=== PATIENT | female | born 1935 | race Caucasian/White ===

== ENCOUNTER 2016-05-23 12:44 | Emergency (ER) | payer OTHER ==
[~2016-05-23] VITALS: Ht 147.3 cm; Wt 40.8 kg
[~2016-05-23 12:44] MED LIST: ADALAT PO; AMARYL2 MG PO; ASPI-COR81 M1 PO; BENTYL10 MG PO; CALCIUM CARB500 MG PO; CLARITIN10 M1 PO; CLONIDINE0.1 M1 PO; DIABETA5 M1 PO; FLONASE NASAL50 MCG NS; GLIMEPIRIDE2 MG PO; HCTZ PO; JANUVIA25 MG PO; JANUVIA50 MG PO; LASIX20 MG PO; LASIX40 M1 PO; LOTRIMIN 1%30 GM TP; LYRICA75 MG PO; MECLIZINE HCL12.5 M1 PO; MICRONASE5 MG PO; NORVASC10 MG PO; PHENERGAN/DEXTRO5 ML PO; PROCARDIA XL90 MG PO; RENA-VITE RX1 TAB PO; ROCALTROL0.5 MCG PO; SIMVASTATIN20 M1 PO; TUMS500 M1 PO; ZESTRIL10 M1 PO; ZOCOR20 MG PO
[2016-05-23 13:18] VITALS: BP 124/72
--- NOTE | 2016-05-23 18:14 | NUR ---
PATIENT LEFT WITHOUT BEING SEEN BY DR. LOPEZ. NO FURTHER CARE PROVIDED FOR PATIENT.
[2016-08-01] MEDS ORDERED: LIPITOR20 MG PO (22:54)
[2016-08-01] MEDS ORDERED: CLARITIN10 MG PO (22:54)
[2016-08-06] MEDS ORDERED: AUGMENTIN 500 M1 TAB PO (09:56)
[2016-08-06] MEDS ORDERED: ASPIRIN81 M1 PO (10:20)
== END 2016-05-23 18:14 | disposition left against medical advice (07) ==
LOC: MED 12:44
DX: R52 Pain, unspecified (principal); Z53.21 Procedure and treatment not carried out due to patient leaving prior to being seen by health care provider

== ENCOUNTER 2016-07-12 10:51 | Emergency (ER) | payer OTHER ==
[~2016-07-12] VITALS: Ht 139.7 cm; Wt 45.4 kg
[2016-07-12 10:59] VITALS: BP 130/74
--- NOTE | 2016-07-12 12:03 | NUR ---
Patient ambulated to bed 5. RN evaluating patient at bedside.
--- NOTE | 2016-07-12 12:05 | NUR ---
PT BIB DAUGHTER FOR EVALUATION OF GENERALIZED WEAKNESS SINCE THIS AM. HX DM, ESRD ON DIALYSIS 3X WEEKLY W/LAST SESSION YESTERDAY. DENIES N/V/D; SKIN IS PINK/WARM/DRY; AAOX4 WITH EVEN AND STEADY GAIT; LUNGS CLEAR BL; HR EVEN AND REGULAR; PT DENIES ANY FEVER, CP, SOB, OR COUGH AT THIS TIME; PATIENT STATES PAIN OF 0/10 AT THIS TIME; VSS; PATIENT POSITIONED FOR COMFORT; HOB ELEVATED; BEDRAILS UP X2; BED DOWN. ER MD MADE AWARE OF PT STATUS.
--- NOTE | 2016-07-12 12:14 | NUR ---
Dr. Bunn evaluating patient at bedside.
--- NOTE | 2016-07-12 12:34 | NUR ---
PT TAKEN TO CT VIA GURNEY BY CLARENCE YOUNGER
--- NOTE | 2016-07-12 12:34 | NUR ---
Patient taken to CT scan via gurney by [employer].
--- NOTE | 2016-07-12 12:50 | NUR ---
PT PLACED BACK ON MONITOR, NO ACUTE DISTRESS NOTED, ABLE TO ANSWER QUESTIONS APPROPRIATELY WITH GRAND DAUGHTER INTERPRETATION AT BEDSIDE, WILL CONTINUE TO MONITOR
--- NOTE | 2016-07-12 14:55 | NUR ---
LUNCH PROVIDED TO AAO PT WITH GRAND DAUGHTER AT BEDSIDE, NO DISTRESS NOTED, ABLE TO ANSWER QUESTIONS APPROPRIATELY
--- NOTE | 2016-07-12 15:35 | NUR ---
PT ASSISTED TO THE RESTROOM VIA WHEEL CHAIR BY MICHELLE ESCALONA FOR URINE SPECIMEN, TOLERATED WELL, PLACED BACK ON MONITOR, GRAND DAUGHTER AT BEDSIDE, WILL CONTINUE TO MONITOR
[2016-07-12 17:57] VITALS: BP 134/71
--- NOTE | 2016-07-12 17:57 | NUR ---
Patient discharged with v/s stable. Written and verbal after care instructions given and explained. Patient verbalized understanding. Ambulatory with steady gait. All questions addressed prior to discharge. Advised to follow up with PMD.
[2016-08-01] MEDS ORDERED: CLARITIN10 MG PO (22:54)
[2016-08-01] MEDS ORDERED: LIPITOR20 MG PO (22:54)
[2016-08-06] MEDS ORDERED: AUGMENTIN 500 M1 TAB PO (09:56)
[2016-08-06] MEDS ORDERED: ASPIRIN81 M1 PO (10:20)
== END 2016-07-12 17:57 | disposition home or self-care (01) ==
LOC: MED 10:51
DX: R41.82 Altered mental status, unspecified (principal); I12.9 Hypertensive chronic kidney disease with stage 1 through stage 4 chronic kidney disease, or unspecified chronic kidney disease; E11.22 Type 2 diabetes mellitus with diabetic chronic kidney disease; N18.9 Chronic kidney disease, unspecified; Z99.2 Dependence on renal dialysis; Z79.899 Other long term (current) drug therapy
CPT/HCPCS: 70450; 71010; 80053; 81002; 82550; 82948; 84484; 85025; 93005; 99285; Q0092

== ENCOUNTER 2016-08-01 21:16 | Inpatient (IN) | payer OTHER ==
[~2016-08-01] VITALS: Ht 147.3 cm; Wt 44.5 kg
[~2016-08-01 21:16] MED LIST changes: -ADALAT PO; -AMARYL2 MG PO; +AMLO10TA PO; -ASPI-COR81 M1 PO; -BENTYL10 MG PO; +CALC0.5S6 PO; -CALCIUM CARB500 MG PO; -CLARITIN10 M1 PO; -CLONIDINE0.1 M1 PO; -DIABETA5 M1 PO; -FLONASE NASAL50 MCG NS; -GLIMEPIRIDE2 MG PO; -HCTZ PO; -JANUVIA25 MG PO; -JANUVIA50 MG PO; -LASIX20 MG PO; -LASIX40 M1 PO; +LISI10TA11 PO; -LOTRIMIN 1%30 GM TP; +LYR75 PO; -LYRICA75 MG PO; +MECL-270 PO; -MECLIZINE HCL12.5 M1 PO; -MICRONASE5 MG PO; -NORVASC10 MG PO; -PHENERGAN/DEXTRO5 ML PO; -PROCARDIA XL90 MG PO; -RENA-VITE RX1 TAB PO; -ROCALTROL0.5 MCG PO; +SIMV20TA1 PO; -SIMVASTATIN20 M1 PO; +SITA25TA3 PO; -TUMS500 M1 PO; -ZESTRIL10 M1 PO; -ZOCOR20 MG PO
[2016-08-01 21:29] VITALS: BP 140/74
--- NOTE | 2016-08-01 21:40 | NUR ---
PT TAKEN TO BED 3
--- NOTE | 2016-08-01 21:45 | NUR ---
80 Y/O F BIB FAMILY W/C/O GENERAL WEAKNESS AND DIZZINESS X YESTERDAY. PT ON DIALYSIS, SHUNT TO R UPPER CHEST. ON MONITOR, VSS. ER MADE AWARE.
--- NOTE | 2016-08-01 21:52 | NUR ---
Dr. Ross evaluating patient at bedside.
--- NOTE | 2016-08-01 22:27 | NUR ---
X-Ray at bedside.
[2016-08-01 22:29] LABS: BASOPHILS # (AUTO) 0.1 K/uL (0.00-0.22); EOSINOPHILS # (AUTO) 0.1 K/uL (0-0.4); MONOCYTES # (AUTO) 0.7 K/uL (0.8-1.0)
[2016-08-01 22:32] LABS: BASOPHILS % (AUTO) 2.3 % (0.0-2.0); EOSINOPHILS % (AUTO) 2.7 % (0.0-4.0); HEMATOCRIT 34.4 % (36-48); HEMOGLOBIN 11.4 g/dL (12.0-16.0); LYMPHOCYTES # (AUTO) 1.4 K/uL (2.5-16.5); LYMPHOCYTES % (AUTO) 28.8 % (20.5-51.1); MEAN CORPUSCULAR HEMOGLOBIN 33 pg (27-31); MEAN CORPUSCULAR HGB CONC 33 g/dL (33-37); MEAN CORPUSCULAR VOLUME 99 fL (80-94); NEUTROPHILS # (AUTO) 2.4 K/uL (1.8-7.7); NEUTROPHILS % (AUTO) 50.5 % (42.2-75.2); PLATELET COUNT (AUTO) 173 K/uL (140-450); RED BLOOD CELL COUNT(AUTO) 3.47 MIL/uL (4.20-5.40); RED CELL DISTRIBUTION WIDTH 13.7 % (11.6-13.7); WHITE BLOOD COUNT (AUTO) 4.7 K/uL (4.8-10.8)
--- NOTE | 2016-08-01 22:39 | NUR ---
PT RESTING IN BED. ASLEEP ON MOBITOR, VSS. NO S/S OF DISTRESS NOTED AT THE MOMENT.
[2016-08-01 22:47] LABS: PARTIAL THROMBOPLASTIN TIME 24.3 secs (22-35.6); PROTHROMBIN TIME 10.5 secs (10.8-13.4)
[2016-08-01 22:50] LABS: LACTIC ACID 0.8 mmol/L (0.4-2.0)
[2016-08-01] MEDS ORDERED: LORA10TA19 PO (22:54)
[2016-08-01] MEDS ORDERED: ATOR20TA PO (22:54)
[2016-08-01 22:55] LABS: ALANINE AMINOTRANSFERASE 14 U/L (12-78); ALBUMIN 3.3 g/dL (3.4-5.0); ALKALINE PHOSPHATASE 146 U/L (46-116); ASPARTATE AMINOTRANSFERASE 19 U/L (15-37); CALCIUM 8.1 mg/dL (8.5-10.1); CARBON DIOXIDE 30.4 mmol/L (21-32); CHLORIDE 97 mmol/L (98-107); GLUCOSE 110 mg/dL (74-106); POTASSIUM 4.4 mmol/L (3.5-5.1); SODIUM SERUM 135 mmol/L (136-145); TOTAL BILIRUBIN 0.5 mg/dL (0.0-1.0); TOTAL PROTEIN, SERUM 7.8 g/dL (6.4-8.2); UREA NITROGEN, BLOOD 23 mg/dL (7-18)
[2016-08-01 23:03] LABS: CREATININE 4.5 mg/dL (0.6-1.3)
[2016-08-01 23:04] LABS: MONOCYTES % (AUTO) 15.7 % (1.7-9.3)
--- NOTE | 2016-08-01 23:30 | NUR ---
PT RESTING IN BED, ON MONITOR. NO S/S OF DISTRESS NOTED SO FAR. WILL CONT TO MONITOR.
[2016-08-01 23:36] LABS: APPEARANCE,URINE CLOUDY (CLEAR); BILIRUBIN,URINE NEGATIVE (NEGATIVE); BLOOD, URINE 1+ (NEGATIVE); COLOR,URINE YELLOW (YELLOW); LEUKOCYTE ESTERASE ,URINE 1+ (NEGATIVE); NITRITE, URINE NEGATIVE (NEGATIVE); PH,URINE 7.5 (5.0-9.0); PROTEIN,URINE 3+ (NEGATIVE); UGLUCOSE NEGATIVE (NEGATIVE); UROBILINOGEN,URINE 0.2 EU/dL (0.2 - 1)
[2016-08-01 23:51] LABS: BACTERIA,URINE 4+ /HPF (None Seen); MUCUS,URINE 4+ /LPF (None Seen); SQUAMOUS EPITHELIAL CELL,UR 80-100 /LPF (0-3 (FEW)); WBC,URINE TOO MANY TO COUNT /HPF (0-5)
[2016-08-02] MEDS ORDERED: LEVOFLOXACIN 500 MG/D5W PREMIX 100 ML IV ONE
--- NOTE | 2016-08-02 00:16 | NUR ---
PT ASLEEP, ANTIBIOTICS RUNNING, ON MONITOR. VSS, NO S/S OF DISTRESS NOTED AT THE MOMENT. WILL CONT TO MONITOR.
--- NOTE | 2016-08-02 00:25 | NUR ---
Patient will be admitted to care of DR RIVERS. Admited to TELEMETRY. Will go to room 110 B. Belongings list completed. Report to QUEENIE ARAGON.
[2016-08-02 00:40] VITALS: BP 133/77
--- NOTE | 2016-08-02 00:40 | NUR ---
ADMITTED THIS 80 YEAR OLD FEMALE FROM ER PER MANJIT WITH CC OF DIZZINESS AND GEN WEAKNESS AFTER HEMODIALYSIS YESTERDAY, ASSESSMENT DONE, VITAL SIGNS STABLE, WITH RT CHEST TUNNELED HD CATH, DRESSING DRY AND INTACT, DENIES ANY PAIN, ORIENTED TO ROOM AND CALL LIGHT, SAFETY MEASURES IN PLACE, CALL LIGHT WITHIN REACH.
--- NOTE | 2016-08-02 00:42 | NUR ---
PT TRASFERED TO FLOOR VIA GURREBECCA, MONITOR IN BED, ACCOMPANIED BY RN AND EMT.
[2016-08-02] MEDS ORDERED: MECLIZINE 25 MG TAB PO PRN (03:15)
[2016-08-02] MEDS ORDERED: HYDROcodone/APAP 7.5/325 MG 1 TAB PO PRN (03:15)
[2016-08-02] MEDS ORDERED: ONDANSETRON 4 MG/2 ML VIAL IVP PRN (03:15)
--- NOTE | 2016-08-02 03:45 | NUR ---
PT TAKEN TO CT VIA WHEELCHAIR FOR CT OF HEAD WITHOUT CONTRAST.
[2016-08-02] MEDS ORDERED: INSULIN LISPRO SLIDING SCALE 100 UNITS/ML VIAL SUBQ PRN (03:50)
[2016-08-02] MEDS ORDERED: DEXTROSE 50% 50 ML SYR IVP PRN (03:50)
[2016-08-02 04:00] VITALS: BP 109/65
[2016-08-02 04:00] LABS: CHOL/HDL RATIO 1.8 (1-4.5); FREE T4 (FREE THYROXINE) 0.91 ng/dL (0.76-1.46); PHOSPHORUS 4.9 mg/dL (2.5-4.9); THYROID STIMULATING HORMONE 1.27 uIU/mL (0.34-3.76)
--- NOTE | 2016-08-02 04:07 | NUR ---
PT BACK FROM CT, FIRST DONE OF ROCEPHIN IVPB STARTED, MONITORED FOR REACTION.
[2016-08-02] MEDS ORDERED: cefTRIAXone 1,000 MG VIAL ONE (04:08)
--- NOTE | 2016-08-02 06:00 | NUR ---
PT SLEEPING, EASILY AROUSABLE, BLOOD SUGAR CHECKED WITH 103 RESULT, DENIES ANY PAIN, SCD'S APPLIED TO BLE, MONITORED CLOSELY.
[2016-08-02] MEDS: BLOOD GLUCOSE MONITORING 1 DEV DEV FS SCH ×4 (06:37→20:30)
--- NOTE | 2016-08-02 07:00 | NUR ---
RECEIVED REPORT FROM NIGHT NURSE, PT IS AAOX4 DANISH SPEAKING, ON ROOM AIR, SKIN INTACT , RIGHT UPPER CHEST TUNNEL CATHETER, IV TO LET WRIST 20G SALINE LOCK, INITIAL ASSESSMENT COMPLETED, REVIEWED PLAN OF CARE WITH PT, PT VERBALIZED UNDERSTANDING, ALL SAFETY PRECAUTIONS MET. CALL LIGHT WITHIN REACH. WILL CONTINUE TO MONITOR.
[2016-08-02 08:00] VITALS: BP 127/65
[2016-08-02] MEDS: amLODIPine 5 MG TAB PO SCH (09:00)
[2016-08-02] MEDS: LISINOPRIL 10 MG TAB PO SCH (09:00)
[2016-08-02] MEDS: PANTOPRAZOLE 40 MG INJ VIAL IVP SCH (09:32)
[2016-08-02] MEDS: LORATADINE 10 MG TAB PO SCH (09:32)
[2016-08-02] MEDS: PREGABALIN 25 MG CAP PO SCH ×2 (09:33→20:26)
[2016-08-02] MEDS: DOCUSATE SODIUM 100 MG GELCAP PO SCH ×2 (09:35→20:25)
--- NOTE | 2016-08-02 09:35 | NUR ---
DUE MEDICATIONS GIVEN PT TOLERATED WELL, BP MEDICATIONS NOT GIVEN BP OF 104/53, HR 53. ALL NEEDS MET. WILL CONTINUE TO MONITOR.
--- NOTE | 2016-08-02 09:54 | NUR ---
PATIENT HAS BEEN SCREENED AND CATEGORIZED MODERATE NUTRITION RISK. PATIENT WILL BE SEEN WITHIN 3-5 DAYS OF ADMISSION. 08/04/16-08/06/[address]
[2016-08-02] MEDS ORDERED: BLOOD GLUCOSE MONITORING 1 DEV DEV FS SCH (11:30)
[2016-08-02] MEDS ORDERED: NACL 0.9% 1,000 ML IV SCH (11:30)
[2016-08-02] MEDS ORDERED: ALBUTEROL SULFATE/IPRATROPIU 3 ML SOL IH PRN (11:40)
--- NOTE | 2016-08-02 11:40 | NUR ---
CHECKED IN ON PT. NO S/S OF DISTRESS OR DISCOMFORT NOTED. ALL NEEDS MET. WILL CONTINUE TO MONITOR.
[2016-08-02 12:00] VITALS: BP 121/67
[2016-08-02] MEDS ORDERED: PIPER/TAZO 2.25GM/D5W PREMIX 50 ML IV SCH (13:00)
--- NOTE | 2016-08-02 13:47 | NUR ---
DUE MEDICATIONS GIVEN. ALL NEEDS MET. CALL LIGHT WITHIN REACH. WILL CONTINUE TO MONITOR.
--- NOTE | 2016-08-02 15:00 | NUR ---
[facility] [phone].
[2016-08-02] MEDS: ALBUTEROL SULFATE/IPRATROPIU 3 ML SOL IH SCH ×3 (15:42→23:31)
--- NOTE | 2016-08-02 15:45 | NUR ---
FAMILY CURRENTLY AT BEDSIDE. UPDATED FAMILY ON PLAN OF CARE. FAMILY VERBALIZED UNDERSTANDING.
[2016-08-02 16:00] VITALS: BP 147/71
--- NOTE | 2016-08-02 16:41 | NUR ---
P.T. NOTES P.T. EVAL DONE; NURSING TO AMBULATE PATIENT AD NORY.
--- NOTE | 2016-08-02 17:16 | NUR ---
PT CURRENTLY IN BED. ALL NEEDS MET. INFORMED PT SHE WILL BE GETTING HEMODIALYSIS TOMORROW, PT VERBALIZED UNDERSTANDING.
--- NOTE | 2016-08-02 19:12 | NUR ---
ENDORSED PLAN OF CARE TO NIGHT NURSE, PT IN STABLE CONDITION.
--- NOTE | 2016-08-02 19:15 | NUR ---
RECEIVED PT AWAKE SITTING ON BED TALKING TO FAMILY MEMBERS AT BEDSIDE, VITAL SIGNS STABLE, DENIES ANY PAIN OR SOB, PT STILL HAVING OCCASIONAL DIZZINESS, SAFETY MEASURES IN PLACE, PLAN OF CARE DISCUSSED, FOR HEMODIALYSIS TOMORROW, PT AWARE, RT CHEST TUNNELED HD CATH IN PLACE, DRESSING DRY AND INTACT, CALL LIGHT WITHIN REACH.
[2016-08-02 20:00] VITALS: BP 107/61
[2016-08-02] MEDS: ATORVASTATIN 20 MG TAB PO SCH (20:25)
--- NOTE | 2016-08-02 21:00 | NUR ---
BLOOD SUGAR CHECKED WITH 252 RESULT, COVERAGE GIVEN, SNACK PROVIDED, DUE PO MEDICATIONS GIVEN, ALL NEEDS ATTENDED.
[2016-08-03] VITALS: BP 100/55
--- NOTE | 2016-08-03 | NUR ---
PT SLEEPING, EASILY AROUSABLE, VITAL SIGNS STABLE, DENIES ANY PAIN, CONTINUE TO MONITOR CLOSELY.
--- NOTE | 2016-08-03 03:30 | NUR ---
PT AWAKE, FEELS LIKE HER BLOOD SUGAR IS LOW, BLOOD SUGAR CHECKED DONE WITH 127 RESULT, VITAL SIGNS STABLE, DENIES ANY PAIN, NO SOB NOTED, MONITORED CLOSELY.
[2016-08-03] MEDS: ALBUTEROL SULFATE/IPRATROPIU 3 ML SOL IH SCH ×6 (03:45→23:21)
[2016-08-03 04:00] VITALS: BP 120/68
--- NOTE | 2016-08-03 06:00 | NUR ---
AM LABS DRAWN, BLOOD SUGAR CHECKED WITH 100 RESULT, FOR HEMODIALYSIS TODAY, MONITORED CLOSELY.
[2016-08-03 06:19] LABS: BASOPHILS # (AUTO) 0.2 K/uL (0.00-0.22); BASOPHILS % (AUTO) 3.4 % (0.0-2.0); EOSINOPHILS # (AUTO) 0.2 K/uL (0-0.4); EOSINOPHILS % (AUTO) 3.5 % (0.0-4.0); HEMATOCRIT 30.2 % (36-48); HEMOGLOBIN 9.9 g/dL (12.0-16.0); LYMPHOCYTES # (AUTO) 1.4 K/uL (2.5-16.5); LYMPHOCYTES % (AUTO) 25.4 % (20.5-51.1); MEAN CORPUSCULAR HEMOGLOBIN 33 pg (27-31); MEAN CORPUSCULAR HGB CONC 33 g/dL (33-37); MEAN CORPUSCULAR VOLUME 100 fL (80-94); MONOCYTES # (AUTO) 0.8 K/uL (0.8-1.0); MONOCYTES % (AUTO) 15.1 % (1.7-9.3); NEUTROPHILS % (AUTO) 52.6 % (42.2-75.2); PLATELET COUNT (AUTO) 160 K/uL (140-450); RED BLOOD CELL COUNT(AUTO) 3.02 MIL/uL (4.20-5.40); RED CELL DISTRIBUTION WIDTH 14.3 % (11.6-13.7); WHITE BLOOD COUNT (AUTO) 5.6 K/uL (4.8-10.8)
[2016-08-03] MEDS: BLOOD GLUCOSE MONITORING 1 DEV DEV FS SCH ×4 (06:33→20:29)
[2016-08-03 06:43] LABS: ANION GAP 16.8 (8-16); CALCIUM 8.1 mg/dL (8.5-10.1); CARBON DIOXIDE 24.7 mmol/L (21-32); CHLORIDE 97 mmol/L (98-107); GLUCOSE 95 mg/dL (74-106); POTASSIUM 5.5 mmol/L (3.5-5.1); SODIUM SERUM 133 mmol/L (136-145); UREA NITROGEN, BLOOD 48 mg/dL (7-18)
[2016-08-03 06:53] LABS: MAGNESIUM 2.2 mg/dL (1.8-2.4); PHOSPHORUS 7.5 mg/dL (2.5-4.9)
[2016-08-03 07:08] LABS: CREATININE 6.7 mg/dL (0.6-1.3)
--- NOTE | 2016-08-03 07:15 | NUR ---
PT AWAKE, NO SIGNS OF DISTRESS, REPORT GIVEN TO JAIME JEROME FOR CONTINUITY OF CARE.
--- NOTE | 2016-08-03 07:17 | NUR ---
RECEIVED REPORT FROM NASIM RN. PT RESTING IN BED. AAOX4. NO S/S OF ACUTE DISTRESS. PT DENIES PAIN. IV SITE PATENT AND INTACT. DIALYSIS SITE TO RIGHT UPPER CHEST NOTED. CALL LIGHT WITHIN REACH. SAFETY MEASURES ENSURED. WILL CONTINUE TO MONITOR.
[2016-08-03 07:50] VITALS: BP 128/64
[2016-08-03] MEDS: LORATADINE 10 MG TAB PO SCH (09:06)
[2016-08-03] MEDS: LISINOPRIL 10 MG TAB PO SCH (09:06)
[2016-08-03] MEDS: PREGABALIN 25 MG CAP PO SCH ×2 (09:06→20:25)
[2016-08-03] MEDS: amLODIPine 5 MG TAB PO SCH (09:06)
[2016-08-03] MEDS: PIPER/TAZO 2.25GM/D5W PREMIX 50 ML IV SCH ×2 (09:06→20:33)
[2016-08-03] MEDS: PANTOPRAZOLE 40 MG INJ VIAL IVP SCH (09:06)
[2016-08-03] MEDS: DOCUSATE SODIUM 100 MG GELCAP PO SCH ×2 (09:06→20:26)
--- NOTE | 2016-08-03 09:12 | NUR ---
AM MEDICATIONS GIVEN WITH EDUCATION. PT DENIES PAIN. PT VERBALIZED UNDERSTANDING. PT TOLERATED WELL. WILL CONTINUE TO MONITOR.
[2016-08-03 10:46] LABS: FOLIC ACID 14.4 ng/mL (>3.0)
[2016-08-03] MEDS ORDERED: CALCITRIOL 0.25 MCG CAPLF PO SCH (11:28)
[2016-08-03 12:00] VITALS: BP 120/60
--- NOTE | 2016-08-03 12:00 | NUR ---
DIALYSIS NURSE AT BEDSIDE. NO S/S OF ACUTE DISTRESS. PT DENIES PAIN. WILL CONTINUE TO MONITOR.
[2016-08-03] MEDS ORDERED: LORazepam 0.5 MG TAB PO PRN (14:20)
--- NOTE | 2016-08-03 15:30 | NUR ---
DIALYSIS COMPLETE. 2 L OUT. NO S/S OF ACUTE DISTRESS. PT DENIES PAIN. WILL CONTINUE TO MONITOR.
[2016-08-03 16:00] VITALS: BP 96/52
[2016-08-03] MEDS: CALCIUM ACETATE 667 MG TAB PO SCH (17:00)
--- NOTE | 2016-08-03 19:19 | NUR ---
ENDORSED PLAN OF CARE TO NIGHT RN. PT REMAINS STABLE.
--- NOTE | 2016-08-03 19:30 | NUR ---
RECEIVED REPORT FROM AM NURSE. PT FAMILY AT BEDSIDE. AOX4, ABLE TO VERBALIZE NEEDS. PT DENIES CHEST PAIN, SOB OR S/S OF ACUTE DISTRESS. PRINTS AND DRAWINGS CURATOR IN PLACE. TUNNEL CATH DIALYSIS ACCESS ON RIGHT UPPER CHEST. IV ACCESS ASYMPTOMATIC, PATENT AND INTACT. SALINE LOCKED. DISCUSSED AND REVIEWED PLAN OF CARE WITH PT. PT VERBALIZED UNDERSTANDING. SAFETY MEASURES ENSURED. CALL LIGHT WITHIN REACH. WILL CONTINUE TO MONITOR.
[2016-08-03 20:00] VITALS: BP 97/45
[2016-08-03] MEDS: ATORVASTATIN 20 MG TAB PO SCH (20:25)
[2016-08-03] MEDS: ACETAMINOPHEN 325 MG TAB PO PRN (20:26)
--- NOTE | 2016-08-03 20:42 | NUR ---
ADMINISTERED DUE MEDICATIONS WITH EDUCATION. PT VERBALIZED UNDERSTANDING, TOLERATED MEDS WELL. PT C/O PAIN. SEE PAIN ASSESSMENT. BP 97/45, TYLENOL ADMINISTERED WITH EDUCATION. PT VERBALIZED UNDERSTANDING. RT IN FOR BREATHING TREATMENT. ALL NEEDS MET. SAFETY MEASURES ENSURED. CALL LIGHT WITHIN REACH. WILL CONTINUE TO MONITOR.
[2016-08-04] VITALS (9 sets, daily range): BP systolic 85–142; BP diastolic 43–74
--- NOTE | 2016-08-04 | NUR ---
VS NOTED. CONDITION STABLE. ALL NEEDS MET. SAFETY MEASURES ENSURED. CALL LIGHT WITHIN REACH. WILL CONTINUE TO MONITOR.
[2016-08-04] MEDS: ALBUTEROL SULFATE/IPRATROPIU 3 ML SOL IH SCH ×6 (03:16→22:46)
--- NOTE | 2016-08-04 03:51 | NUR ---
CALLED ESTELLE, ELECTRONIC PUBLISHER FOR DR KAM. MADE MD AWARE THAT PT HAD DIALYSIS IN THE DAY WITH 2L FLUID OUT AND PT HAS HAD SYSTOLIC BP RANGING AROUND 96-97 AND HAS NOW RECENT BP 85/43 AND 88/46, PT SLEEPING AND ASYMPTOMATIC. STATED THAT IT IS OK AND CAN HAVE THE PT GET UP AND WALK AROUND. NO ORDERS GIVEN. WILL MONITOR PT'S CONDITION.
[2016-08-04] MEDS: ACETAMINOPHEN 325 MG TAB PO PRN (04:20)
--- NOTE | 2016-08-04 04:20 | NUR ---
PT C/O PAIN. SEE PAIN ASSESSMENT. TYLENOL ADMINISTERED DUE TO LOW BP. WILL CONTINUE TO MONITOR.
[2016-08-04] MEDS: BLOOD GLUCOSE MONITORING 1 DEV DEV FS SCH ×4 (06:06→20:57)
--- NOTE | 2016-08-04 06:07 | NUR ---
BLOOD SUGAR 111, NO INSULIN COVERAGE NEEDED. BP RECHECKED, 100/52 AND 95/54. PT ASYMPTOMATIC, DENIES DIZZINESS OR S/S OF ACUTE DISTRESS.
[2016-08-04 06:57] LABS: HEMOGLOBIN 9.3 g/dL (12.0-16.0); MEAN CORPUSCULAR HEMOGLOBIN 33 pg (27-31); MEAN CORPUSCULAR HGB CONC 33 g/dL (33-37); MEAN CORPUSCULAR VOLUME 100 fL (80-94); PLATELET COUNT (AUTO) 152 K/uL (140-450); RED CELL DISTRIBUTION WIDTH 13.6 % (11.6-13.7); WHITE BLOOD COUNT (AUTO) 5.1 K/uL (4.8-10.8)
[2016-08-04 07:11] LABS: CALCIUM 8.3 mg/dL (8.5-10.1); CARBON DIOXIDE 23.6 mmol/L (21-32); CHLORIDE 96 mmol/L (98-107); GLUCOSE 107 mg/dL (74-106); POTASSIUM 4.6 mmol/L (3.5-5.1); SODIUM SERUM 132 mmol/L (136-145); UREA NITROGEN, BLOOD 37 mg/dL (7-18)
[2016-08-04 07:20] LABS: CREATININE 4.7 mg/dL (0.6-1.3)
--- NOTE | 2016-08-04 07:30 | NUR ---
CALLED DR. REDMAN REGARDING PT'S CRITICAL CREATININE AND BUN. DR ASKED TO NURSE CALL BACK ONCE ELECTROLYTE RESULTS ARE IN.
[2016-08-04 07:32] LABS: MAGNESIUM 1.7 mg/dL (1.8-2.4); PHOSPHORUS 6.3 mg/dL (2.5-4.9)
--- NOTE | 2016-08-04 07:35 | NUR ---
ENDORSED PLAN OF CARE TO AM NURSE. CONDITION STABLE.
--- NOTE | 2016-08-04 07:36 | NUR ---
RECEIVED CARE OF PT FROM PRINCIPAL CLOUD ARCHITECT NURSE AT BEDSIDE. PT IS SLEEPING. PT HAS IV ON L WRIST 20 G SL. PT HAS TUNNEL CATH ON R UPPER CHEST FOR D/A MWF. NO DISTRESS NOTED. CALL LIGHT WITHIN REACH. WILL CONTINUE TO MONITOR.
[2016-08-04 08:06] LABS: EOSINOPHILS % (MANUAL) 5 % (0-4); LYMPHOCYTES % (MANUAL) 23 % (20-46); MONOCYTES % (MANUAL) 15 % (5-12); NEUTROPHILS % (MANUAL) 57 (43-65)
[2016-08-04] MEDS: PIPER/TAZO 2.25GM/D5W PREMIX 50 ML IV SCH ×2 (08:13→20:55)
[2016-08-04] MEDS: CALCIUM ACETATE 667 MG TAB PO SCH ×3 (08:14→16:34)
[2016-08-04] MEDS: PREGABALIN 25 MG CAP PO SCH ×2 (08:14→20:55)
[2016-08-04] MEDS: CALCITRIOL 0.25 MCG CAPLF PO SCH (08:14)
[2016-08-04] MEDS: ASPIRIN 81 MG TAB.CHEW PO SCH (08:14)
[2016-08-04] MEDS: PANTOPRAZOLE 40 MG INJ VIAL IVP SCH (08:14)
[2016-08-04] MEDS: amLODIPine 5 MG TAB PO SCH (08:15)
[2016-08-04] MEDS: LISINOPRIL 10 MG TAB PO SCH (08:15)
[2016-08-04] MEDS: DOCUSATE SODIUM 100 MG GELCAP PO SCH ×2 (08:15→20:55)
[2016-08-04] MEDS: LORATADINE 10 MG TAB PO SCH (08:15)
--- NOTE | 2016-08-04 09:30 | NUR ---
PT FINISHED BREAKFAST. RESTING IN BED. NO COMPLAINTS AT THIS TIME. CALL LIGHT WITHIN REACH. WILL CONTINUE TO MONITOR.
--- NOTE | 2016-08-04 09:49 | NUR ---
DR. BERGER ORDERED 1 GM MAGNESIUM SULFATE IV. WILL SEE PT AND WRITE D/A ORDER. WILL CARRY OUT ORDER.
[2016-08-04] MEDS ORDERED: MAG SULF 2000 MG/WATER PREMIX 50 ML IV ONE (09:50)
[2016-08-04] MEDS ORDERED: MAGNESIUM SULFATE 50% 1,000 MG in NACL 0.9% 50 ML IV SCH (11:00)
--- NOTE | 2016-08-04 11:38 | NUR ---
CHECKED BS AND ADMINISTERED NOON MED. PT TOLERATED WELL. CALL LIGHT WITHIN REACH. WILL CONTINUE TO MONITOR.
--- NOTE | 2016-08-04 13:00 | NUR ---
FAMILY VISITED AT BEDSIDE. PT IS SLEEPING. NO DISTRESS NOTED. CALL LIGHT WITHIN REACH. WILL CONTINUE TO MONITOR.
--- NOTE | 2016-08-04 15:30 | NUR ---
VS WNL. CALL LIGHT WITHIN REACH. WILL CONTINUE TO MONITOR.
--- NOTE | 2016-08-04 17:52 | NUR ---
PT SAT UP IN BED TO EAT DINNER. TOLERATING WELL. CALL LIGHT WITHIN REACH. WILL CONTINUE TO MONITOR.
--- NOTE | 2016-08-04 18:41 | NUR ---
FAMILY AT BEDSIDE. PT IS EATING. CALL LIGHT WITHIN REACH. WILL CONTINUE TO MONITOR.
--- NOTE | 2016-08-04 19:15 | NUR ---
ENDORSED CARE OF PT TO POT SANDER NURSE AT BEDSIDE. PT IN STABLE CONDITION.
--- NOTE | 2016-08-04 19:30 | NUR ---
RECEIVED REPORT FROM AM NURSE. PT FAMILY AT BEDSIDE. AOX4, ABLE TO VERBALIZE NEEDS. PT DENIES CHEST PAIN, SOB OR S/S OF ACUTE DISTRESS. FOREIGN LANGUAGE INTERPRETER IN PLACE. TUNNEL CATH DIALYSIS ACCESS ON RIGHT UPPER CHEST. SCD IN PLACE IV ACCESS ASYMPTOMATIC, PATENT AND INTACT. SALINE LOCKED. DISCUSSED AND REVIEWED PLAN OF CARE WITH PT. PT VERBALIZED UNDERSTANDING. SAFETY MEASURES ENSURED. CALL LIGHT WITHIN REACH. WILL CONTINUE TO MONITOR.
[2016-08-04] MEDS: ATORVASTATIN 20 MG TAB PO SCH (20:55)
--- NOTE | 2016-08-04 21:01 | NUR ---
PT C/O PAIN. SEE PAIN ASSESSMENT. ADMINISTERED PAIN MEDICATION ORDERED. ADMINISTERED DUE MEDICATIONS WITH EDUCATION. PT VERBALIZED UNDERSTANDING. SAFETY MEASURES ENSURED. CALL LIGHT WITHIN REACH. WILL CONTINUE TO MONITOR.
[2016-08-05] VITALS: BP 126/80
--- NOTE | 2016-08-05 | NUR ---
CONDITION STABLE. DENIES PAIN. ALL NEEDS MET. SAFETY MEASURES ENSURED. CALL LIGHT WITHIN REACH. WILL CONTINUE TO MONITOR.
[2016-08-05] MEDS: ALBUTEROL SULFATE/IPRATROPIU 3 ML SOL IH SCH ×6 (02:18→23:27)
[2016-08-05 04:00] VITALS: BP 121/62
--- NOTE | 2016-08-05 04:13 | NUR ---
PT SLEEPING. CONDITION STABLE. ALL NEEDS MET. SAFETY MEASURES ENSURED. CALL LIGHT WITHIN REACH. WILL CONTINUE TO MONITOR.
[2016-08-05 06:25] LABS: BASOPHILS # (AUTO) 0.1 K/uL (0.00-0.22); BASOPHILS % (AUTO) 1.9 % (0.0-2.0); EOSINOPHILS # (AUTO) 0.4 K/uL (0-0.4); EOSINOPHILS % (AUTO) 6.7 % (0.0-4.0); HEMATOCRIT 29.5 % (36-48); HEMOGLOBIN 9.7 g/dL (12.0-16.0); LYMPHOCYTES # (AUTO) 1.5 K/uL (2.5-16.5); LYMPHOCYTES % (AUTO) 24.9 % (20.5-51.1); MEAN CORPUSCULAR HEMOGLOBIN 33 pg (27-31); MEAN CORPUSCULAR HGB CONC 33 g/dL (33-37); MEAN CORPUSCULAR VOLUME 100 fL (80-94); MONOCYTES # (AUTO) 0.8 K/uL (0.8-1.0); MONOCYTES % (AUTO) 12.6 % (1.7-9.3); NEUTROPHILS # (AUTO) 3.4 K/uL (1.8-7.7); NEUTROPHILS % (AUTO) 53.9 % (42.2-75.2); PLATELET COUNT (AUTO) 164 K/uL (140-450); RED BLOOD CELL COUNT(AUTO) 2.94 MIL/uL (4.20-5.40); RED CELL DISTRIBUTION WIDTH 13.7 % (11.6-13.7); WHITE BLOOD COUNT (AUTO) 6.2 K/uL (4.8-10.8)
[2016-08-05] MEDS: BLOOD GLUCOSE MONITORING 1 DEV DEV FS SCH ×4 (06:35→20:42)
--- NOTE | 2016-08-05 06:35 | NUR ---
BLOOD SUGAR 80, NO INSULIN COVERAGE NEEDED. CONDITION STABLE.
[2016-08-05 07:02] LABS: ANION GAP 15.6 (8-16); CALCIUM 8.6 mg/dL (8.5-10.1); CARBON DIOXIDE 25.5 mmol/L (21-32); CHLORIDE 92 mmol/L (98-107); GLUCOSE 80 mg/dL (74-106); POTASSIUM 5.1 mmol/L (3.5-5.1); SODIUM SERUM 128 mmol/L (136-145); UREA NITROGEN, BLOOD 48 mg/dL (7-18)
[2016-08-05 07:15] LABS: MAGNESIUM 2.3 mg/dL (1.8-2.4); PHOSPHORUS 7.2 mg/dL (2.5-4.9)
--- NOTE | 2016-08-05 07:26 | NUR ---
ENDORSED PLAN OF CARE TO AM NURSE. CONDITION STABLE.
--- NOTE | 2016-08-05 07:27 | NUR ---
RECEIVED PT FROM COTTON CLASSER AIDE NURSE AT BEDSIDE. PT HAS IV ON L WRIST 20 G SL. PT HAS TUNNELED CATH ON R U CHEST FOR D/A. D/A NURSE HERE TO START D/A. PT VS WNL. CALL LIGHT WITHIN REACH. WILL CONTINUE TO MONITOR.
[2016-08-05 07:41] LABS: CREATININE 6.3 mg/dL (0.6-1.3)
[2016-08-05 08:00] VITALS: BP 139/71
[2016-08-05] MEDS: CALCITRIOL 0.25 MCG CAPLF PO SCH (08:18)
[2016-08-05] MEDS: PREGABALIN 25 MG CAP PO SCH ×2 (08:18→20:36)
[2016-08-05] MEDS: PANTOPRAZOLE 40 MG INJ VIAL IVP SCH (08:18)
[2016-08-05] MEDS: PIPER/TAZO 2.25GM/D5W PREMIX 50 ML IV SCH ×2 (08:18→20:37)
[2016-08-05] MEDS: ASPIRIN 81 MG TAB.CHEW PO SCH (08:19)
[2016-08-05] MEDS: LORATADINE 10 MG TAB PO SCH (08:19)
[2016-08-05] MEDS: CALCIUM ACETATE 667 MG TAB PO SCH ×3 (08:19→16:27)
[2016-08-05] MEDS: DOCUSATE SODIUM 100 MG GELCAP PO SCH ×2 (08:19→20:36)
--- NOTE | 2016-08-05 08:45 | NUR ---
PT HAD 2 EPISODES OF BRADYCARDIA TO 40. HR WENT BACK UP TO 70S. NO DISTRESS NOTED. D/A NURSE AT BEDSIDE.
--- NOTE | 2016-08-05 10:30 | NUR ---
PT GETTING HD. NO DISTRESS NOTED. HD NURSE AT BEDSIDE. CALL LIGHT WITHIN REACH. WILL CONTINUE TO MONITOR.
--- NOTE | 2016-08-05 10:37 | NUR ---
PT IS NOT SOB AND NOT IN RESPIRATORY DISTRESS AT THIS TIME. SPO2 98% ON ROOM AIR. WILL CONTINUE TO MONITOR.
--- NOTE | 2016-08-05 11:20 | NUR ---
CONSTANTIN D/A NURSE FINISHED D/A. NO DISTRESS NOTED. PT TOLERATED WELL. CALL LIGHT WITHIN REACH. WILL CONTINUE TO MONITOR.
[2016-08-05 12:00] VITALS: BP 139/71
--- NOTE | 2016-08-05 12:30 | NUR ---
PT SAT UP AT EDGE OF BED TO EAT LUNCH. TOLERATED WELL. CALL LIGHT WITHIN REACH. WILL CONTINUE TO MONITOR.
--- NOTE | 2016-08-05 14:00 | NUR ---
SPOKE TO DR REGARDING PT'S 2 EPISODES OF HR DROP TO 40. STATED TO MONITOR PT.
[2016-08-05 16:00] VITALS: BP 154/73
--- NOTE | 2016-08-05 16:00 | NUR ---
NO COMPLAINTS AT THIS TIME. NO DISTRESS NOTED. SON AND [id number] AT BEDSIDE. CALL LIGHT WITHIN REACH. WILL CONTINUE TO MONITOR.
--- NOTE | 2016-08-05 19:25 | NUR ---
PT IN STABLE CONDITION. ENDORSED TO DECAL CUTTER AT BEDSIDE.
--- NOTE | 2016-08-05 19:26 | NUR ---
RECEIVED REPORT FROM DAY RN FOR CONTINUITY OF CARE. PATIENT IS A&OX4, DISCUSSED PLAN OF CARE WITH PATIENT AND FAMILY MEMBER AT BEDSIDE, VERBALIZED UNDERSTANDING. SHIFT ASSESSMENT DONE, VS TAKEN, STABLE AT THIS TIME. NO S/S OF RESPIRATORY DISTRESS OR DISCOMFORT NOTED ON ROOM AIR. PATIENT DENIES PAIN. IV TO LT WRIST PATENT AND FLUSHED. RT UPPER CHEST TUNNEL CATHETER. SAFETY/FALL PRECAUTIONS ENFORCED. CALL LIGHT PLACED WITHIN REACH. WILL CONTINUE TO MONITOR.
[2016-08-05 20:00] VITALS: BP 166/79
[2016-08-05] MEDS: ATORVASTATIN 20 MG TAB PO SCH (20:35)
--- NOTE | 2016-08-05 20:35 | NUR ---
DUE MEDICATIONS ADMINISTERED, TOLERATED WELL AND VERBALIZED UNDERSTANDING OF USE. CALL LIGHT WITHIN REACH.
--- NOTE | 2016-08-05 22:00 | NUR ---
PATIENT SLEEPING AT THIS TIME, NO S/S OF DISTRESS OR DISCOMFORT NOTED. CALL LIGHT WITHIN REACH.
[2016-08-06] VITALS: BP 146/71
--- NOTE | 2016-08-06 | NUR ---
VITAL SIGNS STABLE AT THIS TIME. ALL NEEDS MET, PATIENT RESTING WITH NO S/S OF DISTRESS OR DISCOMFORT NOTED. CALL LIGHT WITHIN REACH.
--- NOTE | 2016-08-06 01:48 | NUR ---
PATIENT SLEEPING AT THIS TIME, NO S/S OF DISTRESS OR DISCOMFORT. SAFETY MEASURES ENFORCED, CALL LIGHT WITHIN REACH.
[2016-08-06] MEDS: ALBUTEROL SULFATE/IPRATROPIU 3 ML SOL IH SCH ×3 (03:09→11:20)
[2016-08-06 04:00] VITALS: BP 142/71
--- NOTE | 2016-08-06 04:15 | NUR ---
VITAL SIGNS STABLE, PATIENT RESTING AT THIS TIME. CALL LIGHT WITHIN REACH.
--- NOTE | 2016-08-06 06:15 | NUR ---
BLOOD SUGAR TAKEN, NO COVERAGE NEEDED. PATIENT RESTING AT THIS TIME. CALL LIGHT WITHIN REACH.
[2016-08-06] MEDS: BLOOD GLUCOSE MONITORING 1 DEV DEV FS SCH ×2 (06:16→12:12)
[2016-08-06 06:32] LABS: BASOPHILS # (AUTO) 0.2 K/uL (0.00-0.22); BASOPHILS % (AUTO) 3.3 % (0.0-2.0); EOSINOPHILS # (AUTO) 0.3 K/uL (0-0.4); EOSINOPHILS % (AUTO) 5.9 % (0.0-4.0); HEMATOCRIT 27.8 % (36-48); HEMOGLOBIN 9.2 g/dL (12.0-16.0); LYMPHOCYTES # (AUTO) 1.1 K/uL (2.5-16.5); LYMPHOCYTES % (AUTO) 19.6 % (20.5-51.1); MEAN CORPUSCULAR HEMOGLOBIN 33 pg (27-31); MEAN CORPUSCULAR HGB CONC 33 g/dL (33-37); MEAN CORPUSCULAR VOLUME 100 fL (80-94); MONOCYTES # (AUTO) 0.8 K/uL (0.8-1.0); MONOCYTES % (AUTO) 15.1 % (1.7-9.3); NEUTROPHILS % (AUTO) 56.1 % (42.2-75.2); PLATELET COUNT (AUTO) 156 K/uL (140-450); RED BLOOD CELL COUNT(AUTO) 2.77 MIL/uL (4.20-5.40); RED CELL DISTRIBUTION WIDTH 13.6 % (11.6-13.7); WHITE BLOOD COUNT (AUTO) 5.4 K/uL (4.8-10.8)
[2016-08-06 07:06] LABS: ANION GAP 13.1 (8-16); CALCIUM 8.4 mg/dL (8.5-10.1); CARBON DIOXIDE 26.5 mmol/L (21-32); CHLORIDE 99 mmol/L (98-107); CREATININE 3.6 mg/dL (0.6-1.3); GLUCOSE 96 mg/dL (74-106); POTASSIUM 4.6 mmol/L (3.5-5.1); SODIUM SERUM 134 mmol/L (136-145); UREA NITROGEN, BLOOD 27 mg/dL (7-18)
[2016-08-06 07:18] LABS: MAGNESIUM 1.7 mg/dL (1.8-2.4); PHOSPHORUS 5.6 mg/dL (2.5-4.9)
--- NOTE | 2016-08-06 07:32 | NUR ---
ENDORSED PATIENT TO DAY RN FOR CONTINUITY OF CARE, PATIENT IS IN STABLE CONDITION.
--- NOTE | 2016-08-06 07:35 | NUR ---
RECEIVED REPORT FROM QUEENIE WOODALL. PT IS RESTING IN BED, A/OX4, AMBULATORY, IV IS ON THE LT WRIST, PATENT, INTACT, FLUSHING WELL, PT HAS RT UPPER CHEST TUNNEL CATHETER FOR DIALYSIS, SKIN IS INTACT, NO S/S OF RESPIRATORY DISTRESS OR DISCOMFORT NOTED, DISCUSSED PLAN OF CARE WITH PT, PT VERBALIZED UNDERSTANDING, CALL LIGHT IS WITHIN REACH, WILL CONTINUE TO MONITOR.
[2016-08-06 08:00] VITALS: BP 148/75
[2016-08-06] MEDS: PREGABALIN 25 MG CAP PO SCH (08:26)
[2016-08-06] MEDS: CALCITRIOL 0.25 MCG CAPLF PO SCH (08:26)
[2016-08-06] MEDS: ASPIRIN 81 MG TAB.CHEW PO SCH (08:27)
[2016-08-06] MEDS: LORATADINE 10 MG TAB PO SCH (08:27)
[2016-08-06] MEDS: PANTOPRAZOLE 40 MG INJ VIAL IVP SCH (08:27)
[2016-08-06] MEDS: DOCUSATE SODIUM 100 MG GELCAP PO SCH (08:27)
[2016-08-06] MEDS: CALCIUM ACETATE 667 MG TAB PO SCH (08:27)
[2016-08-06] MEDS: PIPER/TAZO 2.25GM/D5W PREMIX 50 ML IV SCH (08:28)
--- NOTE | 2016-08-06 09:06 | NUR ---
08/06/16 RD INITIAL ASSESSMENT COMPLETED PLEASE REFER TO NUTRITION ASSESSMENT UNDER CARE ACTIVITY FOR ESTIMATED NUTRITIONAL NEEDS. RD RECOMMENDATIONS: 1. CONTINUE ON CURRENT DIET. 2. RD WILL F/U 5-7 DAYS; LOW RISK. DAVID ISSA MS, RDN
--- NOTE | 2016-08-06 09:35 | NUR ---
PT SLEEPING IN BED, NO S/S OF RESPIRATORY DISTRESS OR DISCOMFORT NOTED, CALL LIGHT WITHIN REACH, WILL CONTINUE TO MONITOR.
[2016-08-06] MEDS ORDERED: AMOX-999 PO (09:56)
[2016-08-06] MEDS ORDERED: ASPI81CT89 PO (10:20)
--- NOTE | 2016-08-06 11:00 | NUR ---
PT RESTING IN BED WATCHING TV, CALL LIGHT IS WITHIN REACH.
[2016-08-06 12:00] VITALS: BP 154/79
--- NOTE | 2016-08-06 12:00 | NUR ---
PT DISCHARGE INSTRUCTIONS GIVEN, ID WRIST BAND REMOVED, IV REMOVED, CATHETER TIP INTACT.
--- NOTE | 2016-08-06 12:30 | NUR ---
PT DISCHARGED IN STABLE CONDITION ACCOMPANIED BY HER GRAND DAUGHTER.
== END 2016-08-06 12:30 | disposition home or self-care (01) | DRG 177 ==
LOC: MED 21:16 → MTU 08-02 00:37
PROVIDERS: ADMIT Family Medicine; ATTEND Family Medicine
PROC: 5A1D60Z (ICD-10-PCS; principal; 2016-08-02)
DX: J69.0 Pneumonitis due to inhalation of food and vomit (principal); N17.0 Acute kidney failure with tubular necrosis; N18.6 End stage renal disease; I50.43 Acute on chronic combined systolic (congestive) and diastolic (congestive) heart failure; K85.90 Acute pancreatitis without necrosis or infection, unspecified; G93.41 Metabolic encephalopathy; N39.0 Urinary tract infection, site not specified; E87.1 Hypo-osmolality and hyponatremia; E44.0 Moderate protein-calorie malnutrition; I13.2 Hypertensive heart and chronic kidney disease with heart failure and with stage 5 chronic kidney disease, or end stage renal disease; E78.5 Hyperlipidemia, unspecified; E11.22 Type 2 diabetes mellitus with diabetic chronic kidney disease; E83.39 Other disorders of phosphorus metabolism; E83.51 Hypocalcemia; E87.5 Hyperkalemia; E83.42 Hypomagnesemia; D63.1 Anemia in chronic kidney disease; M54.5 Low back pain; G90.9 Disorder of the autonomic nervous system, unspecified; Z79.899 Other long term (current) drug therapy; Z83.3 Family history of diabetes mellitus; Z82.49 Family history of ischemic heart disease and other diseases of the circulatory system; Z99.2 Dependence on renal dialysis; Z68.20 Body mass index [BMI] 20.0-20.9, adult; Z71.3 Dietary counseling and surveillance; Z28.21 Immunization not carried out because of patient refusal
CPT/HCPCS: 36415; 70450; 71010; 72110; 76700; 80048; 80053; 81001; 82140; 82150; 82607; 82728; 82746; 82948; 83036; 83540; 83605; 83690; 83735; 83880; 84100; 84439; 84443; 84484; 85025; 85045; 85610; 85730; 87040; 87081; 87086; 93005; 93880; 93925; 93970; 94640; 96365; 97116; 99285; C9113; J0696; J1815; J1956; J2543; J3475; J7030; J7060; J7620; Q0092

== ENCOUNTER 2017-02-01 13:48 | Emergency (ER) | payer OTHER ==
[~2017-02-01] VITALS: Ht 144.8 cm; Wt 54.4 kg
[~2017-02-01 13:48] MED LIST changes: +ASPI81CT89 PO; +ATOR20TA PO; +BISA5TAB79 PO; +LACT10CA PO; +LORA10TA19 PO; -MECL-270 PO; +MECL-272 PO; +NITR100C7 PO; -SIMV20TA1 PO; +[UNRECOGNIZED DRUG - CODE] MC
[2017-02-01 14:37] VITALS: BP 125/61
--- NOTE | 2017-02-01 14:43 | NUR ---
pt to lobby awaiting room for MSE. VSS. NAD. deena salasor aware of pt status.
[2017-02-01 15:29] LABS: BASOPHILS # (AUTO) 0.2 K/uL (0.00-0.22); BASOPHILS % (AUTO) 2.9 % (0.0-2.0); EOSINOPHILS # (AUTO) 0.2 K/uL (0-0.4); EOSINOPHILS % (AUTO) 3.6 % (0.0-4.0); HEMATOCRIT 34.5 % (36-48); HEMOGLOBIN 11.9 g/dL (12.0-16.0); LYMPHOCYTES # (AUTO) 1.9 K/uL (2.5-16.5); LYMPHOCYTES % (AUTO) 34.9 % (20.5-51.1); MEAN CORPUSCULAR HEMOGLOBIN 35 pg (27-31); MEAN CORPUSCULAR HGB CONC 35 g/dL (33-37); MEAN CORPUSCULAR VOLUME 100 fL (80-94); MONOCYTES # (AUTO) 0.4 K/uL (0.8-1.0); NEUTROPHILS # (AUTO) 2.8 K/uL (1.8-7.7); NEUTROPHILS % (AUTO) 51.6 % (42.2-75.2); PLATELET COUNT (AUTO) 123 K/uL (140-450); RED BLOOD CELL COUNT(AUTO) 3.45 MIL/uL (4.20-5.40); RED CELL DISTRIBUTION WIDTH 13.4 % (11.6-13.7); WHITE BLOOD COUNT (AUTO) 5.5 K/uL (4.8-10.8)
[2017-02-01 16:00] LABS: PROTHROMBIN TIME 9.8 secs (10.8-13.4)
[2017-02-01 16:07] LABS: ALBUMIN 3.5 g/dL (3.4-5.0); ANION GAP 9.8 (8-16); ASPARTATE AMINOTRANSFERASE 25 U/L (15-37); CARBON DIOXIDE 34.4 mmol/L (21-32); CHLORIDE 99 mmol/L (98-107); GLUCOSE 89 mg/dL (74-106); POTASSIUM 3.2 mmol/L (3.5-5.1); SODIUM SERUM 140 mmol/L (136-145); TOTAL BILIRUBIN 0.6 mg/dL (0.0-1.0); UREA NITROGEN, BLOOD 21 mg/dL (7-18)
[2017-02-01 16:12] LABS: CREATININE 4.4 mg/dL (0.6-1.3)
--- NOTE | 2017-02-01 16:13 | NUR ---
PT AMBULATED TO ER BED 12
--- NOTE | 2017-02-01 16:15 | NUR ---
81f bib with c/o shakiness and muscle spasm s/p dialysis today at 1200;hx OF dm, esrd, htn .DENIES N/V/D; SKIN IS PINK/WARM/DRY; AAOX4 WITH EVEN AND STEADY GAIT; LUNGS CLEAR BL; HR EVEN AND REGULAR; PT DENIES ANY FEVER, CP OR COUGH AT THIS TIME; PATIENT STATES PAIN OF 0/10 AT THIS TIME;PATIENT POSITIONED FOR COMFORT; HOB ELEVATED; BEDRAILS UP X2; BED DOWN. ALL MONITORS IN PLACED;ER MD MADE AWARE OF PT STATUS.
[2017-02-01] MEDS ORDERED: LORazepam 1 MG TAB PO ONE (16:40)
[2017-02-01] MEDS ORDERED: PANTOPRAZOLE 40 MG TABEC PO ONE (16:40)
[2017-02-01 17:06] VITALS: BP 166/65
--- NOTE | 2017-02-01 17:06 | NUR ---
Patient discharged with v/s stable. Written and verbal after care instructions given and explained. Patient alert, oriented and verbalized understanding of instructions. Ambulatory with steady gait. All questions addressed prior to discharge. ID band removed. Patient advised to follow up with PMD. Rx of motrin and tramadol given. Patient educated on indication of medication including possible reaction and side effects. Opportunity to ask questions provided and answered.
== END 2017-02-01 17:06 | disposition home or self-care (01) ==
LOC: MED 13:48
DX: K29.70 Gastritis, unspecified, without bleeding (principal); F41.9 Anxiety disorder, unspecified; E11.9 Type 2 diabetes mellitus without complications; I10 Essential (primary) hypertension
CPT/HCPCS: 36415; 71010; 80053; 82948; 84484; 85025; 85610; 85730; 93005; 99285; Q0092

== ENCOUNTER 2017-04-17 14:48 | Emergency (ER) | payer OTHER ==
[~2017-04-17] VITALS: Ht 149.9 cm; Wt 47.6 kg
--- NOTE | 2017-04-17 14:57 | NUR ---
PT BIBA TO BED 2
[2017-04-17 15:00] VITALS: BP 168/71
--- NOTE | 2017-04-17 15:00 | NUR ---
WEAKNESS AND DIZZINESS AFTER DIALYSIS TODAY. DENIES CHEST PAIN,SOB,NO N/V. NO DIARRHEA. Hx: HTN,DM. NO MEDS. DM AND HTN CONTROLLED BY DIET. LT. UPPER ARM DIALYSIS ACCESS. SKIN IS PINK/WARM/DRY; LUNGS CLEAR BL; HR EVEN AND REGULAR; PT DENIES ANY FEVER, CP, SOB, OR COUGH AT THIS TIME; PATIENT STATES PAIN OF 0/10 AT THIS TIME; VSS; PATIENT POSITIONED FOR COMFORT; HOB ELEVATED; BEDRAILS UP X2; BED DOWN. ER MD MADE AWARE OF PT STATUS.
[2017-04-17 16:50] LABS: BASOPHILS # (AUTO) 0.2 K/uL (0.00-0.22); EOSINOPHILS # (AUTO) 0.2 K/uL (0-0.4); HEMATOCRIT 32.6 % (36-48); HEMOGLOBIN 10.8 g/dL (12.0-16.0); LYMPHOCYTES # (AUTO) 1.5 K/uL (2.5-16.5); MEAN CORPUSCULAR HEMOGLOBIN 34 pg (27-31); MEAN CORPUSCULAR HGB CONC 33 g/dL (33-37); MEAN CORPUSCULAR VOLUME 102 fL (80-94); MONOCYTES # (AUTO) 0.6 K/uL (0.8-1.0); NEUTROPHILS # (AUTO) 2.9 K/uL (1.8-7.7); PLATELET COUNT (AUTO) 137 K/uL (140-450); RED BLOOD CELL COUNT(AUTO) 3.19 MIL/uL (4.20-5.40); RED CELL DISTRIBUTION WIDTH 12.9 % (11.6-13.7); WHITE BLOOD COUNT (AUTO) 5.4 K/uL (4.8-10.8)
[2017-04-17 17:11] LABS: ANION GAP 7.6 (8-16); CARBON DIOXIDE 33.8 mmol/L (21-32); CHLORIDE 101 mmol/L (98-107); CREATININE 3.7 mg/dL (0.6-1.3); GLUCOSE 119 mg/dL (74-106); POTASSIUM 3.4 mmol/L (3.5-5.1); SODIUM SERUM 139 mmol/L (136-145); UREA NITROGEN, BLOOD 31 mg/dL (7-18)
[2017-04-17 17:15] LABS: ALBUMIN 3.1 g/dL (3.4-5.0); ASPARTATE AMINOTRANSFERASE 17 U/L (15-37); TOTAL BILIRUBIN 0.9 mg/dL (0.0-1.0)
--- NOTE | 2017-04-17 17:25 | NUR ---
pt resting in bed, no s/s of respiratory distress or discomfort noted. family at bedside.
[2017-04-17 18:39] VITALS: BP 150/63
--- NOTE | 2017-04-17 18:41 | NUR ---
Patient discharged with v/s stable. Written and verbal after care instructions given and explained. Patient verbalized understanding. Ambulatory with steady gait. All questions addressed prior to discharge. Advised to follow up with PMD. PT LEFT WITH FAMILY.
== END 2017-04-17 18:41 | disposition home or self-care (01) ==
LOC: MED 14:48
DX: I12.0 Hypertensive chronic kidney disease with stage 5 chronic kidney disease or end stage renal disease (principal); E11.22 Type 2 diabetes mellitus with diabetic chronic kidney disease; N18.6 End stage renal disease; Z99.2 Dependence on renal dialysis; R53.1 Weakness; Z79.82 Long term (current) use of aspirin; Z79.899 Other long term (current) drug therapy
CPT/HCPCS: 36415; 80053; 82948; 84484; 85025; 93005; 99285

== ENCOUNTER 2017-06-23 07:20 | Emergency (ER) | payer OTHER ==
[~2017-06-23] VITALS: Ht 144.8 cm; Wt 46.0 kg
[2017-06-23 07:29] VITALS: BP 108/52
--- NOTE | 2017-06-23 07:37 | NUR ---
PT AMBULATES TO BED 3
[2017-06-23] MEDS ORDERED: MECLIZINE 25 MG TAB PO ONE (07:55)
--- NOTE | 2017-06-23 08:16 | NUR ---
81/F PRESENT TO ER C/O GENERALYZED WEAKNESS, DIZZINESS TODAY; DENIES NVD; ON DIALYSIS 3X WK; HAD SIMILAR EPISODE DURING DIALYSIS; AAOX4 WITH EVEN AND STEADY GAIT; LUNGS CLEAR BL; HR EVEN AND REGULAR; PT DENIES ANY FEVER, CP, SOB, OR COUGH AT THIS TIME; PATIENT STATES PAIN OF 0/10 AT THIS TIME; VSS; PATIENT POSITIONED FOR COMFORT; HOB ELEVATED; BEDRAILS UP X2; BED DOWN. ER MD MADE AWARE OF PT STATUS.
[2017-06-23 08:23] LABS: BASOPHILS % (AUTO) 0.8 % (0.0-2.0); EOSINOPHILS # (AUTO) 0.2 K/uL (0-0.4); EOSINOPHILS % (AUTO) 3.3 % (0.0-4.0); HEMATOCRIT 36.6 % (36-48); HEMOGLOBIN 12.2 g/dL (12.0-16.0); LYMPHOCYTES # (AUTO) 2.4 K/uL (2.5-16.5); LYMPHOCYTES % (AUTO) 38.4 % (20.5-51.1); MEAN CORPUSCULAR HEMOGLOBIN 35 pg (27-31); MEAN CORPUSCULAR HGB CONC 33 g/dL (33-37); MEAN CORPUSCULAR VOLUME 103.3 fL (80-94); MONOCYTES # (AUTO) 0.6 K/uL (0.8-1.0); MONOCYTES % (AUTO) 8.7 % (1.7-9.3); NEUTROPHILS # (AUTO) 3.1 K/uL (1.8-7.7); NEUTROPHILS % (AUTO) 48.8 % (42.2-75.2); PLATELET COUNT (AUTO) 137 K/uL (140-450); RED BLOOD CELL COUNT(AUTO) 3.54 MIL/uL (4.20-5.40); RED CELL DISTRIBUTION WIDTH 13.7 % (11.6-13.7); WHITE BLOOD COUNT (AUTO) 6.4 K/uL (4.8-10.8)
[2017-06-23 09:25] LABS: ALBUMIN 3.6 g/dL (3.4-5.0); ANION GAP 20.4 (8-16); ASPARTATE AMINOTRANSFERASE 21 U/L (15-37); CARBON DIOXIDE 23.5 mmol/L (21-32); CHLORIDE 100 mmol/L (98-107); GLUCOSE 200 mg/dL (74-106); POTASSIUM 3.9 mmol/L (3.5-5.1); SODIUM SERUM 140 mmol/L (136-145)
[2017-06-23 09:34] LABS: PROTHROMBIN TIME 10.3 secs (10.8-13.4)
[2017-06-23 09:42] LABS: CREATININE 7.6 mg/dL (0.6-1.3); UREA NITROGEN, BLOOD 77 mg/dL (7-18)
[2017-06-23 10:16] VITALS: BP 107/55
--- NOTE | 2017-06-23 10:17 | NUR ---
Patient discharged with v/s stable. Written and verbal after care instructions given and explained. Patient alert, oriented and verbalized understanding of instructions. Ambulatory with to car. All questions addressed prior to discharge. ID band removed. Patient advised to follow up with PMD. Rx of ATIVAN given. Patient educated on indication of medication including possible reaction and side effects. Opportunity to ask questions provided and answered. PT INSTRUCTED TO GO TO DIALYSIS TODAY AT 6PM, APPT MADE. PT CALLED DIALYSIS CENTER AND CONFIRMED APPT. PT VERBALZIED UNDERSTANDING. VSS.
[2017-06-23 15:31] LABS: TOTAL BILIRUBIN 0.9 mg/dL (0.0-1.0)
== END 2017-06-23 10:17 | disposition home or self-care (01) ==
LOC: MED 07:20
DX: R53.1 Weakness (principal); I12.9 Hypertensive chronic kidney disease with stage 1 through stage 4 chronic kidney disease, or unspecified chronic kidney disease; E11.22 Type 2 diabetes mellitus with diabetic chronic kidney disease; N18.9 Chronic kidney disease, unspecified; Z79.899 Other long term (current) drug therapy
CPT/HCPCS: 36415; 71045; 80053; 82948; 83880; 84484; 85025; 85610; 85730; 93005; 99285; J8597; Q0092

== ENCOUNTER 2017-09-27 08:02 | Inpatient (IN) | payer OTHER ==
[~2017-09-27] VITALS: Ht 157.5 cm; Wt 56.7 kg
--- NOTE | 2017-09-27 08:02 | NUR ---
PT BIBA ALS TO BED 7
[2017-09-27 08:07] VITALS: BP 166/88
[2017-09-27] MEDS ORDERED: cefTRIAXone 1,000 MG in DEXT 5% MINI-BAG PLUS 50 ML IV ONE (08:10)
--- NOTE | 2017-09-27 08:10 | NUR ---
PT PRESENTS WITH ALOC BROUGHT IN BY EMS FROM HOME. EMS REPORTS PT HAS HX OF DM2 VERTIGO AND IS ON DIALYSIS MWF. [facility]CS 8 NO RESPONSE TO PAINFUL STIMULI. PT IS NONVERBAL AT THIS TIME. SHE HAS LOWER EXTREMITY TWTCHES. DIALYSIS ACCESS ON LEFT UPPER ARM. DENIES N/V/D; AAOX4 WITH EVEN AND STEADY GAIT; LUNGS CLEAR BL; HR EVEN AND REGULAR; NO FEVER, CP, SOB, OR COUGH AT THIS TIME. VSS; PATIENT POSITIONED FOR COMFORT; HOB ELEVATED; BEDRAILS UP X2; BED DOWN. ER MD MADE AWARE OF PT STATUS.
--- NOTE | 2017-09-27 08:12 | NUR ---
XRAY AT BEDSIDE
--- NOTE | 2017-09-27 08:29 | NUR ---
lab at bedside
[2017-09-27] MEDS ORDERED: cefTRIAXone 1,000 MG VIAL ONE (08:39)
--- NOTE | 2017-09-27 08:40 | NUR ---
GAVE PATIENT ROCEPHIN AFTER LAB DRAW SECOND BLOOD CULTURE. WILL CONTINUE TO MONITOR
[2017-09-27 08:43] LABS: BASOPHILS # (AUTO) 0.1 K/uL (0.00-0.22); BASOPHILS % (AUTO) 1.5 % (0.0-2.0); EOSINOPHILS # (AUTO) 0.2 K/uL (0-0.4); EOSINOPHILS % (AUTO) 5.5 % (0.0-4.0); HEMATOCRIT 40.5 % (36-48); HEMOGLOBIN 13.5 g/dL (12.0-16.0); LYMPHOCYTES # (AUTO) 1.5 K/uL (2.5-16.5); LYMPHOCYTES % (AUTO) 40.3 % (20.5-51.1); MEAN CORPUSCULAR HEMOGLOBIN 34 pg (27-31); MEAN CORPUSCULAR HGB CONC 33 g/dL (33-37); MEAN CORPUSCULAR VOLUME 100.7 fL (80-94); MONOCYTES # (AUTO) 0.3 K/uL (0.8-1.0); MONOCYTES % (AUTO) 8.2 % (1.7-9.3); NEUTROPHILS # (AUTO) 1.7 K/uL (1.8-7.7); NEUTROPHILS % (AUTO) 44.5 % (42.2-75.2); PLATELET COUNT (AUTO) 109 K/uL (140-450); RED BLOOD CELL COUNT(AUTO) 4.02 MIL/uL (4.20-5.40); RED CELL DISTRIBUTION WIDTH 14.3 % (11.6-13.7); WHITE BLOOD COUNT (AUTO) 3.8 K/uL (4.8-10.8)
--- NOTE | 2017-09-27 08:50 | NUR ---
PT IS FOLLOWING COMMANDS AND RESPINDING TO QUESTIONS. STILL NON VERBAL BUT WILL SHAKE HER HEAD IN RESPONSE. CAN NOT OPEN HER EYES.
[2017-09-27 09:08] LABS: BILIRUBIN,URINE NEGATIVE (NEGATIVE); COLOR,URINE YELLOW (YELLOW); LEUKOCYTE ESTERASE ,URINE NEGATIVE (NEGATIVE); NITRITE, URINE NEGATIVE (NEGATIVE); PH,URINE 8.5 (5.0-9.0); UGLUCOSE 1+ (NEGATIVE)
--- NOTE | 2017-09-27 09:10 | NUR ---
ROCEPHIN 1000MG FINISHED RUNNING. NO NEGATIVE RESPONSE NOTED.
[2017-09-27 09:15] LABS: APPEARANCE,URINE SLIGHTLY HAZY (CLEAR)
[2017-09-27 09:18] LABS: BLOOD, URINE 2+ (NEGATIVE); RBC,URINE 3-10 (FEW) /HPF (0-5)
[2017-09-27 09:19] LABS: WBC,URINE 0-5 (RARE) /HPF (0-5)
[2017-09-27 09:20] LABS: ANION GAP 13.6 (8-16); CARBON DIOXIDE 25.5 mmol/L (21-32); CHLORIDE 107 mmol/L (98-107); GLUCOSE 111 mg/dL (74-106); POTASSIUM 4.1 mmol/L (3.5-5.1); SODIUM SERUM 142 mmol/L (136-145); UREA NITROGEN, BLOOD 46 mg/dL (7-18)
[2017-09-27 09:25] LABS: CREATININE 7.4 mg/dL (0.6-1.3)
[2017-09-27 09:26] LABS: ALBUMIN 3.6 g/dL (3.4-5.0); ASPARTATE AMINOTRANSFERASE 21 U/L (15-37); TOTAL BILIRUBIN 0.8 mg/dL (0.0-1.0)
--- NOTE | 2017-09-27 09:40 | NUR ---
PT TAKEN TO CT IN [facility]
--- NOTE | 2017-09-27 09:41 | NUR ---
PATIENT TRANSPORTED TO CT
[2017-09-27 09:54] LABS: PROTHROMBIN TIME 9.3 secs (10.8-13.4)
--- NOTE | 2017-09-27 09:55 | NUR ---
PT RETURNED FROM CT
--- NOTE | 2017-09-27 10:10 | NUR ---
PATIENTS DAUGHTER JAYNA AT BEDSIDE. GIVEN A BREIF UPDATE. WILL CHECK BACK.
[2017-09-27] MEDS ORDERED: MORPHINE SULFATE 2 MG/ML SYR IVP PRN (10:35)
[2017-09-27] MEDS ORDERED: ACETAMINOPHEN 325 MG TAB PO PRN (10:35)
[2017-09-27] MEDS ORDERED: LORazepam 2 MG/ML VIAL IM/IVP PRN (10:35)
[2017-09-27] MEDS ORDERED: ONDANSETRON 4 MG/2 ML VIAL IM/IVP PRN (10:35)
[2017-09-27] MEDS ORDERED: ZOLPIDEM 5 MG TAB PO PRN (10:35)
[2017-09-27] MEDS ORDERED: DOCUSATE SODIUM 100 MG GELCAP PO PRN (10:35)
--- NOTE | 2017-09-27 10:55 | NUR ---
Patient will be admitted to care of DR CISSE . Admited to TELE. Will go to room 118 A. Belongings list completed. Report to ELVER JEROME.
--- NOTE | 2017-09-27 10:55 | NUR ---
RECEIVED BEDSIDE REPORT FROM ER NURSE. PATIENT IS UNABLE TO COMMUNICATE, UNABLE TO MOVE BUT WITHDRAWALS FROM PAIN. PATIENT ON TELE. FALL PRECAUTIONS IN PLACE. ASPIRATION PRECAUTIONS. IV ON R HAND 22G SALINE LOCK, CLEAN, DRY AND INTACT. MRSA DONE. NO B/P NO VENIPUNCTURE ON L ARM, L UA SHUNT. PATIENT ON HD. DAUGHTER AT BEDSIDE. R FA REDNESS AND WARM. BED IN LOW POSITION. CALL LIGHT WITHIN REACH. WILL CONTINUE TO MONITOR THE PATIENT
[2017-09-27 11:00] VITALS: BP 153/65
[2017-09-27] MEDS ORDERED: MECLIZINE 25 MG TAB PO PRN (11:05)
--- NOTE | 2017-09-27 11:27 | NUR ---
PT NOTE 1120 RECEIVED ORDER FOR PT JUAN M, CHART REVIEWED; PER RN Pt IS ALTERED AND DOES NOT OPEN EYES NOR TALK; WILL FOLLOW UP WITH Pt WHEN ABLE TO ACTIVELY PARTICIPATE WITH PT JUAN M, RN NOTIFIED.
[2017-09-27] MEDS ORDERED: DEXTROSE 50% 50 ML SYR IVP PRN (11:50)
[2017-09-27 12:18] LABS: MAGNESIUM 2.6 mg/dL (1.8-2.4); PHOSPHORUS 5.8 mg/dL (2.5-4.9); THYROID STIMULATING HORMONE 2.96 uIU/mL (0.34-3.74)
[2017-09-27] MEDS ORDERED: amLODIPine 5 MG TAB PO SCH ×2 (13:00→19:00)
[2017-09-27] MEDS ORDERED: ENALAPRILAT 2.5 MG/2 ML VIAL IVP PRN (13:00)
--- NOTE | 2017-09-27 13:00 | NUR ---
PATIENT IS SLEEPING. NO SIGNS OF DISTRESS ON ROOM AIR. BED IN LOW POSITION. CALL LIGHT WITHIN REACH. FAMILY AT BEDSIDE
[2017-09-27] MEDS ORDERED: DEXT 5% / NACL 0.45% 1,000 ML IV SCH (13:15)
[2017-09-27] MEDS: HYDROcodone/APAP 5/325 MG 1 TAB TAB PO PRN ×2 (14:10→18:20)
[2017-09-27] MEDS: CALCITRIOL 0.25 MCG CAPLF PO SCH ×2 (14:10→18:06)
--- NOTE | 2017-09-27 14:10 | NUR ---
PATIENT IS ABLE TO COMMUNICATE NOW. SHE IS ALERT AND ORIENTED X2. SHE FORGOT THE YEAR BUT AFTER ABOUT 2 MINS SHE SAID "OH IT IS 2018" ADMINISTERED PRN PAIN MEDS. PATIENT TOLERATED WELL. BED IN LOW POSITION. CALL LIGHT WITHIN REACH. WILL CONTINUE TO MONITOR THE PATIENT. SHE SAID SHE IS SO HUNGRY. TOLD DR HOUSTON HE SAID HE WOULD COME IN TO ASSESS THE PATIENT
--- NOTE | 2017-09-27 14:16 | NUR ---
WOUND CARE EVALUATION NOTE: REASON FOR EVALUATION: RIGHT FOREARM WOUND SKIN ASSESSMENT DONE WITH PRIMARY RN ON THIS 81 Y/O FEMALE PT ADMITTED FROM HOME TO [facility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
--- NOTE | 2017-09-27 14:30 | NUR ---
HD NURSE IS HERE. CONSENT IS SIGNED. HD ABOUT TO START. WILL CONTINUE TO MONITOR THE PATIENT.
--- NOTE | 2017-09-27 16:00 | NUR ---
PATIENT TOLERATING HD WELL. PATIENT GETTING ULTRASOUND DONE. NO COMPLAINTS AT THIS TIME. TOLERATING WELL. WILL CONTINUE TO MONITOR
[2017-09-27] MEDS: BLOOD GLUCOSE MONITORING 1 DEV DEV FS SCH ×2 (16:30→20:05)
--- NOTE | 2017-09-27 18:00 | NUR ---
HD IS DONE 500 OUTPUT DONE. PATIENT TOLERATED WELL. VITALS ARE WITHIN NORMAL BUT B/P ELEVATED 193/[address] HOUSTON IS AWARE.
[2017-09-27] MEDS: CLINDAMYCIN 300 MG in DEXTROSE 5% 50 ML IV SCH ×2 (18:07→23:34)
[2017-09-27] MEDS ORDERED: LACTULOSE 20 GM/30 ML UDC PO SCH (18:15)
--- NOTE | 2017-09-27 18:20 | NUR ---
ADMINISTERED PRN PAIN MEDS. PATIENT TOLERATED WELL. BED IN LOW POSITION. CALL LIGHT WITHIN REACH. DR SALINAS TO SEE THE PATIENT ABOUT CODE STATUS.
[2017-09-27 18:30] VITALS: BP 193/79
[2017-09-27] MEDS ORDERED: ASPIRIN 81 MG TAB.CHEW PO SCH (18:35)
[2017-09-27] MEDS ORDERED: LISINOPRIL 5 MG TAB PO SCH (18:55)
--- NOTE | 2017-09-27 19:30 | NUR ---
GAVE BEDSIDE REPORT TO THERMODYNAMICS TEACHER NURSE. ENDORSED PATIENT IN STABLE CONDITION
--- NOTE | 2017-09-27 19:31 | NUR ---
REPORT RECEIVED FROM AM NURSE AT BEDSIDE. PT IN STABLE CONDITION. AAOX3. BOARD UPDATED. INTRODUCE SELF TO PT AND FAMILY. IV SITE PATENT AND INTACT R HAND 20G. SKIN WARM, DRY, AND INTACT WITH NO OPEN WOUNDS. DIALYSIS PORT ON THE LEFT, NO BLOOD PRESSURES ON LEFT SIDE. BED LOCKED IN LOW POSITION. CALL MARIE WITHIN REACH. WILL CONTINUE TO MONITOR.
[2017-09-27 20:00] VITALS: BP 162/68
--- NOTE | 2017-09-27 20:05 | NUR ---
BS 141. NO INSULIN COVERAGE NEEDED.
[2017-09-27] MEDS ORDERED: PREGABALIN 25 MG CAP PO SCH (21:00)
--- NOTE | 2017-09-27 23:34 | NUR ---
VIOLA WARD. PT TOLERATED WELL.
[2017-09-28] VITALS (8 sets, daily range): BP systolic 122–160; BP diastolic 53–77
--- NOTE | 2017-09-28 01:40 | NUR ---
PT TO USE RESTROOM. STEADY GAIT WITH ASSISTANCE. PT STATES SHE FELT SLIGHTLY DIZZY AFTER GETTING UP BUT WAS ABLE TO AMBULATE TO THE RESTROOM.
--- NOTE | 2017-09-28 03:30 | NUR ---
PT SLEEPING COMFORTABLY BUT AROUSABLE. NO S/S OF DISTRESS NOTED. WILL CONTINUE TO MONITOR.
[2017-09-28] MEDS: CLINDAMYCIN 300 MG in DEXTROSE 5% 50 ML IV SCH ×3 (05:30→18:27)
--- NOTE | 2017-09-28 05:30 | NUR ---
VIOLA WARD. PT TOLERATING WELL. BS 76. NO INSULIN COVERAGE NEEDED.
[2017-09-28] MEDS: BLOOD GLUCOSE MONITORING 1 DEV DEV FS SCH ×4 (05:33→20:25)
--- NOTE | 2017-09-28 07:20 | NUR ---
REPORT GIVEN TO AM NURSE AT BEDSIDE. PT IN STABLE CONDITION.
--- NOTE | 2017-09-28 07:21 | NUR ---
RECEIVED REPORT FROM HEEL SEAM RUBBER NURSE. PATIENT LYING DOWN IN BED SLEEPING, AROUSABLE BY VOICE. FAMILY MEMBER AT BEDSIDE. NO DISTRESS NOTED. PAIN WITHIN TOLERABLE AT THIS TIME. AAOX4, CALM, COOPERATIVE, SKIN COLOR APPROPRIATE TO ETHNICITY, WARM TO TOUCH. HAS RIGHT FOREARM OPEN CELLULITIS WOUND, DRESSING IS DRY AND INTACT. LUNGS CTA ON ALL LOBES. HAS LEFT ARM AV SHUNT. IV SITE INTACT, PATENT, AND INFUSING IVF PER MD ORDERS. ABDOMEN SOFT, NON-DISTENDED. REVIEWED PLAN OF CARE WITH PATIENT. PATIENT VERBALIZED UNDERSTANDING. SAFETY MEASURES IN PLACE, CALL LIGHT WITHIN REACH. WILL CONTINUE TO MONITOR.
[2017-09-28 08:18] LABS: BASOPHILS % (AUTO) 0.9 % (0.0-2.0); EOSINOPHILS # (AUTO) 0.2 K/uL (0-0.4); EOSINOPHILS % (AUTO) 4.5 % (0.0-4.0); HEMATOCRIT 36.7 % (36-48); HEMOGLOBIN 12.2 g/dL (12.0-16.0); LYMPHOCYTES # (AUTO) 1.9 K/uL (2.5-16.5); LYMPHOCYTES % (AUTO) 38.1 % (20.5-51.1); MEAN CORPUSCULAR HEMOGLOBIN 34 pg (27-31); MEAN CORPUSCULAR HGB CONC 33 g/dL (33-37); MEAN CORPUSCULAR VOLUME 100.7 fL (80-94); MONOCYTES # (AUTO) 0.4 K/uL (0.8-1.0); MONOCYTES % (AUTO) 8.8 % (1.7-9.3); NEUTROPHILS # (AUTO) 2.4 K/uL (1.8-7.7); NEUTROPHILS % (AUTO) 47.7 % (42.2-75.2); PLATELET COUNT (AUTO) 114 K/uL (140-450); RED BLOOD CELL COUNT(AUTO) 3.65 MIL/uL (4.20-5.40); RED CELL DISTRIBUTION WIDTH 14.2 % (11.6-13.7)
--- NOTE | 2017-09-28 08:32 | NUR ---
PATIENT HAS BEEN SCREENED AND CATEGORIZED HIGH NUTRITION RISK. PATIENT WILL BE SEEN WITHIN 1-2 DAYS OF ADMISSION. 09/28/[address]
[2017-09-28 08:36] LABS: ANION GAP 9.8 (8-16); CARBON DIOXIDE 27.6 mmol/L (21-32); CHLORIDE 108 mmol/L (98-107); GLUCOSE 90 mg/dL (74-106); POTASSIUM 4.4 mmol/L (3.5-5.1); SODIUM SERUM 141 mmol/L (136-145); UREA NITROGEN, BLOOD 25 mg/dL (7-18)
[2017-09-28] MEDS: LISINOPRIL 5 MG TAB PO SCH (08:40)
[2017-09-28] MEDS: ASPIRIN 81 MG TAB.CHEW PO SCH (08:40)
[2017-09-28] MEDS: LORATADINE 10 MG TAB PO SCH (08:40)
[2017-09-28] MEDS: amLODIPine 5 MG TAB PO SCH (08:40)
[2017-09-28] MEDS: CALCITRIOL 0.25 MCG CAPLF PO SCH (08:41)
[2017-09-28] MEDS: HYDROcodone/APAP 5/325 MG 1 TAB TAB PO PRN (08:41)
[2017-09-28 08:51] LABS: CREATININE 4.7 mg/dL (0.6-1.3)
[2017-09-28] MEDS ORDERED: ATORVASTATIN 20 MG TAB PO SCH (09:00)
[2017-09-28] MEDS ORDERED: LISINOPRIL 10 MG TAB PO SCH (09:00)
[2017-09-28] MEDS ORDERED: amLODIPine 5 MG TAB PO SCH ×3 (09:00)
--- NOTE | 2017-09-28 09:07 | NUR ---
PATIENT LYING IN BED TALKING WITH FAMILY MEMBER AT BEDSIDE. NO DISTRESS NOTED. DENIES ANY PAIN. SCHEDULED MEDICATIONS DUE GIVEN. COLACE GIVEN PER PATIENT REPORTS NOT HAVING A BM YET. SAFETY MEASURES IN PLACE, CALL LIGHT WITHIN REACH. WILL CONTINUE TO MONITOR.
[2017-09-28 09:10] LABS: T4 (THYROXINE) 7.8 ug/dL (4.5-12.0)
[2017-09-28 09:12] LABS: MAGNESIUM 1.9 mg/dL (1.8-2.4); PHOSPHORUS 5.4 mg/dL (2.5-4.9)
--- NOTE | 2017-09-28 11:00 | NUR ---
PATIENT SITTING IN BED WITH FAMILY MEMBERS AT BEDSIDE. PATIENT GOING TO TAKE A SHOWER WITH FAMILY FOR ASSISTANCE. NO DISTRESS NOTED. CONDITION UNCHANGED. WILL CONTINUE TO MONITOR .
--- NOTE | 2017-09-28 12:12 | NUR ---
09/28/17 RD INITIAL ASSESSMENT COMPLETED PLEASE REFER TO NUTRITION ASSESSMENT UNDER CARE ACTIVITY FOR ESTIMATED NUTRITIONAL NEEDS. 1. CONTINUE CCHO 60 GM AND RENAL DIET TOLERATED 2. PROVIDED NUTRITION EDUCATION ON RENAL DIET 3. RD TO FOLLOW-UP 5-7 DAYS, LOW RISK BUD MIRELES, BK
[2017-09-28 12:26] LABS: FOLIC ACID > 20.00 ng/mL (>3.0)
--- NOTE | 2017-09-28 13:09 | NUR ---
PATIENT SITTING DOWN AT BEDSIDE CHAIR WITH LUNCH TRAY IN FRONT. NO DISTRESS NOTED. DENIES ANY PAIN. SCHEDULED MEDICATION DUE GIVEN. SAFETY MEASURES IN PLACE, CALL LIGHT WITHIN REACH. WILL CONTINUE TO MONITOR.
[2017-09-28 14:25] LABS: CHOL/HDL RATIO 2.5 (1-4.5)
--- NOTE | 2017-09-28 15:30 | NUR ---
PATIENT LYING DOWN IN BED SLEEPING, AROUSABLE BY VOICE. NO DISTRESS NOTED. CONDITION UNCHANGED. WILL CONTINUE TO MONITOR.
--- NOTE | 2017-09-28 16:49 | NUR ---
SPOKE WITH HOSEA CAMP FROM DIALYSIS AND NOTIFIED HER REGARDING HD ORDER FOR TOMORROW. J LUIS-QUEENIE ASSIGNED MADE AWARE.
--- NOTE | 2017-09-28 18:31 | NUR ---
PATIENT SITTING IN BED TALKING WITH FAMILY MEMBERS AT BEDSIDE. NO DISTRESS NOTED. DENIES ANY PAIN AT THIS TIME. SCHEDULED MEDICATIONS DUE GIVEN. SAFETY MEASURES IN PLACE, CALL LIGHT WITHIN REACH. WILL CONTINUE TO MONITOR.
--- NOTE | 2017-09-28 19:40 | NUR ---
GAVE REPORT TO SHINGLE GRADER NURSE FOR CONTINUITY OF CARE. PATIENT IN STABLE CONDITION.
--- NOTE | 2017-09-28 19:45 | NUR ---
RECEIVED PT FROM J LUIS JEROME PT INDONESIAN SPEAKER AAOX4 RELTIVES AT BED SIDE AV SHUNT ON LEFT ARM HL ON RT FA PATENT ON TELEMETRY SR INITIAL ASSESSMENT DONE
[2017-09-28] MEDS: INSULIN LISPRO SLIDING SCALE 100 UNITS/ML VIAL SUBQ PRN (20:25)
--- NOTE | 2017-09-28 21:30 | NUR ---
BLOOD SUGAR TEST 160 CVERAGE WITH 2 UNITS SUBQ HUMALOG ON RT ARM DENIES ANY PAIN OR DISCOMFORT
--- NOTE | 2017-09-28 22:15 | NUR ---
DR GANN IS HERE AND SEE THE PT SHE WANT TO REPEAT ORTHOSTATIC BP TOMORROW MORNING BP SITTING STANDING AND SUPINE EACH BP WAIT FOR 5 MINUTES APART
[2017-09-29] VITALS: BP 122/54
[2017-09-29] MEDS: CLINDAMYCIN 300 MG in DEXTROSE 5% 50 ML IV SCH ×3 (00:50→13:02)
--- NOTE | 2017-09-29 01:38 | NUR ---
PT SLEEPING WELL ON TELE SR BBB NOT DISTRESS NOTED
[2017-09-29 04:00] VITALS: BP 136/60
--- NOTE | 2017-09-29 04:00 | NUR ---
SPONGE BATH GIVEN LINEN CHANGED REPOSITIONED RESTING ON BED NOT DISTRESS NOTED
[2017-09-29] MEDS: BLOOD GLUCOSE MONITORING 1 DEV DEV FS SCH ×2 (05:32→11:30)
--- NOTE | 2017-09-29 05:34 | NUR ---
BLOOD SUGAR TEST 75 PT VERBALIZED TO FEEL BETTER , PT WILL HAVE DIALYSIS TODAY
--- NOTE | 2017-09-29 06:22 | NUR ---
PT RESTING ON BED DENIES ANY PAIN OR DISCOMFORT REMAIN STALE ON TELEMETRY SR
--- NOTE | 2017-09-29 07:20 | NUR ---
RECEIVED REPORT FROM RELAY CHECKER RN AT BEDSIDE. PT IN STABLE CONDITION. AAO X4. LUNGS CTA. NO COMPLAINTS OF PAIN OR DISCOMFORT. DRESSING OVER RIGHT FA CELLULITIS. PT IS AMBULATORY. LEFT AV SHUNT, HD ON //, DUE FOR HD TODAY. IV SITE PATENT AND ASYMPTOMATIC, NO FLUIDS ORDERED. ALL SAFETY PRECAUTIONS IN PLACE, WILL CONTINUE TO MONITOR.
[2017-09-29 07:42] LABS: BASOPHILS % (AUTO) 0.7 % (0.0-2.0); EOSINOPHILS # (AUTO) 0.2 K/uL (0-0.4); EOSINOPHILS % (AUTO) 2.8 % (0.0-4.0); HEMATOCRIT 40.1 % (36-48); HEMOGLOBIN 13.5 g/dL (12.0-16.0); LYMPHOCYTES # (AUTO) 2.3 K/uL (2.5-16.5); LYMPHOCYTES % (AUTO) 40.4 % (20.5-51.1); MEAN CORPUSCULAR HEMOGLOBIN 34 pg (27-31); MEAN CORPUSCULAR HGB CONC 34 g/dL (33-37); MEAN CORPUSCULAR VOLUME 100.1 fL (80-94); MONOCYTES # (AUTO) 0.4 K/uL (0.8-1.0); MONOCYTES % (AUTO) 6.4 % (1.7-9.3); NEUTROPHILS # (AUTO) 2.9 K/uL (1.8-7.7); NEUTROPHILS % (AUTO) 49.7 % (42.2-75.2); PLATELET COUNT (AUTO) 130 K/uL (140-450); RED BLOOD CELL COUNT(AUTO) 4.01 MIL/uL (4.20-5.40); RED CELL DISTRIBUTION WIDTH 13.9 % (11.6-13.7); WHITE BLOOD COUNT (AUTO) 5.8 K/uL (4.8-10.8)
[2017-09-29 08:00] VITALS: BP 140/56
[2017-09-29 08:07] LABS: ANION GAP 16.4 (8-16); CARBON DIOXIDE 24.5 mmol/L (21-32); CHLORIDE 103 mmol/L (98-107); GLUCOSE 87 mg/dL (74-106); POTASSIUM 3.9 mmol/L (3.5-5.1); SODIUM SERUM 140 mmol/L (136-145); UREA NITROGEN, BLOOD 41 mg/dL (7-18)
[2017-09-29 08:18] LABS: MAGNESIUM 2.1 mg/dL (1.8-2.4); PHOSPHORUS 6.8 mg/dL (2.5-4.9)
[2017-09-29 08:42] LABS: CREATININE 6.4 mg/dL (0.6-1.3)
[2017-09-29] MEDS: LORATADINE 10 MG TAB PO SCH (08:54)
[2017-09-29] MEDS: ASPIRIN 81 MG TAB.CHEW PO SCH (08:54)
[2017-09-29] MEDS: amLODIPine 5 MG TAB PO SCH (08:55)
[2017-09-29] MEDS: LISINOPRIL 5 MG TAB PO SCH (08:55)
[2017-09-29] MEDS ORDERED: CALCITRIOL 0.25 MCG CAPLF PO SCH (09:00)
--- NOTE | 2017-09-29 09:16 | NUR ---
FUNCTIONAL CONSULTANT HERE TO START HD. BP MEDS WITHHELD.
[2017-09-29] MEDS ORDERED: AMLO5TAB4 PO (09:19)
[2017-09-29] MEDS ORDERED: LISI-424 PO (09:19)
[2017-09-29] MEDS ORDERED: ROC.25 PO (09:19)
--- NOTE | 2017-09-29 11:30 | NUR ---
BLOOD GLUCOSE IS 158. HUMALOG WILL BE GIVEN PER SLIDING SCALE.
--- NOTE | 2017-09-29 12:00 | NUR ---
PT NOTES CHART REVIEWED. CLEARED FOR TX BY RN, HOWEVER PATIENT CURRENTLY IN DIALYSIS WILL HOLD P.T. TX AT THIS TIME & FOLLOW UP TOMORROW. DISCUSSED W/ PRIMARY PHYSICAL THERAPIST Addendum: 09/29/17 at 1533 by Vida Lam PT PHYSICAL THERAPY CO-SIGN The Physical Therapy Progress Notes documented by Script Coordinator have been reviewed. Reviewed/Co-Signed by: Vida Lam, PT Documentation Done by: ARMANI ALVAREZ, BREAKER HAND
[2017-09-29] MEDS: INSULIN LISPRO SLIDING SCALE 100 UNITS/ML VIAL SUBQ PRN (13:23)
--- NOTE | 2017-09-29 13:30 | NUR ---
DIALYSIS COMPLETE. VITALS STABLE. PER DIALYSIS NURSE, 2.5 LITERS REMOVED.
--- NOTE | 2017-09-29 14:50 | NUR ---
DISCHARGE PAPERWORK, INCLUDING INSTRUCTIONS TO FOLLOW UP WITH PCP AND NEW PRESCRIPTIONS, GIVEN TO PATIENT. PATIENT PREFERS FAMILY MEMBER AT BEDSIDE TO TRANSLATE. DEMONSTRATED WOUND DRESSING CHANGE TO PATIENT AND FAMILY MEMBER FOR RIGHT FA CELLULITIS WOUND. PHOTOS TAKEN. DRESSING/SUPPLIES GIVEN TO PT. PT AND FAMILY MEMBER VERBALIZED COMPLETE UNDERSTANDING OF ALL DISCHARGE TEACHING. ID BANDS REMOVED. IV CANNULA REMOVED WITH MINIMAL BLOOD LOSS AND LUMEN COMPLETELY INTACT. PT WHEELED OUT USING WHEELCHAIR. WILL GO HOME WITH FAMILY MEMBER VIA PRIVATE VEHICLE.
== END 2017-09-29 14:50 | disposition home or self-care (01) | DRG 871 ==
LOC: MED 08:02 → MTU 10:31
PROVIDERS: ADMIT General Practice; ATTEND General Practice
PROC: 5A1D70Z Performance of Urinary Filtration, Intermittent, Less than 6 Hours Per Day (ICD-10-PCS; principal; 2017-09-27)
PROC: 5A1D70Z Performance of Urinary Filtration, Intermittent, Less than 6 Hours Per Day (ICD-10-PCS; 2017-09-29)
DX: A41.9 Sepsis, unspecified organism (principal); G93.41 Metabolic encephalopathy; I50.43 Acute on chronic combined systolic (congestive) and diastolic (congestive) heart failure; N18.6 End stage renal disease; L03.113 Cellulitis of right upper limb; I13.2 Hypertensive heart and chronic kidney disease with heart failure and with stage 5 chronic kidney disease, or end stage renal disease; E86.0 Dehydration; K72.90 Hepatic failure, unspecified without coma; E11.22 Type 2 diabetes mellitus with diabetic chronic kidney disease; E78.5 Hyperlipidemia, unspecified; I34.0 Nonrheumatic mitral (valve) insufficiency; I07.1 Rheumatic tricuspid insufficiency; I37.1 Nonrheumatic pulmonary valve insufficiency; Z96.1 Presence of intraocular lens; Z66 Do not resuscitate; E11.51 Type 2 diabetes mellitus with diabetic peripheral angiopathy without gangrene; E83.39 Other disorders of phosphorus metabolism; E87.8 Other disorders of electrolyte and fluid balance, not elsewhere classified; Z99.2 Dependence on renal dialysis; Z98.41 Cataract extraction status, right eye; Z98.42 Cataract extraction status, left eye; Z98.51 Tubal ligation status; Z79.82 Long term (current) use of aspirin; Z79.899 Other long term (current) drug therapy; Z83.3 Family history of diabetes mellitus; Z82.49 Family history of ischemic heart disease and other diseases of the circulatory system
CPT/HCPCS: 36415; 70450; 71045; 80048; 80053; 81001; 82140; 82550; 82607; 82746; 82948; 83036; 83605; 83690; 83735; 83880; 84100; 84134; 84436; 84443; 84484; 85025; 85610; 85730; 87040; 87081; 87086; 93005; 93880; 93925; 93970; 96365; 97110; 97535; 99285; C1758; J0696; J1815; J3490; J7060; Q0092

== ENCOUNTER 2017-12-13 14:16 | Emergency (ER) | payer OTHER ==
[~2017-12-13] VITALS: Ht 152.4 cm; Wt 44.5 kg
[~2017-12-13 14:16] MED LIST changes: -AMLO10TA PO; +AMLO5TAB4 PO; -ATOR20TA PO; -CALC0.5S6 PO; +LISI-424 PO; -LISI10TA11 PO; -LYR75 PO; -NITR100C7 PO; +ROC.25 PO
[2017-12-13 14:25] VITALS: BP 124/76
--- NOTE | 2017-12-13 14:32 | NUR ---
PATIENT TO BED 6 AT THIS TIME.
--- NOTE | 2017-12-13 14:40 | NUR ---
PATIENT UNABLE TO PRODUCE URINE AT THIS TIME. GIVEN WATER CUP.
--- NOTE | 2017-12-13 14:44 | NUR ---
LAB AT BEDSIDE
--- NOTE | 2017-12-13 14:46 | NUR ---
PATIENT PRESENTS TO ED WITH THE CHIEF C/O GENERALIZED WEAKNESS THAT STARTED TODAY AFTER HAVING DIALYSIS. DENIES N/V/D; SKIN IS PINK/WARM/DRY; AAOX4 WITH EVEN AND STEADY GAIT; LUNGS CLEAR BL; HR EVEN AND REGULAR. DIALYSIS SHUNT NOTED ON TONIA. NO BLEEDING AT SHUNT SITE. COVERED WITH DRESSING. PT DENIES ANY FEVER, CP, SOB, OR COUGH AT THIS TIME; PATIENT STATES BACK PAIN OF 7/10 AT THIS TIME; ELEVATED SBP; 157 ON MONITOR; PATIENT POSITIONED FOR COMFORT; HOB ELEVATED; BEDRAILS UP X2; BED DOWN. ER MD MADE AWARE OF PT STATUS.
[2017-12-13 15:07] LABS: BASOPHILS # (AUTO) 0.1 K/uL (0.00-0.22); EOSINOPHILS # (AUTO) 0.1 K/uL (0-0.4); EOSINOPHILS % (AUTO) 1.6 % (0.0-4.0); HEMOGLOBIN 13.4 g/dL (12.0-16.0); LYMPHOCYTES # (AUTO) 1.7 K/uL (2.5-16.5); LYMPHOCYTES % (AUTO) 32.7 % (20.5-51.1); MEAN CORPUSCULAR HEMOGLOBIN 33 pg (27-31); MEAN CORPUSCULAR HGB CONC 33 g/dL (33-37); MEAN CORPUSCULAR VOLUME 99.5 fL (80-94); MONOCYTES # (AUTO) 0.6 K/uL (0.8-1.0); MONOCYTES % (AUTO) 11.7 % (1.7-9.3); NEUTROPHILS # (AUTO) 2.8 K/uL (1.8-7.7); PLATELET COUNT (AUTO) 157 K/uL (140-450); RED BLOOD CELL COUNT(AUTO) 4.02 MIL/uL (4.20-5.40); RED CELL DISTRIBUTION WIDTH 15.1 % (11.6-13.7); WHITE BLOOD COUNT (AUTO) 5.3 K/uL (4.8-10.8)
--- NOTE | 2017-12-13 15:08 | NUR ---
CHEST X-RAY DONE.
[2017-12-13 15:28] LABS: PROTHROMBIN TIME 9.6 secs (10.8-13.4)
[2017-12-13 15:31] LABS: ANION GAP 11.1 (8-16); CARBON DIOXIDE 31.9 mmol/L (21-32); CHLORIDE 98 mmol/L (98-107); CREATININE 3.9 mg/dL (0.6-1.3); GLUCOSE 165 mg/dL (74-106); SODIUM SERUM 137 mmol/L (136-145); UREA NITROGEN, BLOOD 15 mg/dL (7-18)
[2017-12-13 15:36] LABS: ALBUMIN 3.7 g/dL (3.4-5.0); ASPARTATE AMINOTRANSFERASE 17 U/L (15-37)
[2017-12-13 16:44] LABS: APPEARANCE,URINE CLEAR (CLEAR); COLOR,URINE YELLOW (YELLOW); UGLUCOSE 1+ (NEGATIVE)
[2017-12-13 16:45] LABS: BILIRUBIN,URINE NEGATIVE (NEGATIVE); BLOOD, URINE TRACE (NEGATIVE); LEUKOCYTE ESTERASE ,URINE NEGATIVE (NEGATIVE); NITRITE, URINE NEGATIVE (NEGATIVE)
[2017-12-13 16:54] LABS: RBC,URINE 0-5 (RARE) /HPF (0-5); WBC,URINE 0-5 (RARE) /HPF (0-5)
--- NOTE | 2017-12-13 17:38 | NUR ---
Dr. Lebron at bedside evaluating pt.
[2017-12-13] MEDS ORDERED: KETOROLAC 30 MG/ML VIAL IVP ONE (17:45)
[2017-12-13 18:18] VITALS: BP 119/77
== END 2017-12-13 18:16 | disposition home or self-care (01) ==
LOC: MED 14:16
DX: R42 Dizziness and giddiness (principal); M54.6 Pain in thoracic spine; R53.1 Weakness; E11.9 Type 2 diabetes mellitus without complications; I10 Essential (primary) hypertension; Z79.82 Long term (current) use of aspirin; Z79.899 Other long term (current) drug therapy; Z79.84 Long term (current) use of oral hypoglycemic drugs
CPT/HCPCS: 36415; 71045; 80053; 81001; 82550; 83605; 83880; 84484; 85025; 85610; 85730; 87040; 87086; 93005; 96374; 99285; J1885; Q0092

== ENCOUNTER 2018-04-13 08:05 | Inpatient (IN) | payer OTHER ==
[~2018-04-13] VITALS: Ht 152.4 cm; Wt 43.5 kg
[~2018-04-13 08:05] MED LIST changes: -AMLO5TAB4 PO; +AMLO5TAB6 PO; +ASPI-1718 PO; -ASPI81CT89 PO
--- NOTE | 2018-04-13 08:15 | NUR ---
PT AMBULATES TO BED 11
[2018-04-13 08:16] VITALS: BP 178/79
--- NOTE | 2018-04-13 08:33 | NUR ---
AAOX 4 82 YR OLD FREN[place] SPEAKING FEMALE BIB SELF WITH C/O MID ABDOMINAL PAIN, RT LOWER BACK PAIN WITH DIARRHEA AND DRY NON PRODUCTIVE X 2 WKS. DENIES DIZZINESS, NAUSEA OR VOMITING - BS BL CLEAR, NO ACCESSORY MUSCLE, SPEAKS FULL SENTENCES, EQUAL BL STRENGTH, AMBULATING WITHOUT DIFFICULTY HX; DM, HTN RX; LISINPRIL
--- NOTE | 2018-04-13 08:59 | NUR ---
PT UNABLE TO PROVIDE URINE OR STOOL SAMPLE AT THIS TIME. DR WALSH NOTIFIED
--- NOTE | 2018-04-13 09:26 | NUR ---
Patient being evaluated by physician at bedside.
[2018-04-13] MEDS ORDERED: NACL 0.9% 1,000 ML IV ONE (09:33)
[2018-04-13] MEDS ORDERED: GLYCERIN ADULT 1 SUPP RC ONE (09:35)
[2018-04-13] MEDS ORDERED: SODIUM PHOSPHATE 118 ML ENEM RC ONE (09:35)
[2018-04-13 10:04] LABS: BASOPHILS # (AUTO) 0.1 K/uL (0.00-0.22); EOSINOPHILS # (AUTO) 0.2 K/uL (0-0.4); EOSINOPHILS % (AUTO) 3.2 % (0.0-4.0); HEMATOCRIT 29.4 % (36-48); LYMPHOCYTES # (AUTO) 1.4 K/uL (2.5-16.5); LYMPHOCYTES % (AUTO) 22.3 % (20.5-51.1); MEAN CORPUSCULAR HEMOGLOBIN 34 pg (27-31); MEAN CORPUSCULAR HGB CONC 34 g/dL (33-37); MEAN CORPUSCULAR VOLUME 101.1 fL (80-94); MONOCYTES # (AUTO) 0.6 K/uL (0.8-1.0); MONOCYTES % (AUTO) 9.1 % (1.7-9.3); NEUTROPHILS % (AUTO) 64.4 % (42.2-75.2); PLATELET COUNT (AUTO) 183 K/uL (140-450); RED BLOOD CELL COUNT(AUTO) 2.91 MIL/uL (4.20-5.40); WHITE BLOOD COUNT (AUTO) 6.3 K/uL (4.8-10.8)
--- NOTE | 2018-04-13 10:09 | NUR ---
PT RETURNED FROM CT
[2018-04-13 10:18] LABS: ANION GAP 11.5 (8-16); CARBON DIOXIDE 31.9 mmol/L (21-32); CHLORIDE 99 mmol/L (98-107); GLUCOSE 117 mg/dL (74-106); POTASSIUM 3.4 mmol/L (3.5-5.1); SODIUM SERUM 139 mmol/L (136-145); UREA NITROGEN, BLOOD 24 mg/dL (7-18)
[2018-04-13 10:20] LABS: CREATININE 7.6 mg/dL (0.6-1.3)
[2018-04-13] MEDS ORDERED: SEVE800T6 PO (10:20)
[2018-04-13] MEDS ORDERED: SIMV20TA1 PO (10:22)
[2018-04-13 10:23] LABS: ALBUMIN 3.2 g/dL (3.4-5.0); AMYLASE 87 U/L (25-115); ASPARTATE AMINOTRANSFERASE 20 U/L (15-37); LIPASE 294 U/L (73-393); TOTAL BILIRUBIN 0.8 mg/dL (0.0-1.0)
[2018-04-13] MEDS ORDERED: MULT-1469 PO (10:24)
[2018-04-13] MEDS ORDERED: NACL 0.9% 1,000 ML IV SCH (10:53)
[2018-04-13] MEDS ORDERED: HYDROcodone/APAP 5/325 MG 1 TAB TAB PO PRN (10:55)
[2018-04-13] MEDS ORDERED: ONDANSETRON 4 MG/2 ML VIAL IM/IVP PRN (10:55)
[2018-04-13] MEDS ORDERED: DOCUSATE SODIUM 100 MG GELCAP PO PRN (10:55)
[2018-04-13] MEDS ORDERED: DEXTROSE 50% 50 ML SYR IVP PRN (11:10)
--- NOTE | 2018-04-13 11:11 | NUR ---
PT ABLE TO PROVIDE STOOL SAMPLE, COLLECTED AND SEND TO THE LAB
[2018-04-13] MEDS: BLOOD GLUCOSE MONITORING 1 DEV DEV FS SCH ×3 (11:30→20:57)
[2018-04-13 11:53] LABS: MAGNESIUM 2.3 mg/dL (1.8-2.4)
[2018-04-13 11:53] LABS: BILIRUBIN,URINE NEGATIVE (NEGATIVE); BLOOD, URINE 2+ (NEGATIVE); COLOR,URINE YELLOW (YELLOW); LEUKOCYTE ESTERASE ,URINE TRACE (NEGATIVE); NITRITE, URINE NEGATIVE (NEGATIVE); PH,URINE >=9.0 (5.0-9.0); UGLUCOSE 1+ (NEGATIVE)
[2018-04-13 11:54] LABS: PHOSPHORUS 4.6 mg/dL (2.5-4.9); THYROID STIMULATING HORMONE 2.76 uIU/mL (0.34-3.74)
[2018-04-13 12:00] VITALS: BP 181/74
--- NOTE | 2018-04-13 12:00 | NUR ---
RECEIVED BEDSIDE REPORT FROM ER NURSE. PATIENT AAOX4. ON ROOM AIR, NO DISTRESS NOTED. SKIN INTACT. PATIENT AMBULATORY. ON TELE MONITOR AND STANDARD PRECAUTIONS IN PLACE. IV ON R HAND 24 G INFUSING NS AT 20. IV ASYMPTOMATIC, PATENT AND INTACT. LA V FISTULA IN PLACE. SIGNS POSTED. BED IN LOW POSITION, CALL LIGHT WITHIN REACH, SIDE RAILS X2 UP. WILL CONTINUE TO MONITOR.
--- NOTE | 2018-04-13 12:00 | NUR ---
Patient will be admitted to care of Dr Galvez. Admited to tele room 112a. Belongings list completed. Report to QUEENIE Nguyễn
[2018-04-13 12:51] LABS: APPEARANCE,URINE SLIGHTLY HAZY (CLEAR)
[2018-04-13 12:54] LABS: WBC,URINE 0-5 /HPF (0-5)
[2018-04-13] MEDS: MORPHINE SULFATE 2 MG/ML SYR IVP PRN ×2 (14:17→20:58)
--- NOTE | 2018-04-13 14:30 | NUR ---
ADMINISTERED MORPHINE PRN FOR LOW BACK PAIN 8/10 PAIN. PATIENT TOLERATED WELL. WILL CONTINUE TO MONITOR.
[2018-04-13 16:00] VITALS: BP 163/79
[2018-04-13] MEDS ORDERED: BOWEL EVACUANT DRINK 4,000 ML PDS PO SCH (17:00)
[2018-04-13] MEDS ORDERED: MECLIZINE 25 MG TAB PO PRN (17:15)
[2018-04-13] MEDS ORDERED: hydrALAZINE 20 MG/ML VIAL IVP PRN (17:15)
[2018-04-13] MEDS ORDERED: amLODIPine 5 MG TAB PO SCH (17:30)
[2018-04-13] MEDS: SENNA 8.6 MG TAB PO SCH ×2 (18:12→20:57)
[2018-04-13] MEDS: LACTULOSE 20 GM/30 ML UDC PO SCH ×2 (18:13→20:57)
[2018-04-13] MEDS ORDERED: CYCLOBENZAPRINE 10 MG TAB PO SCH (18:30)
--- NOTE | 2018-04-13 18:51 | NUR ---
FAMILY AT BEDSIDE. ADMINISTERED SCHEDULED MEDS. TOLERATED WELL. WILL CONTINUE TO MONITOR.
[2018-04-13 18:54] LABS: PROTHROMBIN TIME 9.8 secs (10.8-13.4)
--- NOTE | 2018-04-13 19:15 | NUR ---
GAVE REPORT TO ARCHITECT INTERN NURSE. PATIENT ENDORSED IN STABLE CONDITION.
--- NOTE | 2018-04-13 19:16 | NUR ---
RECEIVED REPORT FROM DAY SHIFT NURSE JUSTA-RN AT BEDSIDE. PT AOX4-BERMUDIAN SPEAKING WITH FAMILY AT BEDSIDE. PT ON ROOM AIR WITH RIGHT HAND #24G RUNNING NS @20ML AND LEFT ARM FISTULA- DIALYSIS MWF. PT IS AMBULATORY. DISCUSSED PLAN OF CARE AND PT VERBALIZED UNDERSTANDING. NO S/S OF RESPIRATORY DISTRESS OR DISCOMFORT NOTED AT THIS TIME. BED IN LOWEST POSITION, BED BREAKS ON, BOTH SIDE RAILS UP AND FALL PRECAUTIONS IN PLACE. BEDSIDE TABLE, COMMODE AND CALL LIGHT ARE WITHIN REACH. WILL CONTINUE TO MONITOR.
[2018-04-13 20:00] VITALS: BP 191/78
--- NOTE | 2018-04-13 20:00 | NUR ---
VITAL SIGNS TAKEN AND TOLERATED WELL. BLOOD GLUCOSE 95- NO INSULIN COVERAGE NEEDED. ENCOURAGED TO DRINK JUICE AND COMPLETE GOLYTELE. NO S/S OF RESPIRATORY DISTRESS OR DISCOMFORT NOTED AT THIS TIME. WILL CONTINUE TO MONITOR.
--- NOTE | 2018-04-13 20:57 | NUR ---
SCHEDULED MEDICATION GIVEN AND TOLERATED WELL. NO S/S OF RESPIRATORY DISTRESS OR DISCOMFORT NOTED AT THIS TIME. WILL CONTINUE TO MONITOR.
[2018-04-13] MEDS ORDERED: MAGNESIUM CITRATE 300 ML BTL PO SCH (22:00)
--- NOTE | 2018-04-13 22:55 | NUR ---
DIALYSIS NURSE CLARY CALLED TO INFORM THAT HIS ETA WILL BE [phone] 04/14/2018. CHARGE NURSE LUZ IS AWARE.
--- NOTE | 2018-04-13 23:23 | NUR ---
SCHEDULED MEDICATION GIVEN AND TOLERATED WELL. NO S/S OF RESPIRATORY DISTRESS OR DISCOMFORT NOTED AT THIS TIME. WILL CONTINUE TO MONITOR.
[2018-04-14] VITALS: BP 191/78
--- NOTE | 2018-04-14 | NUR ---
VITAL SIGNS TAKEN AND TOLERATED WELL. NO S/S OF RESPIRATORY DISTRESS OR DISCOMFORT NOTED AT THIS TIME. WILL CONTINUE TO MONITOR.
--- NOTE | 2018-04-14 00:59 | NUR ---
DIALYSIS HAS BEGUN WITH DIALYSIS NURSE JUMANA -QUEENIE AT BEDSIDE. PT TOLERATING WELL. NO S/S OF RESPIRATORY DISTRESS OR DISCOMFORT NOTED AT THIS TIME. WILL CONTINUE TO MONITOR.
--- NOTE | 2018-04-14 02:00 | NUR ---
PT SLEEPING IN BED. DIALYSIS CONTINUES. NO S/S OF RESPIRATORY DISTRESS OR DISCOMFORT NOTED AT THIS TIME. WILL CONTINUE TO MONITOR.
[2018-04-14 04:00] VITALS: BP 159/73
--- NOTE | 2018-04-14 04:00 | NUR ---
VITAL SIGNS TAKEN AND TOLERATED WELL. DIALYSIS COMPLETED. PT SLEEPING IN BED. NO S/S OF RESPIRATORY DISTRESS OR DISCOMFORT NOTED AT THIS TIME. WILL CONTINUE TO MONITOR.
--- NOTE | 2018-04-14 06:00 | NUR ---
BLOOD GLUCOSE 75- NO INSULIN COVERAGE NEEDED. TOLERATED WELL. NO S/S OF RESPIRATORY DISTRESS OR DISCOMFORT NOTED AT THIS TIME. WILL CONTINUE TO MONITOR.
[2018-04-14] MEDS: BLOOD GLUCOSE MONITORING 1 DEV DEV FS SCH ×4 (06:04→20:32)
[2018-04-14 06:21] LABS: T4 (THYROXINE) 9.8 ug/dL (4.5-12.0)
--- NOTE | 2018-04-14 06:21 | NUR ---
SPOKE TO DR. MIKHAIL BERNARD ABOUT PT NOT COMPLETING MAG CITRATE DURING DIALYSIS PT FELL ASLEEP. DR. BERNARD ORDERED TO ENCOURAGE PT TO COMPLETE MAG CITRATE AND MAKE DR. JAMA AWARE.
--- NOTE | 2018-04-14 07:27 | NUR ---
ENDORSED PT CARE TO DAY SHIFT NURSE ANALISA FOR CONTINUITY OF CARE.
--- NOTE | 2018-04-14 07:28 | NUR ---
RECEIVED REPORT AT BEDSIDE FROM GANG HEAD SAW OPERATOR NURSE. PT IS SLEEPING. PT HAS COMPLETED THE BOWEL PREP AND IS CLEAR. NOT ON THE BIG BOARD OF YET. CONSENT IN CHART. IV ON R HAND 24G NS AT 20ML/HR INFUSING. L AC AVSHUNT PRESENT. PER NIGHTSHIFT RN, PT HAD HD YESTERDAY AND HAD 2L OUT. WILL CONTINUE TO MONITOR PT.
[2018-04-14 07:48] LABS: BASOPHILS # (AUTO) 0.1 K/uL (0.00-0.22); BASOPHILS % (AUTO) 0.9 % (0.0-2.0); EOSINOPHILS # (AUTO) 0.1 K/uL (0-0.4); EOSINOPHILS % (AUTO) 1.9 % (0.0-4.0); HEMATOCRIT 27.1 % (36-48); HEMOGLOBIN 9.4 g/dL (12.0-16.0); LYMPHOCYTES # (AUTO) 1.6 K/uL (2.5-16.5); LYMPHOCYTES % (AUTO) 21.6 % (20.5-51.1); MEAN CORPUSCULAR HEMOGLOBIN 34 pg (27-31); MEAN CORPUSCULAR HGB CONC 35 g/dL (33-37); MEAN CORPUSCULAR VOLUME 99.6 fL (80-94); MONOCYTES # (AUTO) 0.7 K/uL (0.8-1.0); MONOCYTES % (AUTO) 9.2 % (1.7-9.3); NEUTROPHILS # (AUTO) 4.8 K/uL (1.8-7.7); NEUTROPHILS % (AUTO) 66.4 % (42.2-75.2); PLATELET COUNT (AUTO) 165 K/uL (140-450); RED BLOOD CELL COUNT(AUTO) 2.72 MIL/uL (4.20-5.40); RED CELL DISTRIBUTION WIDTH 14.5 % (11.6-13.7); WHITE BLOOD COUNT (AUTO) 7.3 K/uL (4.8-10.8)
[2018-04-14 08:00] VITALS: BP 167/79
--- NOTE | 2018-04-14 08:00 | NUR ---
V/S: 98.3 F, 167/79, 82, 16 AND 96%O2 SAT. PT C/O ABDOMINAL PAIN. SPEAKS GABONESE. WILL ADMINISTER MEDS AND AWAIT OR STAFF FOR COLONOSCOPY.
[2018-04-14 08:02] LABS: CHOL/HDL RATIO 1.9 (1-4.5); MAGNESIUM 1.8 mg/dL (1.8-2.4); PHOSPHORUS 2.9 mg/dL (2.5-4.9)
[2018-04-14 08:22] LABS: ANION GAP 11.8 (8-16); CARBON DIOXIDE 30.5 mmol/L (21-32); CHLORIDE 105 mmol/L (98-107); CREATININE 3.8 mg/dL (0.6-1.3); GLUCOSE 77 mg/dL (74-106); POTASSIUM 3.3 mmol/L (3.5-5.1); SODIUM SERUM 144 mmol/L (136-145); UREA NITROGEN, BLOOD 9 mg/dL (7-18)
[2018-04-14] MEDS: LACTULOSE 20 GM/30 ML UDC PO SCH ×3 (08:48→15:53)
[2018-04-14] MEDS: amLODIPine 5 MG TAB PO SCH (08:49)
[2018-04-14] MEDS: SEVELAMER CARBONATE 800 MG TAB PO SCH (08:49)
[2018-04-14] MEDS: LORATADINE 10 MG TAB PO SCH (08:49)
[2018-04-14] MEDS: SENNA 8.6 MG TAB PO SCH ×3 (08:50→15:54)
--- NOTE | 2018-04-14 09:00 | NUR ---
DR JAMA CALLED TO FIND OUT IF PT'S BOWELS ARE CLEAR. YES, CLEAR. NO BLEEDING NOTED. NOTIFIED MD. WILL SCHEDULE COLONOSCOPY TODAY. AWAITING SCHEDULE AND OR NURSES.
[2018-04-14] MEDS: MORPHINE SULFATE 2 MG/ML SYR IVP PRN ×2 (09:01→20:32)
--- NOTE | 2018-04-14 10:09 | NUR ---
PATIENT HAS BEEN SCREENED AND CATEGORIZED MODERATE NUTRITION RISK. PATIENT WILL BE SEEN WITHIN 3-5 DAYS OF ADMISSION. 04/15/18-04/17/[address]
--- NOTE | 2018-04-14 11:48 | NUR ---
PT SLEEPING SOUNDLY. NO SIGNS OF DISTRESS. STILL AWAITING DR JAMA FOR COLONOSCOPY.
[2018-04-14 12:00] VITALS: BP 156/66
[2018-04-14] MEDS ORDERED: POTASSIUM CHLORIDE 40 MEQ, LIDOCAINE MPF 1% - 5 mL VIAL 25 MG in NACL 0.9% 250 ML IV ONE (13:15)
--- NOTE | 2018-04-14 14:29 | NUR ---
1530 IS THE SET TIME FOR THE COLONOSCOPY. FAMILY IS AT BEDSIDE. NOTIFIED THEM.
[2018-04-14] MEDS ORDERED: diphenhydrAMINE 50 MG/ML VIAL ONE (15:38)
[2018-04-14] MEDS: fentaNYL 0.05 MG/ML VIAL ONE ×2 (15:52→16:15)
[2018-04-14] MEDS: MIDAZOLAM 2 MG/2 ML VIAL ONE ×2 (15:53→16:15)
[2018-04-14 17:00] VITALS: BP 133/63
--- NOTE | 2018-04-14 17:00 | NUR ---
PT RETURNED FROM THE COLONOSCOPY. PT SLEEPING. V/S WITHIN NORMAL RANGE. WILL CONTINUE TO MONITOR PT AND V/S PER POST OP PROTOCOL.
--- NOTE | 2018-04-14 18:05 | NUR ---
IRON IS ORDERED FOR 1700. PT IS HEAVILY SEDATED AND SLEEPING SOUNDLY. WILL WAIT UNTIL PT IS MORE AWAKE TO GIVE MEDS AND DINNER.
[2018-04-14] MEDS ORDERED: GLUCAGON 1 MG VIAL ONE (18:48)
--- NOTE | 2018-04-14 19:20 | NUR ---
ENDORSED PT TO THE LABOR UTILIZATION SUPERINTENDENT NURSE AT BEDSIDE FOR CONTINUITY OF CARE. PT IS ACCOMPANIED BY FAMILY. PT IS IN STABLE CONDITION. ENDORSED LATE MEDS TO NURSE. NURSE WILL ADMINISTER.
--- NOTE | 2018-04-14 19:21 | NUR ---
RECEIVED REPORT FROM DAY SHIFT NURSE UTE-RN AT BEDSIDE. PT AOX4-MALAY SPEAKING WITH FAMILY AT BEDSIDE. PT ON ROOM AIR WITH RIGHT HAND #24G AND LEFT ARM FISTULA- DIALYSIS MWF. PT IS AMBULATORY. DISCUSSED PLAN OF CARE AND PT VERBALIZED UNDERSTANDING. NO S/S OF RESPIRATORY DISTRESS OR DISCOMFORT NOTED AT THIS TIME. BED IN LOWEST POSITION, BED BREAKS ON, BOTH SIDE RAILS UP AND FALL PRECAUTIONS IN PLACE. BEDSIDE TABLE, COMMODE AND CALL LIGHT ARE WITHIN REACH. WILL CONTINUE TO MONITOR.
[2018-04-14 20:00] VITALS: BP 161/83
--- NOTE | 2018-04-14 20:00 | NUR ---
VITAL SIGNS TAKEN AND TOLERATED WELL. BLOOD GLUCOSE 86- NO INSULIN COVERAGE NEEDED. PT CURRENTLY EATING DINNER. PT C/O BACK PAIN 08/15- WILL ADMINISTER PAIN MEDICATION. NO S/S OF RESPIRATORY DISTRESS OR DISCOMFORT NOTED AT THIS TIME. WILL CONTINUE TO MONITOR.
[2018-04-14] MEDS: FERROUS SULFATE 325 MG TABEC PO SCH (20:31)
--- NOTE | 2018-04-14 20:32 | NUR ---
FERROUS SULFATE GIVEN LATE ENDORSED BY DAY SHIFT NURSE UTE BECAUSE PT WAS LETHARGIC FROM SURGERY. MORPHINE GIVEN FOR PAIN. PT TOLERATED WELL. ASSISTED PT TO USE TOILET. PT AMBULATED WELL WITH LITTLE ASSISTANCE. NO S/S OF RESPIRATORY DISTRESS OR DISCOMFORT NOTED AT THIS TIME. WILL CONTINUE TO MONITOR.
--- NOTE | 2018-04-14 20:40 | NUR ---
DR. REDMAN IN TO SEE PT. WHEN ASKED HOW PT WAS FEELING PT ANSWERED, "I FEEL GOOD."
--- NOTE | 2018-04-14 22:00 | NUR ---
PT SLEEPING IN BED. NO S/S OF RESPIRATORY DISTRESS OR DISCOMFORT NOTED AT THIS TIME. WILL CONTINUE TO MONITOR.
[2018-04-15] VITALS: BP 160/77
--- NOTE | 2018-04-15 02:00 | NUR ---
PT RESTING IN BED EATING ICE DUE TO THIRST. NO S/S OF RESPIRATORY DISTRESS OR DISCOMFORT NOTED AT THIS TIME. WILL CONTINUE TO MONITOR.
--- NOTE | 2018-04-15 04:00 | NUR ---
PT SLEEPING IN BED. NO S/S OF RESPIRATORY DISTRESS OR DISCOMFORT NOTED AT THIS TIME. WILL CONTINUE TO MONITOR.
--- NOTE | 2018-04-15 06:00 | NUR ---
BLOOD GLUCOSE 77- JUICE GIVEN AND PT TOLERATED WELL. NO S/S OF RESPIRATORY DISTRESS OR DISCOMFORT NOTED AT THIS TIME. WILL CONTINUE TO MONITOR.
[2018-04-15] MEDS: BLOOD GLUCOSE MONITORING 1 DEV DEV FS SCH ×4 (06:54→21:02)
--- NOTE | 2018-04-15 07:20 | NUR ---
ENDORSED PT CARE TO DAY SHIFT NURSE MARIPOSA-RN FOR CONTINUITY OF CARE.
--- NOTE | 2018-04-15 07:21 | NUR ---
Received report from pm nurse Bhumika. Pt resting in bed, awake, no signs of distress. Call light within reach.
[2018-04-15 08:00] VITALS: BP 165/77
[2018-04-15] MEDS: LACTULOSE 20 GM/30 ML UDC PO SCH (08:30)
[2018-04-15] MEDS: amLODIPine 5 MG TAB PO SCH (08:30)
[2018-04-15] MEDS: FERROUS SULFATE 325 MG TABEC PO SCH ×2 (08:30→17:03)
[2018-04-15] MEDS: SEVELAMER CARBONATE 800 MG TAB PO SCH (08:30)
[2018-04-15] MEDS: LORATADINE 10 MG TAB PO SCH (08:30)
[2018-04-15 10:33] LABS: BASOPHILS # (AUTO) 0.1 K/uL (0.00-0.22); BASOPHILS % (AUTO) 0.8 % (0.0-2.0); EOSINOPHILS # (AUTO) 0.2 K/uL (0-0.4); HEMATOCRIT 26.4 % (36-48); LYMPHOCYTES # (AUTO) 1.7 K/uL (2.5-16.5); LYMPHOCYTES % (AUTO) 23.4 % (20.5-51.1); MEAN CORPUSCULAR HEMOGLOBIN 35 pg (27-31); MEAN CORPUSCULAR HGB CONC 34 g/dL (33-37); MEAN CORPUSCULAR VOLUME 101.1 fL (80-94); MONOCYTES # (AUTO) 0.7 K/uL (0.8-1.0); MONOCYTES % (AUTO) 9.5 % (1.7-9.3); NEUTROPHILS # (AUTO) 4.6 K/uL (1.8-7.7); NEUTROPHILS % (AUTO) 63.3 % (42.2-75.2); PLATELET COUNT (AUTO) 153 K/uL (140-450); RED BLOOD CELL COUNT(AUTO) 2.62 MIL/uL (4.20-5.40); RED CELL DISTRIBUTION WIDTH 14.6 % (11.6-13.7); WHITE BLOOD COUNT (AUTO) 7.3 K/uL (4.8-10.8)
[2018-04-15 10:57] LABS: ANION GAP 10.7 (8-16); CARBON DIOXIDE 27.6 mmol/L (21-32); CHLORIDE 103 mmol/L (98-107); GLUCOSE 143 mg/dL (74-106); POTASSIUM 4.3 mmol/L (3.5-5.1); SODIUM SERUM 137 mmol/L (136-145); UREA NITROGEN, BLOOD 19 mg/dL (7-18)
[2018-04-15 11:00] LABS: MAGNESIUM 2.7 mg/dL (1.8-2.4); PHOSPHORUS 3.2 mg/dL (2.5-4.9)
[2018-04-15 11:04] LABS: CREATININE 7.4 mg/dL (0.6-1.3)
--- NOTE | 2018-04-15 14:30 | NUR ---
Dr. Hale at bedside to assess pt for surgical consult. Daughter Keke at bedside.
--- NOTE | 2018-04-15 15:00 | NUR ---
Obtained signature for surgical consent & central line placement consent from pt's daughter Keke with pt's verbal consent. Consents signed at pt's bedside. Per pt, she can't hold a pen properly d/t IV to right hand & weak left hand. Pt verbalized understanding of procedure & agree with plan of care.
[2018-04-15 16:00] VITALS: BP 153/78
[2018-04-15] MEDS: MORPHINE SULFATE 2 MG/ML SYR IVP PRN (18:02)
--- NOTE | 2018-04-15 18:13 | NUR ---
22G IV STARTED RIGHT AC. FLUSHED AND PATENT. PT RESTING IN BED. FAMILY AT BEDSIDE. PT RECEIVED PAIN MEDICATION PER ORDER BECAUSE OF COMPLAINT OF DISCOMFORT.
--- NOTE | 2018-04-15 18:40 | NUR ---
Received call from Dr. Berkowitz with order for HD stat. Spoke to Mclaughlin from [facility] via phone & notified of HD stat order. Per Mclaughlin, nurse will be on her way to see the pt for tx.
--- NOTE | 2018-04-15 19:23 | NUR ---
REPORT GIVEN TO PM NURSE CARLOS ALBERTO.
--- NOTE | 2018-04-15 19:24 | NUR ---
RECEIVED REPORT FROM DAY SHIFT NURSE MARIPOSA-RN AT BEDSIDE. PT AOX4-[place] SPEAKING WITH FAMILY AT BEDSIDE. PT ON ROOM AIR WITH RIGHT HAND #24G, RIGHT AC #22G AND LEFT ARM FISTULA- DIALYSIS MWF. PT IS AMBULATORY. DISCUSSED PLAN OF CARE AND PT VERBALIZED UNDERSTANDING. NO S/S OF RESPIRATORY DISTRESS OR DISCOMFORT NOTED AT THIS TIME. BED IN LOWEST POSITION, BED BREAKS ON, BOTH SIDE RAILS UP AND FALL PRECAUTIONS IN PLACE. BEDSIDE TABLE, COMMODE AND CALL LIGHT ARE WITHIN REACH. WILL CONTINUE TO MONITOR.
[2018-04-15 20:00] VITALS: BP 148/69
--- NOTE | 2018-04-15 20:00 | NUR ---
VITAL SIGNS TAKEN AND TOLERATED WELL. BLOOD GLUCOSE 122- NO INSULIN COVERAGE NEEDED. NO S/S OF RESPIRATORY DISTRESS OR DISCOMFORT NOTED AT THIS TIME. WILL CONTINUE TO MONITOR.
--- NOTE | 2018-04-15 20:35 | NUR ---
ONE BAG OF RBC STARTED DURING DIALYSIS WITH DIALYSIS NURSE. PT TOLERATING WELL. NO S/S OF RESPIRATORY DISTRESS OR DISCOMFORT NOTED AT THIS TIME. WILL CONTINUE TO MONITOR.
--- NOTE | 2018-04-15 21:05 | NUR ---
ONE BAG OF RBC COMPLETED. PT TOLERATED WELL. NO S/S OF RESPIRATORY DISTRESS OR DISCOMFORT NOTED AT THIS TIME. WILL CONTINUE TO MONITOR.
--- NOTE | 2018-04-15 22:00 | NUR ---
PT CONTINUES TO SLEEP IN BED. NO S/S OF RESPIRATORY DISTRESS OR DISCOMFORT NOTED AT THIS TIME. WILL CONTINUE TO MONITOR.
--- NOTE | 2018-04-15 22:40 | NUR ---
DIALYSIS COMPLETED. 3L OUTPUT. PT TOLERATED WELL. NO S/S OF RESPIRATORY DISTRESS OR DISCOMFORT NOTED AT THIS TIME. WILL CONTINUE TO MONITOR.
[2018-04-16] VITALS (10 sets, daily range): BP systolic 104–156; BP diastolic 61–94
--- NOTE | 2018-04-16 | NUR ---
VITAL SIGNS TAKEN AND TOLERATED WELL. NO S/S OF RESPIRATORY DISTRESS OR DISCOMFORT NOTED AT THIS TIME. WILL CONTINUE TO MONITOR.
--- NOTE | 2018-04-16 02:00 | NUR ---
PT CONTINUES TO SLEEP IN BED. NO S/S OF RESPIRATORY DISTRESS OR DISCOMFORT NOTED AT THIS TIME. WILL CONTINUE TO MONITOR.
--- NOTE | 2018-04-16 04:00 | NUR ---
PT CONTINUES TO SLEEP IN BED. NO S/S OF RESPIRATORY DISTRESS OR DISCOMFORT NOTED AT THIS TIME. WILL CONTINUE TO MONITOR.
[2018-04-16] MEDS: BLOOD GLUCOSE MONITORING 1 DEV DEV FS SCH ×4 (05:59→21:00)
--- NOTE | 2018-04-16 06:00 | NUR ---
BLOOD GLUCOSE 96- NO INSULIN COVERAGE GIVEN. NO S/S OF RESPIRATORY DISTRESS OR DISCOMFORT NOTED AT THIS TIME. WILL CONTINUE TO MONITOR.
[2018-04-16 06:54] LABS: CARBON DIOXIDE 29.7 mmol/L (21-32); CHLORIDE 103 mmol/L (98-107); GLUCOSE 100 mg/dL (74-106); POTASSIUM 3.7 mmol/L (3.5-5.1); SODIUM SERUM 140 mmol/L (136-145); UREA NITROGEN, BLOOD 13 mg/dL (7-18)
[2018-04-16 06:59] LABS: MAGNESIUM 2.1 mg/dL (1.8-2.4); PHOSPHORUS 3.3 mg/dL (2.5-4.9)
--- NOTE | 2018-04-16 07:15 | NUR ---
RECEIVED PT REPORT FROM DIRECTOR OF INTELLIGENCE NURSE AT BEDSIDE, PT IS CURRENTLY ASLEEP, NO S/S OF ACUTE DISTRESS OR SOB NOTED. PT IS ON ROOM AIR, SKIN IS INTACT. IV SITE IS ON R FA, 22 G, AND ALSO ON R HAND 24 G. THE HAND IV IS INFUSING NS 5 ML/HR, TKO. PT HAS A FISTULA IN [facility] FOR DIALYSIS. PT REGULARLY HAS DIALYSIS ON //, BUT HAD DIALYSIS YESTERDAY, SO SHE WILL NOT HAVE DIALYSIS TODAY. PT IS GOING TO HAVE RECTOSIGMOID COLECTOMY WITH POSSIBLE COLOSTOMY TODAY, CONSENT HAS ALREADY BEEN SIGNED. FALL PRECAUTIONS IN PLACE, CALL LIGHT WITHIN REACH, WILL CONTINUE TO MONITOR PT.
--- NOTE | 2018-04-16 07:19 | NUR ---
ENDORSED PT CARE TO DAY SHIFT NURSE ALEJANDRO FOR CONTINUITY OF CARE.
[2018-04-16 07:50] LABS: CREATININE 5.7 mg/dL (0.6-1.3)
[2018-04-16] MEDS: LACTULOSE 20 GM/30 ML UDC PO SCH ×2 (09:00→09:46)
[2018-04-16 09:19] LABS: BASOPHILS % (AUTO) 0.4 % (0.0-2.0); EOSINOPHILS # (AUTO) 0.3 K/uL (0-0.4); EOSINOPHILS % (AUTO) 4.4 % (0.0-4.0); HEMATOCRIT 35.3 % (36-48); HEMOGLOBIN 11.9 g/dL (12.0-16.0); LYMPHOCYTES # (AUTO) 1.4 K/uL (2.5-16.5); LYMPHOCYTES % (AUTO) 20.8 % (20.5-51.1); MEAN CORPUSCULAR HEMOGLOBIN 34 pg (27-31); MEAN CORPUSCULAR HGB CONC 34 g/dL (33-37); MEAN CORPUSCULAR VOLUME 99.9 fL (80-94); MONOCYTES # (AUTO) 0.7 K/uL (0.8-1.0); MONOCYTES % (AUTO) 9.9 % (1.7-9.3); NEUTROPHILS # (AUTO) 4.2 K/uL (1.8-7.7); NEUTROPHILS % (AUTO) 64.5 % (42.2-75.2); PLATELET COUNT (AUTO) 140 K/uL (140-450); RED BLOOD CELL COUNT(AUTO) 3.53 MIL/uL (4.20-5.40); RED CELL DISTRIBUTION WIDTH 14.8 % (11.6-13.7); WHITE BLOOD COUNT (AUTO) 6.6 K/uL (4.8-10.8)
[2018-04-16] MEDS: amLODIPine 5 MG TAB PO SCH (09:46)
[2018-04-16] MEDS: LORATADINE 10 MG TAB PO SCH (09:46)
[2018-04-16] MEDS: SEVELAMER CARBONATE 800 MG TAB PO SCH (09:46)
[2018-04-16] MEDS: FERROUS SULFATE 325 MG TABEC PO SCH ×2 (09:46→16:52)
--- NOTE | 2018-04-16 10:04 | NUR ---
PT'S HGB IS 11.[address] WILKINSON IS AWARE. CHARGE NURSE ALSO AWARE. WILL HOLD THE TWO UNITS OF BLOOD AT THIS TIME.
--- NOTE | 2018-04-16 10:51 | NUR ---
PRE-OP CHECKLIST DONE FOR PT'S SURGICAL PROCEDURE TODAY
--- NOTE | 2018-04-16 11:00 | NUR ---
Guyline Operator Note: Per patient's daughter Keke, she has questions/concerns regarding patient's surgery and would like to speak with MD. I informed of Keke's request. Per , she will contact Keke.
--- NOTE | 2018-04-16 13:30 | NUR ---
PT'S FAMILY VISITING AT BEDSIDE, PT AWAKE AND ALERT, NO S/S OF ANY ACUTE DISTRESS, SOB, OR C/O PAIN. PT'S IV'S ARE PATENT AND INTACT, PT IS KEEPING NPO.
--- NOTE | 2018-04-16 15:44 | NUR ---
04/16/18 RD INITIAL ASSESSMENT COMPLETED PLEASE REFER TO NUTRITION ASSESSMENT UNDER CARE ACTIVITY FOR ESTIMATED NUTRITIONAL NEEDS. 1. CONTINUE NPO MEDICALLY NECESSARY 2. IF/WHEN PATIENT IS MEDICALLY STABLE CONSIDER ADVANCING TO CLEAR LIQUID DIET. 3. RECOMMEND GRADUALLY ADVANCING DIET TO RENAL & CCHO 60 GM DIET, TOLERATED 4. RECOMMEND NEPHRO-DAREK QD 5. RD TO FOLLOW-UP 2-3 DAYS, HIGH RISK BUD MIRELES RD
--- NOTE | 2018-04-16 16:54 | NUR ---
PT STILL IN ROOM WITH FAMILY VISITING, AWAITING HER SURGICAL PROCEDURE. NO S/S OF ACUTE DISTRESS NOTED. WILL CONTINUE TO MONITOR PT.
[2018-04-16] MEDS ORDERED: ERTAPENEM SODIUM 1,000 MG in NACL 0.9% 50 ML IV SCH (17:35)
--- NOTE | 2018-04-16 17:45 | NUR ---
PT TAKEN OFF THE FLOOR FOR SURGICAL PROCEDURE AT THIS TIME
[2018-04-16] MEDS ORDERED: fentaNYL 0.05 MG/ML VIAL ONE (17:54)
[2018-04-16] MEDS ORDERED: ONDANSETRON 4 MG/2 ML VIAL ONE (18:05)
[2018-04-16] MEDS ORDERED: ROCURONIUM 50 MG/5 ML VIAL IV ONE (18:05)
[2018-04-16] MEDS ORDERED: KETOROLAC 30 MG/ML VIAL ONE (18:05)
[2018-04-16] MEDS ORDERED: DEXAMETHASONE 4 MG/ML VIAL ONE (18:05)
[2018-04-16] MEDS ORDERED: PROPOFOL 200 MG/20 ML VIAL IV ONE (18:05)
[2018-04-16] MEDS ORDERED: SEVOFLURANE 250 ML BTL INH ONE (18:05)
[2018-04-16] MEDS ORDERED: NEOSTIGMINE 1:1000 10 MG/10 ML VIAL ONE (18:05)
[2018-04-16] MEDS ORDERED: SUCCINYLCHOLINE CHLORIDE 200 MG/10 ML VIAL IVP ONE (18:05)
[2018-04-16] MEDS ORDERED: metroNIDAZOLE 500 MG/NS PREMIX 100 ML IV SCH (19:00)
--- NOTE | 2018-04-16 19:00 | NUR ---
PT IS STILL AT THE OR AT THIS TIME
--- NOTE | 2018-04-16 19:26 | NUR ---
PER DR SIMS, PT IS GOING TO THE ICU AFTER SURGICAL PROCEDURE.
[2018-04-16] MEDS ORDERED: BUPIVACAINE-MPF 0.25% 30 ML VIAL INJ ONE (20:03)
--- NOTE | 2018-04-16 20:45 | NUR ---
RECEIVED REPORT FROM OR NURSE. PT LETHARGIC. LUNG SOUNDS CLEAR . EVEN UNLABORED BREATHING. ON SIMPLE MASK 6LPM. S/P RECTOSIGMOID RESECTION. SR ON MONITOR. NPO AT THIS TIME. OSTOMY BAG PRESENT. F/C IN PLACE. AV FISTULA TO LUE. RIGHT HAND 24G RIGHT AC 22G. IV SITE PATENT INTACT. MIDLINE INCISION DRESSING INTACT. BED IN LOWEST POSITION. SIDE RAILS UP X 4. WILL CONTINUE TO MONITOR.
--- NOTE | 2018-04-16 21:05 | NUR ---
DR. BERNARD AT BEDSIDE AT THIS TIME. UPDATED ON PTS CURRENT CONDITION. WILL CONTINUE TO FOLLOW UP ANY ADDITIONAL ORDERS
--- NOTE | 2018-04-16 21:15 | NUR ---
FAMILY AT BEDSIDE AT THIS TIME
[2018-04-16] MEDS: MORPHINE SULFATE 4 MG/ML SYR IV PRN (21:27)
--- NOTE | 2018-04-16 21:30 | NUR ---
PT C/O PAIN 11/15 TO ABD AT THIS TIME. ADMINISTERED MORPHINE IVP. WILL REEVALUATE PAIN MED EFFECTIVENESS.
--- NOTE | 2018-04-16 22:00 | NUR ---
PT ASLEEP AT THIS TIME. VITAL SIGNS STABLE
--- NOTE | 2018-04-16 23:30 | NUR ---
PT MOANING AT THIS TIME. STATES PAIN 07/16. ADMINISTERED MORPHINE IVP. WILL REEVALUATE PAIN EFFECTIVENESS
[2018-04-16] MEDS: MORPHINE SULFATE 2 MG/ML SYR IVP PRN (23:31)
[2018-04-17] VITALS (7 sets, daily range): BP systolic 114–154; BP diastolic 53–78
--- NOTE | 2018-04-17 00:12 | NUR ---
DENTURES AT BEDSIDE. BROUGHT IN BY [facility] STAFF
[2018-04-17] MEDS: MORPHINE SULFATE 4 MG/ML SYR IV PRN ×2 (02:02→13:18)
--- NOTE | 2018-04-17 04:06 | NUR ---
PT RESTING IN BED. NO C/O PAIN AT THIS TIME. CONTINUE TO MONITOR
--- NOTE | 2018-04-17 04:38 | NUR ---
LAB AT BEDSIDE AT THIS TIME FOR AM DRAWS
--- NOTE | 2018-04-17 06:24 | NUR ---
DR. THAO AT BEDSIDE AT THIS TIME. UPDATED ON PTS CURRENT CONDITION
[2018-04-17 06:26] LABS: CARBON DIOXIDE 22.7 mmol/L (21-32); CHLORIDE 104 mmol/L (98-107); GLUCOSE 122 mg/dL (74-106); POTASSIUM 4.7 mmol/L (3.5-5.1); SODIUM SERUM 142 mmol/L (136-145); UREA NITROGEN, BLOOD 33 mg/dL (7-18)
[2018-04-17 06:33] LABS: CREATININE 8.5 mg/dL (0.6-1.3)
--- NOTE | 2018-04-17 06:34 | NUR ---
CRITICAL LAB RESULT CREAT 8.5 DR. THAO MADE AWARE
[2018-04-17 06:35] LABS: MAGNESIUM 2.2 mg/dL (1.8-2.4); PHOSPHORUS 6.9 mg/dL (2.5-4.9)
[2018-04-17] MEDS: BLOOD GLUCOSE MONITORING 1 DEV DEV FS SCH ×4 (06:37→21:20)
[2018-04-17 06:42] LABS: BASOPHILS % (AUTO) 0.1 % (0.0-2.0); HEMATOCRIT 34.2 % (36-48); HEMOGLOBIN 11.6 g/dL (12.0-16.0); LYMPHOCYTES # (AUTO) 0.5 K/uL (2.5-16.5); LYMPHOCYTES % (AUTO) 4.4 % (20.5-51.1); MEAN CORPUSCULAR HEMOGLOBIN 34 pg (27-31); MEAN CORPUSCULAR HGB CONC 34 g/dL (33-37); MEAN CORPUSCULAR VOLUME 99.9 fL (80-94); MONOCYTES # (AUTO) 0.7 K/uL (0.8-1.0); MONOCYTES % (AUTO) 5.8 % (1.7-9.3); NEUTROPHILS # (AUTO) 10.2 K/uL (1.8-7.7); NEUTROPHILS % (AUTO) 89.7 % (42.2-75.2); PLATELET COUNT (AUTO) 158 K/uL (140-450); RED BLOOD CELL COUNT(AUTO) 3.42 MIL/uL (4.20-5.40); RED CELL DISTRIBUTION WIDTH 14.1 % (11.6-13.7); WHITE BLOOD COUNT (AUTO) 11.4 K/uL (4.8-10.8)
--- NOTE | 2018-04-17 06:59 | NUR ---
ENDORSED CARE TO INCOMING SHIFT FOR CONTINUITY OF CARE. BED IN LOWEST POSITION. SR UP X4. NO SIGNS OF ACUTE DISTRESS AT THIS TIME
--- NOTE | 2018-04-17 07:19 | NUR ---
RECEIVED BEDSIDE REPORT FROM ENERGY RISK MANAGEMENT ANALYST RN, JASMINA, FOR CONTINUITY OF CARE. PATIENT IS AAOX4, ABLE TO MAKE NEEDS KNOWN AND FOLLOWS COMMANDS. PATIENT SKIN IS WARM AND DRY, AFEBRILE. SHE IS POST S/P RECTOSIGMOID RESECTION, DRESSING CLEAN AND DRY, NO SIGNS OF BLEEDING NOTED. PATIENT HAS AV FISTULA TO UPPER LEFT ARM. SHE IS ON ROOM AIR, O2 SAT IS 98%, BREATHING EVEN AND UNLABORED. ST ON MONITOR, DENIES PAIN AT THIS TIME. OSTOMY BAG IN PLACE TO LEFT LOWER ABD. BOYD CATHETER IN PLACE. SCD'S IN PLACE. HOB IS SEMI FOWLERS, CALL LIGHT WITHIN REACH. SAFETY PRECAUTIONS AND ALARMS ASSESSED AND ENFORCED. NO SIGNS OF DISTRESS AT THIS TIME. WILL CONTINUE TO MONITOR.
--- NOTE | 2018-04-17 07:38 | NUR ---
SPOKE WITH PATIENT'S DAUGHTER JAYNA POTTS REGARDING PATIENT'S DIET SINCE PATIENT COMPLAINS THAT SHE IS HUNGRY. EDUCATED PATIENT ON DIET AND THAT SHE CAN ONLY EAT ICE CHIPS DUE TO POST SURGERY.
--- NOTE | 2018-04-17 08:01 | NUR ---
DR. CISSE AND RESIDENT PHYSICIANS ARE HERE TO ROUND ON PATIENT. WILL FOLLOW UP ON ANY ORDERS.
--- NOTE | 2018-04-17 08:30 | NUR ---
DR. SIMS IN TO SEE PATIENT, STATES OK TO GIVE MORNING PO MEDICATIONS.
[2018-04-17] MEDS: LORATADINE 10 MG TAB PO SCH (08:53)
[2018-04-17] MEDS: FERROUS SULFATE 325 MG TABEC PO SCH ×2 (08:53→18:30)
[2018-04-17] MEDS: LACTULOSE 20 GM/30 ML UDC PO SCH (08:53)
[2018-04-17] MEDS ORDERED: ENOXAPARIN 30 MG/0.3 ML SYR SUBQ SCH (09:00)
--- NOTE | 2018-04-17 09:20 | NUR ---
PATIENT FAMILY AT BEDSIDE.
--- NOTE | 2018-04-17 10:04 | NUR ---
DR. THAO HERE. OK TO START PATIENT ON CLEAR LIQUID DIET.
[2018-04-17] MEDS ORDERED: PROBIOTIC SCREEN 1 EA MISC MC PRN (12:10)
--- NOTE | 2018-04-17 13:20 | NUR ---
PATIENT IS COMPLAINING OF 7/10 PAIN TO THE S/P INCISION SITE. WILL ADMINISTER PRN PAIN MEDICATION
--- NOTE | 2018-04-17 14:51 | NUR ---
Power Tool Repair Technician Note: Per patient's daughter Keke, she will speak with the rest of her family regarding snf placement.
--- NOTE | 2018-04-17 15:20 | NUR ---
DR. OROSCO IS HERE TO SEE AND EXAMINE PATIENT, RECEIVED ORDER FOR HEMODIALYSIS FOR TODAY. [facility] WAS CALLED AND THEY ARE AWARE.
--- NOTE | 2018-04-17 17:00 | NUR ---
PATIENT ARRIVED ON THE UNIT IN [facility] AND ACCOMPANIED BY FAMILY AND ICU NURSE ROOPA. PT IS AOX4. SPEAKING PORTUGUESE AND COMPREHEND SOME FAROESE. ABLE TO FOLLOW COMMANDS AND MAKE NEEDS KNOWN. DENIES PAIN AND SOB. RESPIRATION IS EVEN AND UNLABORED. NO SIGNS OF DISTRESS NOTED. IV IN R HAND 22G AND 24G, SALINE LOCK, NOT INFUSING AT THIS TIME. IV SITE CLEAN AND DRY. PT HAS OSTOMY BAG ON THE L ABD QUADRANT, INTACT AND 1/3 FULL. NO REDNESS AROUND THE OSTOMY BAG. SURGICAL INCISIONS ON R ABD NOTED, OTHERWISE SKIN INTACT AND DRY. ABD DRESSING INTACT AND DRY. BOYD DRAINING CLEAR LAURIE URINE. DISCUSSED PLAN OF CARE WITH PT AND FAMILY, BOTH VERBALIZED UNDERSTANDING. COMPRESSION SOCKS IN PLACE. VITAL SIGNS TAKEN; TEMP 97.5, BP 154/78, SPO2 98%, PULSE 78, RR 18, PT DENIES PAIN. ORIENTED PT AND FAMILY TO THE ROOM AND INSTRUCTED THEM HOW TO USE THE CALL LIGHT FOR ANY ASSISTANCE, TV, AND LIGHT. FALL PROTOCOL INITIAL. BED IN LOW POSITION, AND CALL LIGHT WITHIN REACH.
--- NOTE | 2018-04-17 17:15 | NUR ---
TRANSFERRED PATIENT TO [facility] VIA BED, ACCOMPANIED BY MST RN, YUKO. PATIENT IS HOOKED TO ESL INSTRUCTOR, VITAL SIGNS STABLE DURING TRANSFER. ENDORSED CONTINUITY OF CARE TO YUKO JEROME.
[2018-04-17] MEDS ORDERED: ERTAPENEM SODIUM 500 MG in NACL 0.9% 50 ML IV SCH (17:35)
--- NOTE | 2018-04-17 18:05 | NUR ---
PT IS EATING DINNER ON BED. FAMILY IS AT BEDSIDE. NO SIGNS OF DISTRESS NOTED.
--- NOTE | 2018-04-17 19:20 | NUR ---
ENDORSED PATIENT AT BEDSIDE TO WREATH MAKER NURSE FOR CONTINUITY OF CARE. PATIENT IS IN STABLE CONDITION.
--- NOTE | 2018-04-17 19:35 | NUR ---
RECEIVED BEDSIDE REPORT FROM DAY SHIFT NURSE FOR CONTINUITY OF CARE. PATIENT AWAKE, ALERT, RESPIRATION EVEN UNLABORED ON ROOM AIR. DENIES PAIN. SKIN IS WARM AND DRY. IV PATENT AND INTACT. BOYD CATHETER DRAINING YELLOW URINE. COLOSTOMY BAG IN PLACE. S/P ABDOMINAL INCISION NOTED. DRESSING INTACT AND DRY. FAMILY AT BEDSIDE. PLAN OF CARE WAS DISCUSSED WITH THE PATIENT. ALL SAFETY MEASURES ARE IN PLACE. BED IS AT LOW POSITION. CALL LIGHT WITHIN REACH. WILL CONTINUE TO MONITOR.
--- NOTE | 2018-04-17 20:20 | NUR ---
INITIAL ASSESSMENT DONE. VITALS WERE TAKEN. AV FISTULA TO LEFT HAND NOTED. EMPTY OSTOMY BAG. NO REDNESS OR SWELLING NOTED. BAG IS INTACT. WILL CONTINUE TO MONITOR.
--- NOTE | 2018-04-17 21:20 | NUR ---
ALL MEDS DUE WERE GIVEN PER ORDER. NO ASE NOTED. WILL CONTINUE TO MONITOR.
--- NOTE | 2018-04-17 22:45 | NUR ---
PATIENT LYING IN BED WATCHING TV RESPIRATION EVEN UNLABORED ON ROOM AIR. NO DISTRESS NOTED AT THIS TIME. CALL LIGHT WITHIN REACH. WILL CONTINUE TO MONITOR
[2018-04-18] VITALS: BP 127/72
--- NOTE | 2018-04-18 | NUR ---
CHECKED PATIENT. VITALS WERE TAKEN. PATIENT CONDITION STABLE. CALL LIGHT WITHIN REACH. WILL CONTINUE TO MONITOR
--- NOTE | 2018-04-18 02:40 | NUR ---
RECEIVED BEDSIDE REPORT FROM QUEENIE NEWTON FOR CONTINUITY OF CARE. PATIENT SLEEPING IN BED. ON FALL RISK, 2 IVS IN LEFT HAND. BOYD CATH IN PLACE DRAINING DARK YELLOW URINE, COLOSTOMY IN PLACE. NOTED ABDOMINAL SURGICAL WOUNDS FROM RECTAL RESECTION. LAMAR STATED DRESSING INTACT AND NOT TO BE CHANGED UNTIL SEEN BY DR SIMS. HAS LEFT AV SHUNT THAT DOES NOT WORK. PATIENT TO HAVE JOSEPH CATH PLACED IN TODAY BY DR SIMS, NO ORDER YET FOR WHICH TYPE OF CATH TO BE INSERTED. ASKED CHARGE NURSE CHULA REGARDING CONSENT, CHARGE NURSE STATED WE DON'T HAVE ORDER FOR PROCEDURE SO WE CANT GET CONSENT YET. ASKED CHARGE NURSE REGARDING BLOOD TRANSFUSION, CHARGE NURSE STATED PATIENT DOES NOT NEED BLOOD ALREADY HAD IT. NOTED PATIENT HAS ORDER TO HAVE DIALYSIS TOMORROW. BED ALARM ON, CALL LIGHT WITHIN REACH, WILL CONTINUE TO MONITOR.
[2018-04-18] MEDS: MORPHINE SULFATE 2 MG/ML SYR IVP PRN ×3 (03:48→20:35)
--- NOTE | 2018-04-18 03:56 | NUR ---
V/S TAKEN ALL WITHIN NORMAL LIMITS. PATIENT C/O PAIN, GAVE MORPHINE. D/C IV IN LEFT HAND 22 G CATH INTACT DUE TO NOT PATENT. 24G PATENT.
[2018-04-18 03:58] VITALS: BP 134/69
--- NOTE | 2018-04-18 05:15 | NUR ---
BLOOD GLUCOSE 83 NO COVERAGE NEEDED.
[2018-04-18] MEDS: BLOOD GLUCOSE MONITORING 1 DEV DEV FS SCH ×4 (05:58→20:44)
[2018-04-18 06:37] LABS: BASOPHILS % (AUTO) 0.2 % (0.0-2.0); EOSINOPHILS % (AUTO) 0.4 % (0.0-4.0); HEMATOCRIT 30.4 % (36-48); HEMOGLOBIN 10.3 g/dL (12.0-16.0); LYMPHOCYTES # (AUTO) 1.7 K/uL (2.5-16.5); LYMPHOCYTES % (AUTO) 17.1 % (20.5-51.1); MEAN CORPUSCULAR HEMOGLOBIN 34 pg (27-31); MEAN CORPUSCULAR HGB CONC 34 g/dL (33-37); MEAN CORPUSCULAR VOLUME 100.5 fL (80-94); MONOCYTES # (AUTO) 0.5 K/uL (0.8-1.0); MONOCYTES % (AUTO) 4.9 % (1.7-9.3); NEUTROPHILS # (AUTO) 7.5 K/uL (1.8-7.7); NEUTROPHILS % (AUTO) 77.4 % (42.2-75.2); PLATELET COUNT (AUTO) 145 K/uL (140-450); RED BLOOD CELL COUNT(AUTO) 3.02 MIL/uL (4.20-5.40); RED CELL DISTRIBUTION WIDTH 14.3 % (11.6-13.7); WHITE BLOOD COUNT (AUTO) 9.7 K/uL (4.8-10.8)
[2018-04-18 06:44] LABS: ANION GAP 16.7 (8-16); CARBON DIOXIDE 23.6 mmol/L (21-32); CHLORIDE 101 mmol/L (98-107); GLUCOSE 89 mg/dL (74-106); SODIUM SERUM 136 mmol/L (136-145); UREA NITROGEN, BLOOD 58 mg/dL (7-18)
--- NOTE | 2018-04-18 06:49 | NUR ---
RECHECKED BG 434. WILL ENDORSED TO CHECK AGAIN ONCE LANTUS TAKES AFFECT.
[2018-04-18 06:51] LABS: MAGNESIUM 2.3 mg/dL (1.8-2.4); PHOSPHORUS 7.6 mg/dL (2.5-4.9)
--- NOTE | 2018-04-18 07:05 | NUR ---
RECEIVED BEDSIDE REPORT FROM QUEENIE GARCIA. PT STABLE, AWAKE, AND ALERT AND ORIENTED X4. NO SIGNS OF DISTRESS NOTED. DENIES PAIN OR SOB. NO REDNESS, SWELLING, OR INFLAMMATION NOTED ON IV SITE, SALINE LOCKED. CALL MARIE WITHIN REACH. BED IN LOWEST POSITION. SAFETY MEASURES IN PLACE. PLAN OF CARE REVIEWED.
--- NOTE | 2018-04-18 07:05 | NUR ---
ENDORSED PATIENT TO DAY SHIFT NURSE, PATIENT STABLE.
[2018-04-18 07:12] LABS: POTASSIUM 5.3 mmol/L (3.5-5.1)
[2018-04-18 08:00] VITALS: BP 143/74
[2018-04-18 08:00] LABS: CREATININE 10.1 mg/dL (0.6-1.3)
[2018-04-18] MEDS: LORATADINE 10 MG TAB PO SCH (08:26)
[2018-04-18] MEDS: FERROUS SULFATE 325 MG TABEC PO SCH ×2 (08:26→17:59)
[2018-04-18] MEDS: LACTULOSE 20 GM/30 ML UDC PO SCH (08:26)
--- NOTE | 2018-04-18 08:40 | NUR ---
ADMINISTERED SCHEDULED MEDICATIONS. PT TOLERATED WELL. NO OTHER NEEDS AT THIS TIME.
--- NOTE | 2018-04-18 10:00 | NUR ---
SPOKE WITH DR OROSCO ON THE PHONE REGARDING PLAN OF CARE.
[2018-04-18 12:00] VITALS: BP 134/68
--- NOTE | 2018-04-18 12:05 | NUR ---
PAGED DR. SIMS.
--- NOTE | 2018-04-18 12:09 | NUR ---
RECEIVED CALL BACK FROM DR. SIMS.
--- NOTE | 2018-04-18 12:18 | NUR ---
MADE DR OROSCO AWARE PER DR. SIMS, HE WILL INSERT DIALYSIS CATHETER EARLY HE CAN OR LATER TONIGHT.
--- NOTE | 2018-04-18 14:00 | NUR ---
PT STABLE, SLEEPING, BUT EASILY AROUSABLE. NO SIGNS OF DISTRESS NOTED.
[2018-04-18 16:00] VITALS: BP 138/65
--- NOTE | 2018-04-18 16:10 | NUR ---
VITAL SIGNS TAKEN, PT STABLE, AWAKE, AND ALERT. NO SIGNS OF DISTRESS NOTED. FAMILY AT THE BEDSIDE.
[2018-04-18] MEDS ORDERED: HYDROmorphone 1 MG/ML AMP IVP SCH (16:50)
[2018-04-18] MEDS ORDERED: LORazepam 2 MG/ML VIAL IVP SCH (16:50)
[2018-04-18] MEDS ORDERED: LIDOCAINE 1% 500 MG/50 ML VIAL INJ SCH (17:35)
[2018-04-18] MEDS: ACETAMINOPHEN 325 MG TAB PO PRN (17:58)
--- NOTE | 2018-04-18 17:58 | NUR ---
ADMINISTERED TYLENOL FOR TEMP 101.1. WILL RECHECK TEMP.
--- NOTE | 2018-04-18 18:00 | NUR ---
DR THAO AT BEDSIDE TO INSERT JOSEPH CATHETER FOR HEMODIALYSIS.
--- NOTE | 2018-04-18 18:06 | NUR ---
PER DR THAO, ADMINISTER DILAUDID 0.5 ML ONLY PRIOR TO JOSEPH CATHETER INSERTION. PT TOLERATED WELL. ATIVAN HELD PER DR THOA.
--- NOTE | 2018-04-18 18:50 | NUR ---
TEMP RECHECKED, DOWN TO 99.5 F.
--- NOTE | 2018-04-18 19:10 | NUR ---
ENDORSED PT TO QUEENIE GOMES FOR CONTINUITY OF CARE. PT STABLE, SLEEPING, BUT EASILY AROUSABLE.
--- NOTE | 2018-04-18 19:11 | NUR ---
RECEIVED BEDSIDE REPORT FROM DAY SHIFT NURSE LUDIN RN, PT STABLE, NO DISTRESS NOTED, IV TO R HAND 24G, PATENT, INTACT, SL, PT ON ROOM AIR, NO SOB, DRESSING INTACT, PER REPORT FOR DR. SIMS TO REMOVE, COLOSTOMY BAG INTACT DRAINING BROWN LIQUID, BOYD CATH IN PLACE, DRAINING YELLOW URINE, INITIAL ASSESSMENT DONE, ALL SAFETY PRECAUTION MET, CALL LIGHT WITHIN REACH, WILL CONTINUE TO MONITOR.
[2018-04-18 20:00] VITALS: BP 125/60
--- NOTE | 2018-04-18 20:35 | NUR ---
DUE MEDICATION ADMINISTERED, PT TOLERATED WELL, PT STATED HAVING PAIN TO THE ABD SURGICAL SITE, 07/16, PAIN MEDICATION ADMINISTERED, PT TOLERATED WELL, NO DISTRESS NOTED, CALL LIGHT WITHIN REACH, WILL CONTINUE TO MONITOR.
--- NOTE | 2018-04-18 21:45 | NUR ---
DR. SIMS CAME AND SAW PT, REMOVED DRESSING, NEW DRESSING PLACED, PICTURE TAKEN, PT TOLERATED WELL, NO DISTRESS NOTED, PT CURRENTLY AT HEMODIALYSIS, CALL LIGHT WITHIN REACH, WILL CONTINUE TO MONITOR.
--- NOTE | 2018-04-18 22:06 | NUR ---
PER DIALYSIS NURSE TO ORDER HEPARIN 5000 UNITS X2, FOR POST DIALYSIS UNDER DR. OROSCO, PUT IN ORDERS AND WILL CONTINUE WITH ORDERS.
[2018-04-18] MEDS ORDERED: PIPERACILLIN/TAZOBACTAM 2.25 GM VIAL IV ONE (22:42)
[2018-04-18] MEDS ORDERED: PIPER/TAZO 2.25GM/D5W PREMIX 50 ML IV SCH (23:00)
--- NOTE | 2018-04-18 23:40 | NUR ---
DIALYSIS COMPLETED, PT TOLERATED WELL, NO DISTRESS NOTED, 1L OUTPUT, PT SLEEPING, NO DISTRESS NOTED, CALL LIGHT WITHIN REACH, WILL CONTINUE TO MONITOR.
[2018-04-19] VITALS: BP 126/66
--- NOTE | 2018-04-19 03:55 | NUR ---
CHECKED ON PT, PT RESTING, NO DISTRESS NOTED, CALL LIGHT WITHIN REACH, WILL CONTINUE TO MONITOR. Addendum: 04/19/18 at 0538 by Lay Beltre RN V/S TAKEN WITHIN PT BASELINE,
[2018-04-19 04:00] VITALS: BP 157/79
[2018-04-19] MEDS ORDERED: PIPERACILLIN/TAZOBACTAM 2.25 GM VIAL IV ONE (04:51)
[2018-04-19] MEDS: PIPER/TAZO 2.25GM/D5W PREMIX 50 ML IV SCH ×3 (05:00→20:41)
--- NOTE | 2018-04-19 05:20 | NUR ---
NOTIFIED DR. RODRIGUEZ REGARDING PT HAS NOT URINATE SINCE BOYD IS D/C, BUT PT HAD DIALYSIS TODAY AND 1 L WAS TAKEN OUT, PT STATED HAVING NO URGENCY, OR SENSATION OF WANTING TO URINATE AT THIS MOMENT, STATED IT IS OK, TO CONTINUE TO MONITOR PT AT THIS MOMENT. PT RESTING, NO DISTRESS NOTED, CALL LIGHT WITHIN REACH, WILL CONTINUE TO MONITOR.
[2018-04-19] MEDS: BLOOD GLUCOSE MONITORING 1 DEV DEV FS SCH ×4 (06:15→20:41)
--- NOTE | 2018-04-19 07:15 | NUR ---
RECEIVED PT REPORT FROM COMMISSARY HELPER NURSE AT BEDSIDE. PT IS ASLEEP BUT AROUSABLE. NO S/S OF ANY ACUTE DISTRESS OR SOB NOTED. PT CODE IS DNR. PT IS ON ROOM AIR, SKIN INTACT ASIDE FROM SURGICAL INCISIONS; COLOSTOMY IN PLACE. IV SITE IS ON THE R WRIST, 24 G, SALINE LOCKED. PT ON CLEAR LIQUID DIET. JOSEPH CATH NOTED ON THE RIJ FOR HEMODIALYSIS. FALL PRECAUTIONS ARE IN PLACE. CALL LIGHT WITHIN REACH. WILL CONTINUE TO MONITOR.
[2018-04-19 07:24] LABS: BASOPHILS % (AUTO) 0.2 % (0.0-2.0); EOSINOPHILS # (AUTO) 0.1 K/uL (0-0.4); EOSINOPHILS % (AUTO) 1.5 % (0.0-4.0); HEMATOCRIT 29.4 % (36-48); HEMOGLOBIN 10.1 g/dL (12.0-16.0); LYMPHOCYTES # (AUTO) 1.4 K/uL (2.5-16.5); LYMPHOCYTES % (AUTO) 14.3 % (20.5-51.1); MEAN CORPUSCULAR HEMOGLOBIN 35 pg (27-31); MEAN CORPUSCULAR HGB CONC 35 g/dL (33-37); MONOCYTES # (AUTO) 0.5 K/uL (0.8-1.0); NEUTROPHILS # (AUTO) 7.5 K/uL (1.8-7.7); PLATELET COUNT (AUTO) 139 K/uL (140-450); RED BLOOD CELL COUNT(AUTO) 2.94 MIL/uL (4.20-5.40); RED CELL DISTRIBUTION WIDTH 14.1 % (11.6-13.7); WHITE BLOOD COUNT (AUTO) 9.4 K/uL (4.8-10.8)
--- NOTE | 2018-04-19 07:28 | NUR ---
ENDORSED PT TO DAY SHIFT NURSE MISTY RN, PT STABLE, NO DISTRESS NOTED, CALL LIGHT WITHIN REACH.
[2018-04-19 07:47] LABS: ANION GAP 14.3 (8-16); CARBON DIOXIDE 27.1 mmol/L (21-32); CHLORIDE 99 mmol/L (98-107); GLUCOSE 100 mg/dL (74-106); POTASSIUM 3.4 mmol/L (3.5-5.1); SODIUM SERUM 137 mmol/L (136-145); UREA NITROGEN, BLOOD 26 mg/dL (7-18)
[2018-04-19 07:49] LABS: CREATININE 6.2 mg/dL (0.6-1.3)
[2018-04-19 07:52] LABS: MAGNESIUM 1.7 mg/dL (1.8-2.4); PHOSPHORUS 4.2 mg/dL (2.5-4.9)
[2018-04-19 08:00] VITALS: BP_SYST 147; BP_SYST 154; BP_DIAS 70; BP_DIAS 71
--- NOTE | 2018-04-19 08:50 | NUR ---
PT'S GRANDDAUGHTER VISITING AT BEDSIDE. PT C/O ABD INCISIONAL PAIN 08/15, WILL MEDICATE.
[2018-04-19] MEDS: FERROUS SULFATE 325 MG TABEC PO SCH ×2 (08:52→17:52)
[2018-04-19] MEDS: LACTULOSE 20 GM/30 ML UDC PO SCH (08:52)
[2018-04-19] MEDS: LORATADINE 10 MG TAB PO SCH (08:52)
[2018-04-19] MEDS: MORPHINE SULFATE 2 MG/ML SYR IVP PRN ×2 (08:53→14:27)
[2018-04-19] MEDS ORDERED: POTASSIUM CHLORIDE 10 MEQ TABER PO SCH (10:15)
[2018-04-19] MEDS ORDERED: MAGNESIUM OXIDE 400 MG TAB PO SCH (10:15)
[2018-04-19] MEDS ORDERED: POTASSIUM CHLORIDE 10 MEQ TABER PO ONE (10:20)
--- NOTE | 2018-04-19 11:35 | NUR ---
PT'S FAMILY VISITING AT BEDSIDE, PT COMFORTABLE IN BED, NO S/S OF ACUTE DISTRESS OR SOB. INCISIONAL PAIN IS TOLERABLE AT THIS TIME. PT'S BLOOD GLUCOSE IS 111.
[2018-04-19 12:00] VITALS: BP 147/71
--- NOTE | 2018-04-19 15:59 | NUR ---
04/19/18 RD FOLLOW UP COMPLETED PLEASE REFER TO NUTRITION ASSESSMENT UNDER CARE ACTIVITY FOR ESTIMATED NUTRITIONAL NEEDS. 1. RECOMMEND RENAL AND CCHO 60 GM MECH SOFT DIET TOLERATED 2. RECOMMEND NEPRO TID 3. RD PROVIDED NUTRITION EDUCATION ON RENAL AND COLOSTOMY 4. RD TO FOLLOW-UP 2-3 DAYS, HIGH RISK BUD MIRELES, RD
[2018-04-19 16:00] VITALS: BP 148/76
--- NOTE | 2018-04-19 16:53 | NUR ---
PT'S TEMP IS 102 (ORAL) AT THIS TIME. DR WILKINSON IS AWARE. SHE IS SEEING THE PT AT THIS TIME.
[2018-04-19] MEDS: ACETAMINOPHEN 325 MG TAB PO PRN (16:54)
--- NOTE | 2018-04-19 17:15 | NUR ---
COOLING MEASURES IN PLACE: ICE PACKS APPLIED TO PT, AND ONLY ONE SHEET PLACED ON PT FOR COMFORT. TYLENOL WAS ADMINISTERED.
--- NOTE | 2018-04-19 17:32 | NUR ---
PT'S HEMODIALYSIS CONFIRMED WITH [facility] FOR TOMORROW
--- NOTE | 2018-04-19 17:35 | NUR ---
PT HAVING CHEST X-RAY AT THIS TIME
--- NOTE | 2018-04-19 17:55 | NUR ---
RECHECKED PT'S TEMP, IT IS 102.8 AT THIS TIME. COOLING MEASURES STILL IN PLACE. WILL CONTINUE TO MONITOR PT.
--- NOTE | 2018-04-19 18:58 | NUR ---
PT C/O BLADDER FULLNESS, BUT UNABLE TO URINATE. DR MARTIN NOTIFIED. PT WAS STRAIGHT CATHED AND DRAINED OUT 200 ML URINE. ALSO RECHECKED PT'S TEMP, 100.2 (ORAL) AT THIS TIME.
--- NOTE | 2018-04-19 19:20 | NUR ---
PT ENDORSED TO CONTACT CENTER REPRESENTATIVE IN STABLE CONDITION.
--- NOTE | 2018-04-19 19:21 | NUR ---
RECEIVED BEDSIDE REPORT FROM DAY SHIFT NURSE MISTY RN, PT STABLE, NO DISTRESS NOTED, RESTING, IV TO R WRIST 24G, PATENT INTACT, COLOSTOMY BAG IN PLACE DRAINING LIGHT BROWN LIQUID, PT ON ROOM AIR, NO SOB, JOSEPH CATH TO R IJ DRESSING CLEAN DRY AND INTACT,INITIAL ASSESSMENT DONE, ALL SAFETY PRECAUTION MET, CALL LIGHT WITHIN REACH, WILL CONTINUE TO MONITOR.
[2018-04-19 20:00] VITALS: BP 153/73
--- NOTE | 2018-04-19 20:41 | NUR ---
DUE MEDICATION ADMINISTERED, PT TOLERATED WELL, NO DISTRESS NOTED, CALL LIGHT WITHIN REACH, WILL CONTINUE TO MONITOR
--- NOTE | 2018-04-19 23:55 | NUR ---
CHECKED ON PT, PT SLEEPING, NO DISTRESS NOTED, V/S TAKEN, WITHIN PT BASELINE, CALL LIGHT WITHIN REACH, WILL CONTINUE TO MONTIOR.
[2018-04-20] VITALS (9 sets, daily range): BP systolic 114–182; BP diastolic 72–101
[2018-04-20] MEDS: MORPHINE SULFATE 2 MG/ML SYR IVP PRN ×2 (03:08→18:24)
--- NOTE | 2018-04-20 03:08 | NUR ---
PT STATED HAVING PAIN TO THE R LEG, NO SWELLING, REDNESS NOTED TO SITE, NOTIFIED DR. RODRIGUEZ, ORDERED KPAD, PAIN MEDICATION GIVEN, PT TOLERATED WELL, NO DISTRESS NOTED, CALL LIGHT WITHIN REACH, WILL CONTINUE TO MONITOR.
[2018-04-20] MEDS: PIPER/TAZO 2.25GM/D5W PREMIX 50 ML IV SCH ×3 (04:13→21:35)
[2018-04-20] MEDS: BLOOD GLUCOSE MONITORING 1 DEV DEV FS SCH ×4 (06:07→22:00)
[2018-04-20 06:39] LABS: ANION GAP 16.3 (8-16); CARBON DIOXIDE 25.4 mmol/L (21-32); CHLORIDE 98 mmol/L (98-107); GLUCOSE 90 mg/dL (74-106); POTASSIUM 4.7 mmol/L (3.5-5.1); SODIUM SERUM 135 mmol/L (136-145); UREA NITROGEN, BLOOD 36 mg/dL (7-18)
[2018-04-20 06:50] LABS: BASOPHILS % (AUTO) 0.3 % (0.0-2.0); EOSINOPHILS # (AUTO) 0.1 K/uL (0-0.4); EOSINOPHILS % (AUTO) 1.5 % (0.0-4.0); HEMATOCRIT 30.6 % (36-48); HEMOGLOBIN 10.5 g/dL (12.0-16.0); LYMPHOCYTES # (AUTO) 0.9 K/uL (2.5-16.5); LYMPHOCYTES % (AUTO) 11.3 % (20.5-51.1); MEAN CORPUSCULAR HEMOGLOBIN 35 pg (27-31); MEAN CORPUSCULAR HGB CONC 34 g/dL (33-37); MEAN CORPUSCULAR VOLUME 100.6 fL (80-94); MONOCYTES # (AUTO) 0.5 K/uL (0.8-1.0); MONOCYTES % (AUTO) 6.3 % (1.7-9.3); NEUTROPHILS # (AUTO) 6.8 K/uL (1.8-7.7); NEUTROPHILS % (AUTO) 80.6 % (42.2-75.2); PLATELET COUNT (AUTO) 135 K/uL (140-450); RED BLOOD CELL COUNT(AUTO) 3.04 MIL/uL (4.20-5.40); WHITE BLOOD COUNT (AUTO) 8.4 K/uL (4.8-10.8)
[2018-04-20 06:59] LABS: PHOSPHORUS 3.8 mg/dL (2.5-4.9)
--- NOTE | 2018-04-20 07:20 | NUR ---
RECEIVED PT REPORT FROM FOREPART RASPER NURSE, PT IS AWAKE IN BED, NO S/S OF ACUTE DISTRESS OR SOB NOTED. IV SITE ON THE RFA 24 GAUGE SALINE LOCKED. PT ON ROOM AIR, COLOSTOMY INTACT, ABD DRESSING DRY AND INTACT. PER NIGHT NURSE, PT DID NOT PRODUCE ANY URINE. FALL PRECAUTIONS IN PLACE, CALL LIGHT WITHIN REACH. WILL CONTINUE TO MONITOR.
--- NOTE | 2018-04-20 07:32 | NUR ---
ENDORSED PT TO DAY SHIFT NURSE MISTY RN, PT SLEEPING, NO DISTRESS NOTED, CALL LIGHT WITHIN REACH.
[2018-04-20 07:33] LABS: CREATININE 8.3 mg/dL (0.6-1.3)
[2018-04-20] MEDS: LACTULOSE 20 GM/30 ML UDC PO SCH (09:00)
[2018-04-20] MEDS: LORATADINE 10 MG TAB PO SCH (10:01)
[2018-04-20] MEDS: FERROUS SULFATE 325 MG TABEC PO SCH ×2 (10:01→17:00)
--- NOTE | 2018-04-20 10:05 | NUR ---
PT'S FAMILY AT BEDSIDE, PT IS SLEEPY. PT TOOK HER SCHEDULED AM MEDS. LAB DRAWING PT'S BLOOD FOR LACTIC ACID AT THIS TIME.
--- NOTE | 2018-04-20 10:15 | NUR ---
PT EVALUATED BY THE WOUND CARE NURSE AT THIS TIME
--- NOTE | 2018-04-20 10:45 | NUR ---
PT OFF THE FLOOR FOR ABD CT SCAN
--- NOTE | 2018-04-20 10:45 | NUR ---
SKIN ASSESSMENT DONE TO THIS 82 Y/O FEMALE WITH GRAND DAUGHTER GURPREET AT BED SIDE WHO IS THE PRIMARY CARE PROVIDER. PT. IS AAX4 VERBALIZES NEEDS AT THIS TIME. SKIN IS WARM , PRIMARY RN MADE AWARD AND INFORM PT. AND FAMILY MEMBER THAT PT. HAS ELEVATED TEMP. MD MADE AWARE. -MID ABDOMINAL SURGICAL WOUND 13.5 CM IN LENGTH, DRY AND CLEAN WITH MULTIPLE LUCRECIA IN PLACE, NO S/S OF WOUND DEHISCENCE -LLQ ABDOMINAL COLOSTOMY STOMA BEEFY RED, FUNCTIONING WITH SMALL AMOUNT DARK GREEN SEMI-LIQUIDS FECAL MATERIAL OUTPUT. COLOSTOMY 1 3/4" (44MM) 1CM TALL AND OPENING TOWARD 4 O'CLOCK DIRECTION, MOE STOMA SKIN DRY, CLEAN AND INTACT RECOMMENDATIONS: -CLEANSE MID ABD WOUND WITH NS. PAT DRY, APPLY ADAPTIC DRESSING AND COVER WITH ABD PADS SECURE WITH TAPE PRN IF SOILING -OSTOMY CARE PER PROTOCOL AND DURING OSTOMY CARE PLEASE FOLLOW INSTRUCTION BELOW: -CHECK MOE STOMA SKIN CONDITION EVERY TIME WAFER CHANGED Q 5 DAYS AND PRN IF DISPLACED -APPLY STOMA ADHESIVE PAST (OR DANA RING) TO THE WAFER, NEAR THE EDGE OF STOMA SKIN AREA, PAT FLAT. APPLY SKIN PREP TO MOE-STOMA SKIN - USE 2 PIECES ANYA OSTOMY DEVICES WITH 1 3/4� (44MM) CUT TO FIT THE STOMA EXACTLY. NO SKIN SHOWING. APPLY PRE-CUT WAFER TO OSTOMY AND ATTACHED POUCH TO WAFER. CHANGE WAFER Q5 DAYS. -EMPTY AND RINSE POUCH WHEN IT IS 1/3 FULL. CHANGE POUCH Q5 DAYS AND PRN IF LEAK ABOVE INSTRUCTION EXPLAINED AND DEMONSTRATED TO GRAND DAUGHTER. SHE VERBALIZES UNDERSTANDING. PRIMARY RN CONTINUE TEACHING COLOSTOMY CARE.
--- NOTE | 2018-04-20 14:35 | NUR ---
TRANSFERRED IN FROM TELE THIS 82 YR OLD FEMALE PER BED ACCPD. BY LEAD SECTION SUPERVISOR'S FOR CLOSER OBSERVATION DUE TO CT SCAN ABD/PELVIS RESULTS. AWAKE, RESPONDS VERBALLY TO QUESTIONS BUT DISORIENTED TO TIME. UNABLE TO ANSWER WHEN ASKED HER HER AGE. AWARE SHE'S IN A HOSPITAL BUT DOES NOT KNOW NAME OF HOSPITAL. [facility]. SL. GEN. WEAKNESS NOTED. HEPLOCK ON RT WRIST AREA INTACT. LUNGS CLEAR. RESP EASY AND REGULAR. 02 SAT 97% ON RA. ABD DRESSINGS IS DRY AND INTACT. COLOSTOMY BAG IN PLACE. NO DRAINAGE NOTED. RT IJ JOSEPH CATH. INTACT. FOR HEMODIALYSIS TODAY.
--- NOTE | 2018-04-20 14:45 | NUR ---
ENDORSED PT TO THE ICU. FAMILY AT BEDSIDE, PT IS IN NO ACUTE DISTRESS.
[2018-04-20] MEDS: MORPHINE SULFATE 4 MG/ML SYR IV PRN (14:50)
--- NOTE | 2018-04-20 14:50 | NUR ---
GRANDDAUGHTER GURPREET AT BEDSIDE.UPDATED ON PT'S CONDITION.
--- NOTE | 2018-04-20 15:00 | NUR ---
HEMODIALYSIS STARTED AT BEDSIDE.
[2018-04-20] MEDS ORDERED: MILD SOAP AND WATER TP PRN (15:35)
[2018-04-20] MEDS ORDERED: GAUZE TP PRN (15:35)
--- NOTE | 2018-04-20 16:00 | NUR ---
BLADDER SCAN DONE 310 ML NOTED. DE. UPPA NOTIFIED. WILL KEEP PT. NPO FOR NOW. WAITING FOR DR. SIMS TO SEE PT.
[2018-04-20] MEDS ORDERED: ACETAMINOPHEN 650 MG SUPP RC PRN (16:40)
[2018-04-20] MEDS ORDERED: DEXT 5% / NACL 0.9% 500 ML IV SCH (16:55)
[2018-04-20] MEDS ORDERED: DEXT 5% /NACL 0.9% 1,000 ML IV SCH (17:55)
--- NOTE | 2018-04-20 18:00 | NUR ---
PM CARE DONE.
--- NOTE | 2018-04-20 18:35 | NUR ---
OH HERE TO SEE AND EXAMINE PT. SPOKE TO PT'S FAMILY RE: PT'S CONDITION.
--- NOTE | 2018-04-20 19:20 | NUR ---
REPORT GIVEN TO MAURICIO JEROME.
--- NOTE | 2018-04-20 19:20 | NUR ---
RECEIVED BEDSIDE REPORT FROM RN, ELLE, FOR CONTINUITY OF CARE. PT IS AWAKE, VERBAL, ABLE TO MAKE NEEDS KNOWN, CALM. AFEBRILE, TEMP 98.3, BP 154/85, RR=11, SATING 95%, HR 107. ON ROOM AIR, ST ON MONITOR OO=[id number]. LUNG SOUND CLEAR/DIMINSHED ON UPPER/LOWER BILATERAL LOBES. BOWEL SOUND HYPOACTIVE, COLOSTOMY BAG IN TACT, STOOL IS BLACK IN COLOR/MUSHY. D5NS AT 10CC/HR TO 24 GAUGE ON RIGHT WRIST. JOSEPH CATH ON RIGHT SIDE OF NECK. ABDOMINAL SURGICAL WOUND OPEN TO AIR, LUCRECIA IN TACT. NO BLEEDING AT SITE. NO BOYD IN PLACE. HOB ELEVATED ABOVE 30 DEG, SCDS ON BILATERAL LEGS. PT ABLE TO ASSIST IN REPOSITIONING SELF IN BED. STANDARD PRECAUTIONS, DNR, NKA NOTED.
--- NOTE | 2018-04-20 22:10 | NUR ---
INFORMED DR. BERNARD OF HEPARIN BEING HELD PREVIOUSLY, DUE TO POSSIBLE PERF. DR. BERNARD STATED OK TO HOLD. HEPARIN HELD AT THIS TIME.
--- NOTE | 2018-04-20 22:11 | NUR ---
TQ=649, NO INSULIN COVERAGE GIVEN, PT IS CALM/COOPERATIVE.
--- NOTE | 2018-04-20 23:32 | NUR ---
[facility] CALLED ICU, INFORMED THERE IS NO DIALYSIS ORDER FOR TOMORROW.
[2018-04-21] VITALS (9 sets, daily range): BP systolic 137–168; BP diastolic 73–99
--- NOTE | 2018-04-21 00:03 | NUR ---
TEMP 97.3/TEMPORAL SCAN, PT IS AWAKE DENIES PAIN/NAUSEA AT THIS TIME. CALM/COOPERATIVE. HOB ELEVATED, SCDS ON BILATERAL LEGS. HR 99-105.
--- NOTE | 2018-04-21 00:45 | NUR ---
PT GRANDDAUGHTER GURPREET CALLED, UPDATED ON PT CONDITIONS (NO FEVER, DENIES PAIN, AND SLEEPING). GURPREET STATED SHE WILL COME SEE PT IN MORNING.
--- NOTE | 2018-04-21 01:15 | NUR ---
CLEANSED ABDOMINAL INCISIONAL SITE WITH NS, COVERED WITH ADAPTIC DRESSING AND ABD PAD PER ORDER. NO DRAINAGE OR BLEEDING AT INCIONAL SITE, LUCRECIA INTACT. MILD PAIN/PT FACIAL GRIMACING WHEN TOUCHING SITE. COLOSTOMY BAG REMAINS INTACT, NO LEAKING OBSERVED AROUND THE STOMA.
[2018-04-21] MEDS: PIPER/TAZO 2.25GM/D5W PREMIX 50 ML IV SCH ×2 (04:00→12:45)
--- NOTE | 2018-04-21 04:00 | NUR ---
PT SLEEPING QUIETLY, AFEBRILE. REPOSITIONED/TOLERATED WELL. DENIES PAIN/NAUSEA/DISCOMFORT AT THIS TIME.
[2018-04-21 04:47] LABS: BASOPHILS % (AUTO) 0.2 % (0.0-2.0); EOSINOPHILS % (AUTO) 0.5 % (0.0-4.0); HEMATOCRIT 29.8 % (36-48); LYMPHOCYTES # (AUTO) 0.9 K/uL (2.5-16.5); LYMPHOCYTES % (AUTO) 10.5 % (20.5-51.1); MEAN CORPUSCULAR HEMOGLOBIN 34 pg (27-31); MEAN CORPUSCULAR HGB CONC 34 g/dL (33-37); MEAN CORPUSCULAR VOLUME 100.3 fL (80-94); MONOCYTES # (AUTO) 0.8 K/uL (0.8-1.0); MONOCYTES % (AUTO) 9.2 % (1.7-9.3); NEUTROPHILS # (AUTO) 6.8 K/uL (1.8-7.7); NEUTROPHILS % (AUTO) 79.6 % (42.2-75.2); PLATELET COUNT (AUTO) 149 K/uL (140-450); RED BLOOD CELL COUNT(AUTO) 2.97 MIL/uL (4.20-5.40); RED CELL DISTRIBUTION WIDTH 13.9 % (11.6-13.7); WHITE BLOOD COUNT (AUTO) 8.5 K/uL (4.8-10.8)
[2018-04-21 05:02] LABS: ALBUMIN 1.8 g/dL (3.4-5.0); PHOSPHORUS 3.7 mg/dL (2.5-4.9)
[2018-04-21 05:03] LABS: MAGNESIUM 1.9 mg/dL (1.8-2.4); PHOSPHORUS 3.7 mg/dL (2.5-4.9)
[2018-04-21 05:12] LABS: ANION GAP 16.4 (8-16); CARBON DIOXIDE 26.4 mmol/L (21-32); POTASSIUM 3.8 mmol/L (3.5-5.1)
[2018-04-21 05:22] LABS: CREATININE 4.6 mg/dL (0.6-1.3)
[2018-04-21 05:25] LABS: ANION GAP 16.4 (8-16); CARBON DIOXIDE 26.4 mmol/L (21-32); CHLORIDE 98 mmol/L (98-107); GLUCOSE 94 mg/dL (74-106); POTASSIUM 3.8 mmol/L (3.5-5.1); SODIUM SERUM 137 mmol/L (136-145); UREA NITROGEN, BLOOD 16 mg/dL (7-18)
[2018-04-21 05:26] LABS: CREATININE 4.6 mg/dL (0.6-1.3)
--- NOTE | 2018-04-21 06:00 | NUR ---
DENIES PAIN, BLADDER SCANNED PT = 265ML, CALLED DR. BERNARD STATED OK TO NOT STRAIGHT CATH PT RECEIVED DIALYSIS YESTERDAY 1.5L. AM CARES PROVIDED. DRESSING REMAINS INTACT. MINIMAL COLOSTOMY OUTPUT <50ML/ MUSHY.
[2018-04-21] MEDS: BLOOD GLUCOSE MONITORING 1 DEV DEV FS SCH ×4 (07:21→20:49)
--- NOTE | 2018-04-21 07:27 | NUR ---
PROVIDED BEDSIDE REPORT TO MORNING SHIFT QUEENIE MARSHALL.
--- NOTE | 2018-04-21 07:28 | NUR ---
RECEIVED REPORT FROM LENDING ACTIVITIES SUPERVISOR RN AT BEDSIDE, PT IS AAOX4, CROATIAN SPEAKING, VSS, DENIES PAIN, NO S/S OF DISTRESS, DIMINISHED LUNG SOUNDS KAILASH. ON RA, O2 SAT 100%, DENIES CHEST PAIN, SR ON JAVA SOFTWARE ENGINEER, SOFT ABDOMEN WITH HYPOACTIVE BOWEL SOUNDS, SURGICAL WOUND SITE PRESENT TO MIDDLE ABDOMEN, DRESSING C/D/I, COLOSTOMY TO LLQ WITH BLACK COLORED STOOL IN BAG. OLIGURIA, CONTINENT WITH B&B, ABLE TO MOVE ALL EXTREMITIES, SLIGHT WEAKNESS NOTED. SKIN IS WARM AND DRY TO TOUCH, JOSEPH CATH TO RIJ, COVERED WITH DRESSING FOR HD, AV SHUNT TO LEFT ARM, IV SITE TO RIGHT HAND 22GA, RUNNING D5 NS AT 10ML/HR. HOB ELEVATED TO 30 DEGREES, POSITION CHANGED FOR OFF LOAD PRESSURE, SAFETY MEASURES IN PLACE, WILL CONTINUE TO MONITOR.
[2018-04-21] MEDS: FERROUS SULFATE 325 MG TABEC PO SCH ×3 (08:00→17:04)
[2018-04-21] MEDS: LACTULOSE 20 GM/30 ML UDC PO SCH ×2 (09:00→15:16)
[2018-04-21] MEDS: amLODIPine 5 MG TAB PO SCH ×2 (09:00→15:16)
[2018-04-21] MEDS: LORATADINE 10 MG TAB PO SCH ×2 (09:00→15:16)
--- NOTE | 2018-04-21 09:00 | NUR ---
SCHEDULED PO MEDICATION NOT GIVEN DUE TO PT NPO, SPOKE TO DR. HOUSTON, HE SAID IT IS OK TO HOLD NOW AND HE WILL ASK DR. SIMS ABOUT IT.
--- NOTE | 2018-04-21 09:15 | NUR ---
BOYD CATHETER INSERTED WITH 200ML OUTPUT, PT TOLERATED WELL.
--- NOTE | 2018-04-21 10:00 | NUR ---
PT IS RESTING IN BED, NO S/S OF DISTRESS, VSS, DENIES PAIN, POSITION CHANGED FOR OFF LOAD PRESSURE.
--- NOTE | 2018-04-21 12:00 | NUR ---
NO CHANGE OF CONDITION AT THIS TIME, VSS, DENIES PAIN, FAMILY MEMBERS AT BEDSIDE.
[2018-04-21] MEDS: MORPHINE SULFATE 2 MG/ML SYR IVP PRN (12:48)
--- NOTE | 2018-04-21 13:00 | NUR ---
WOUND CARE DONE AT BEDSIDE, PT TOLERATED WELL.
--- NOTE | 2018-04-21 16:00 | NUR ---
PT IS RESTING IN BED, NO FEVER, VSS, DENIES PAIN, POSITION CHANGED FOR OFF LOAD PRESSURE.
--- NOTE | 2018-04-21 18:00 | NUR ---
PT'S BP 177/82 AFTER PRN BP MEDS, DR. LÓPEZ MADE AWARE.
[2018-04-21] MEDS ORDERED: FAMOTIDINE 20 MG TAB PO PRN (18:25)
[2018-04-21] MEDS ORDERED: cloNIDine 0.1 MG TAB PO PRN (18:25)
--- NOTE | 2018-04-21 19:20 | NUR ---
REPORT GIVEN TO SECTION 8 PROPERTY MANAGER NURSE FOR CONTINUE OF CARE, PT IS IN STABLE CONDITION AT THIS TIME.
--- NOTE | 2018-04-21 19:30 | NUR ---
RECEIVED PATIENT ON BED AWAKE, ALERT, SPEAKS ESTONIAN ONLY' ABLE TO MOVE LIMBS FREELY. BREATHING EVEN AND UNLABORED, ON ROOM AIR. CARDIACSCOPE SHOWS ON SINUS TACHY HR 104/MIN, NO ARRHYTHMIAS SEEN. PERIPHERAL PULSES +; IV CANNULA G24 ON RIGHT WRIST, WITH HD ACCESS ON RIGHT INTERNAL JUGULAR; WITH NON WORKING AV SHUNT ON LEFT ARM.;ABDOMEN SOFT,COLOSTOMY IN PLACE AND DRAINING TO SMALL AMOUNT OF LOOSE TO SOFT DARK BROWN STOOL; POST SURGICAL INCISION DRESSING CLEAN AND INTACT. WITH BOYD CATH IN PLACE, DRAINING TO CLEAR YELLOW TO PINKISH COLOR URINE OUTPUT; INTACT.
--- NOTE | 2018-04-21 19:40 | NUR ---
DAUGHTER AT BEDSIDE; INFORMED AND AWARE THAT PATIENT WILL BE TRANSFERRED TO TELE UNIT ANYTIME SOON.
--- NOTE | 2018-04-21 20:45 | NUR ---
ACCUCHECK DONE; BS 137; NO INSULIN GIVEN PER SLIDING SCALE.
[2018-04-21] MEDS: ACETAMINOPHEN 325 MG TAB PO PRN (20:48)
--- NOTE | 2018-04-21 21:00 | NUR ---
TRANSFERRED TO TELEMETRY ROOM 114 PER BED IN FAIR CONDITION; ENDORSED TO QUEENIE AVILA FOR CONTINUITY OF CARE.
--- NOTE | 2018-04-21 21:04 | NUR ---
PT REPORTED THAT PT HAS ST DEPRESSION TAKEN AT TELEMONITOR [id number]. LÓPEZ AWARE. HE HAS HX OF ST DEPRESSION LAST 04/18 354 AT PER RECORD IN HER CHART. INFORM Eric TORRES IN THE AM AGAIN.
--- NOTE | 2018-04-21 21:10 | NUR ---
RECEIVED FROM ICU PT, AWAKE ALERT X3. PT GUINEAN SPEAKING ACCOMPANIED BY NANDO, DAUGHTER. PT TELE , ST ON BBB PER ENDORSEMENT. WITH Q JOSEPH IJ FOR DIALYSIS PORT; WITH L AV SHUNT (DOES NOT WORK), PT ON LEFT ARM RESTRICTION. PT ON F/C W/ YELLOW COLOR, PATENT AND DRAINING.LAST HD WAS YESTERDAY PER ENDORSEMENT DRAINED W/ 1.5 LITERS. HD EVERY MWF.PT HAD FEVER PER ENDORSEMENT AT PREVIOUS READING 100. 2. WILL TAKE THE VS LITA THE TEMP. PT ON SCD DEVICE. BED ALARM ON. POC REVIEWED W/ FAIMILY. CALL LIGHT WITHIN EASY REACH.
--- NOTE | 2018-04-21 21:15 | NUR ---
VS TAKEN, BLOOD PRESSURE= 137/70 REASSESSMENT DONE AFTER HYDRALAZINE GIVEN AT ICU. HR= 85; TEMP AT 99.5 NORMAL, WILL CONTINUE TO MONITOR
--- NOTE | 2018-04-21 22:58 | NUR ---
PLS DELETE OCCURENCE/COLUMN FOR ECG TIME 1958. WRONG PATIENT
[2018-04-22] VITALS: BP 124/62
--- NOTE | 2018-04-22 | NUR ---
ERROR ON PULSE OXIMETRY NOT 73%; AMEND TO 98%
[2018-04-22 04:00] VITALS: BP 149/72
--- NOTE | 2018-04-22 04:00 | NUR ---
CHANGED PT'S COLOSTOMY, CLEANED PT, TURNED Q2, WITH MAX. ASSISTANCE
[2018-04-22] MEDS: BLOOD GLUCOSE MONITORING 1 DEV DEV FS SCH ×4 (05:22→21:33)
[2018-04-22 07:09] LABS: BASOPHILS % (AUTO) 0.5 % (0.0-2.0); EOSINOPHILS # (AUTO) 0.1 K/uL (0-0.4); EOSINOPHILS % (AUTO) 1.2 % (0.0-4.0); HEMATOCRIT 30.7 % (36-48); HEMOGLOBIN 10.6 g/dL (12.0-16.0); MEAN CORPUSCULAR HEMOGLOBIN 35 pg (27-31); MEAN CORPUSCULAR HGB CONC 35 g/dL (33-37); MEAN CORPUSCULAR VOLUME 101.2 fL (80-94); MONOCYTES # (AUTO) 0.6 K/uL (0.8-1.0); NEUTROPHILS # (AUTO) 7.1 K/uL (1.8-7.7); NEUTROPHILS % (AUTO) 80.3 % (42.2-75.2); PLATELET COUNT (AUTO) 163 K/uL (140-450); RED BLOOD CELL COUNT(AUTO) 3.03 MIL/uL (4.20-5.40); RED CELL DISTRIBUTION WIDTH 14.5 % (11.6-13.7); WHITE BLOOD COUNT (AUTO) 8.8 K/uL (4.8-10.8)
--- NOTE | 2018-04-22 07:15 | NUR ---
ENDORSED TO NEXT SHIFT NURSE. AFEBRILE. PT FOR MONITORING POST OP. PT IN FAIR CONDITION
--- NOTE | 2018-04-22 07:25 | NUR ---
RECEIVED BEDSIDE REPORT FROM ASSOCIATE PROFESSOR OF SOCIOLOGY RN. SAMI SPEAKING. AOX3. DENIES PAIN AND DISCOMFORT. NO S/S DISTRESS. RT IJ JOSEPH CATH FOR DIALYSIS. NOT DUE FOR DIALYSIS TODAY- NEXT HD WILL BE 04/23/18. ESRD ON HD M/W/F. NONFUNCTIONAL LT AV SHUNT. SKIN INTACT. IV SITE PATENT AND ASYMPTOMATIC, ON SL. UPDATED BOARD AND EXPLAINED POC. ALL SAFETY PRECAUTIONS IN PLACE, WILL CONTINUE TO MONITOR.
[2018-04-22 07:27] LABS: ANION GAP 16.5 (8-16); CARBON DIOXIDE 23.1 mmol/L (21-32); CHLORIDE 98 mmol/L (98-107); GLUCOSE 143 mg/dL (74-106); POTASSIUM 3.6 mmol/L (3.5-5.1); SODIUM SERUM 134 mmol/L (136-145); UREA NITROGEN, BLOOD 30 mg/dL (7-18)
[2018-04-22 07:39] LABS: CREATININE 6.6 mg/dL (0.6-1.3); MAGNESIUM 2.5 mg/dL (1.8-2.4); PHOSPHORUS 3.8 mg/dL (2.5-4.9)
[2018-04-22 08:00] VITALS: BP 149/66
[2018-04-22] MEDS: LACTULOSE 20 GM/30 ML UDC PO SCH (08:46)
[2018-04-22] MEDS: LORATADINE 10 MG TAB PO SCH (08:47)
[2018-04-22] MEDS: FERROUS SULFATE 325 MG TABEC PO SCH ×2 (08:47→16:25)
[2018-04-22] MEDS: CARVEDILOL 6.25 MG TAB PO SCH ×2 (08:47→21:20)
[2018-04-22] MEDS: amLODIPine 5 MG TAB PO SCH ×2 (08:48→21:21)
--- NOTE | 2018-04-22 10:03 | NUR ---
PT RESTING IN BED, AROUSABLE BY VOICE. NO C/O PAIN OR DISCOMFORT. ALL SAFETY PRECAUTIONS IN PLACE, WILL CONTINUE TO MONITOR.
[2018-04-22 12:00] VITALS: BP 155/76
[2018-04-22] MEDS: INSULIN LISPRO SLIDING SCALE 100 UNITS/ML VIAL SUBQ PRN (12:22)
[2018-04-22] MEDS ORDERED: VIT-B COMP/VIT-C/FOLIC ACID 1 TAB PO SCH (13:07)
--- NOTE | 2018-04-22 14:16 | NUR ---
DAUGHTER AT BEDSIDE. SMALL AMOUNT (10ML) SOFT, DARK GREEN STOOL NOTED IN COLOSTOMY BAG.
--- NOTE | 2018-04-22 14:34 | NUR ---
04/22/18 RD FOLLOW UP COMPLETED PLEASE REFER TO NUTRITION PROGRESS NOTE UNDER CARE ACTIVITY FOR ESTIMATED NUTRITION NEEDS. RD RECOMMENDATIONS: 1. CONSIDER ADDING RENAL AND CCHO 60 GM TO SOFT DIET PT�S PO INTAKE IMPROVES. 2. RECOMMEND NEPRO TID TO OPTIMIZE NUTRITION INTAKE. 3. RECOMMEND ADDING NEPHROVITE DAILY FOR APPROPRIATE VITAMIN SUPPLEMENTATION DURING DIALYSIS. 4. RD TO FOLLOW-UP 2-3 DAYS, HIGH RISK THOMAS MCGRATH, RD
--- NOTE | 2018-04-22 15:34 | NUR ---
CLARIFIED WITH DR. HOUSTON TO IRRIGATE THE BLADDER FIRST AND THEN D/C BOYD CATH.
--- NOTE | 2018-04-22 15:41 | NUR ---
CALLED [facility] AND INFORMED NON EMERGENCY SERVICES AMBULANCE DRIVER OF ORDER FOR HEMODIALYSIS EARLY TOMORROW MORNING. NON EMERGENCY SERVICES AMBULANCE DRIVER VERBALIZED UNDERSTANDING.
[2018-04-22 16:00] VITALS: BP 132/66
--- NOTE | 2018-04-22 16:12 | NUR ---
IRRIGATED BOYD PER ORDERS. NO CLOTS. BOYD CATH DISCONTINUED W/ 250 ML OUTPUT.
--- NOTE | 2018-04-22 16:42 | NUR ---
EXPLAINED BLADDER TRAINING TO PATIENT USING TRANSLATION SERVICES #[id number]. PT STATES SHE IS CONTINENT. DISCUSSED URINATION METHODS. PATIENT WISHES FOR BEDSIDE COMMODE. WILL PLACE COMMODE AT BEDSIDE AND EDUCATED PT TO USE CALL LIGHT BEFORE NEEDING TO USE THE COMMODE. PT VERBALIZED COMPLETE UNDERSTANDING. PT ALSO STATES SHE HAS RIGHT FOOT PAIN. STATES SHE HAD SIMILAR PAIN BEFORE AND TREATED SUCCESSFULLY WITH HEATING PAD. WILL ASK FOR A HEATING PAD ORDER. SKIN WARM AND DRY, CSM INTACT BILATERALLY, PEDAL PULSES 2+ BILATERALLY.
--- NOTE | 2018-04-22 17:44 | NUR ---
STOOL LEAKING OUT FROM COLOSTOMY BAG. NEW COLOSTOMY BAG APPLIED. DRESSING OVER INCISION CHANGED WELL.
--- NOTE | 2018-04-22 19:24 | NUR ---
ENDORSED POC TO QUALITY ASSURANCE TESTER RN. PT IN STABLE CONDITION.
--- NOTE | 2018-04-22 19:30 | NUR ---
RECEIVED REPORT FORM ARIES RN DAYSHIFT NURSE AT BEDSIDE FOR CONTINUITY OF CARE, PT IN STABLE CONDITION.
[2018-04-22 20:00] VITALS: BP 131/65
--- NOTE | 2018-04-22 20:00 | NUR ---
PT IN BED RESTING. SHE CALLED AND C/O REGARDING FOOT AND COLOSTOMY BAG. HANDBAG FRAMES INSPECTOR SYSTEM [employer] USED WITH HANDBAG FRAMES INSPECTOR CHRIS # [id number]. PT EXPRESSED THAT SHE WASN'T CONCERNED ABOUT COLOSTOMY BAG JUST TOP OF RIGHT FOOT THAT WAS HURTING. STRONG PETAL PULSE FELT AND PT ABLE TO MOVE TOES. PT C/O THAT K PACK WASN'T HOT ENOUGH.THROUGH HANDBAG FRAMES INSPECTOR PT REMINDED THAT IF SHE NEEDS BED ALEMAN TO CALL BECAUSE WE ARE ASSISTING HER WITH BLADDER TRAINING . PT VERBALIZED UNDERSTANDING AND SAID THAT THEY DID REVIEW THE BLADDER TRAINING WITH HER LAST SHIFT. THROUGH HANDBAG FRAMES INSPECTOR, PT MEDICATION EDUCATION GIVEN. V/S FOLLOWS T 100 P 86 R 18 B/P 131/65 02 97% ON ROOM AIR.
[2018-04-22] MEDS: ACETAMINOPHEN 325 MG TAB PO PRN (21:46)
--- NOTE | 2018-04-22 21:50 | NUR ---
PT GIVEN DUE MEDS OF COREG, NORVASC AND HEPARIN . PT ALSO GIVEN REQUESTED TYLENOL FOR DISCOMFORT IN FOOT AND COOLING MEASURES FOR INCREASED TEMP. WILL CONTINUE TO MONITOR FOR TEMP AND PAIN RELIEF.
[2018-04-23] VITALS: BP 111/54
--- NOTE | 2018-04-23 | NUR ---
PT IN BED OFFERED BED ALEMAN WITH NO URINE OUTPUT NOTED. V/S A FOLLOWS T 97.3 P 66 R 18 B/P 111/54 02 96% ON ROOM AIR. PT HAS NO C/O OF PAIN OR DISTRESS NOTED.
[2018-04-23 04:00] VITALS: BP 121/57
--- NOTE | 2018-04-23 04:00 | NUR ---
JOSELIN NOTED FOR HEMODIALYSIS B/P THIS AM. PT RSTING NO S/S OF PAIN OR DISTRESS NOTED, ALL FALLS PRECAUTIONS IN PLACE,. V/S FOLLOWS T 98.2 P 65 R 18 B/P 121/57 02 96 ON R/A. F/S IS 104 NO COVERAGE NEEDED.
[2018-04-23] MEDS: BLOOD GLUCOSE MONITORING 1 DEV DEV FS SCH ×2 (05:56→12:05)
[2018-04-23 06:21] LABS: CARBON DIOXIDE 22.8 mmol/L (21-32); CHLORIDE 97 mmol/L (98-107); GLUCOSE 106 mg/dL (74-106); POTASSIUM 3.8 mmol/L (3.5-5.1); SODIUM SERUM 133 mmol/L (136-145); UREA NITROGEN, BLOOD 41 mg/dL (7-18)
[2018-04-23 06:24] LABS: CREATININE 8.4 mg/dL (0.6-1.3); MAGNESIUM 2.5 mg/dL (1.8-2.4); PHOSPHORUS 3.8 mg/dL (2.5-4.9)
[2018-04-23 06:34] LABS: BASOPHILS % (AUTO) 0.2 % (0.0-2.0); EOSINOPHILS # (AUTO) 0.2 K/uL (0-0.4); EOSINOPHILS % (AUTO) 2.4 % (0.0-4.0); HEMATOCRIT 27.3 % (36-48); HEMOGLOBIN 9.5 g/dL (12.0-16.0); LYMPHOCYTES % (AUTO) 11.3 % (20.5-51.1); MEAN CORPUSCULAR HEMOGLOBIN 35 pg (27-31); MEAN CORPUSCULAR HGB CONC 35 g/dL (33-37); MEAN CORPUSCULAR VOLUME 100.2 fL (80-94); MONOCYTES # (AUTO) 0.6 K/uL (0.8-1.0); MONOCYTES % (AUTO) 6.6 % (1.7-9.3); NEUTROPHILS # (AUTO) 7.3 K/uL (1.8-7.7); NEUTROPHILS % (AUTO) 79.5 % (42.2-75.2); PLATELET COUNT (AUTO) 151 K/uL (140-450); RED BLOOD CELL COUNT(AUTO) 2.72 MIL/uL (4.20-5.40); RED CELL DISTRIBUTION WIDTH 14.3 % (11.6-13.7); WHITE BLOOD COUNT (AUTO) 9.2 K/uL (4.8-10.8)
--- NOTE | 2018-04-23 07:30 | NUR ---
RECEIVED PT IN BED, AAO WITH PERIODS OF FORGETFULNESS, REINFORCEMENT PROVIDED. NO SOB NOTED. NO C/O PAIN AT THIS TIME. IV TO RT HAND CAME OFF DURING SHIFT CHANGED, WILL RESTART A NEW LINE SOON. WITH RT IJ DIALYSIS CATH IN PLACE, DRESSING DRY AND INATCT, NO S&S OF INFECTION. CHEST, DIMINISHED AIR ENTRY TO THE BASES. ABDOMEN SOFT, BOWEL SOUNDS PRESENT. WITH VERTICAL SURGICAL INCISION, NO S&S OF INFECTION NOTED ON SURGICAL SITE, LUCRECIA INTACT, WITH COLOSTOMY ON LEFT ABDOMEN DRAINING SMALL AMOUNTS DARK BROWN SOFT STOOLS. WILL REPOSITION PT EVERY 2 HRS. INSTRUCTED PT TO CALL FOR ASSISTANCE, CALL LIGHT WITHIN REACH, PT VERBALIZED UNDERSTANDING.
--- NOTE | 2018-04-23 07:30 | NUR ---
REPORT GIVEN TO YAJAIRA RN DAYSHIFT NURSE AT BEDSIDE FOR CONTINUITY OF CARE, PT IN STABLE CONDITION.
[2018-04-23 08:00] VITALS: BP 126/61
[2018-04-23] MEDS ORDERED: CARV6.252 PO (08:19)
[2018-04-23] MEDS ORDERED: EPOETIN ALFA 2,000 UNITS/ML VIAL IV SCH (09:00)
[2018-04-23] MEDS: CARVEDILOL 6.25 MG TAB PO SCH (09:00)
[2018-04-23] MEDS: amLODIPine 5 MG TAB PO SCH (09:00)
[2018-04-23] MEDS ORDERED: VIT-B COMP/VIT-C/FOLIC ACID 1 TAB PO SCH (09:00)
--- NOTE | 2018-04-23 09:33 | NUR ---
MADE A FOLLOW UP TO [facility] AND SPOKE WITH HOSEA, SHE STATED THAT THEY ARE AWARE AND DIALYSIS NURSE WILL BE HERE IN AN HOUR.
[2018-04-23] MEDS: FERROUS SULFATE 325 MG TABEC PO SCH (09:44)
[2018-04-23] MEDS: LORATADINE 10 MG TAB PO SCH (09:44)
[2018-04-23] MEDS: LACTULOSE 20 GM/30 ML UDC PO SCH (09:45)
--- NOTE | 2018-04-23 10:11 | NUR ---
HD ON GOING AT THE BEDSIDE. PT'S GRAND DAUGHTER HERE VISITING, NOTIFIED WITH THE PLAN FOR TRANSFER TO SNF FOR PT., PT AND GRAND DAUGHTER VERBALIZED UNDERSTANDING.
--- NOTE | 2018-04-23 10:45 | NUR ---
RECEIVED ORDER FOR SNF FOR P.T. FAXED INFORMATION OF [facility]AC[facility], PHONE [phone]
--- NOTE | 2018-04-23 10:49 | NUR ---
PT'S PRESENT IV CAME OFF DURING SHIFT CHANGE, SPOKE WITH DR. THAO, STATED OKAY NOT TO ESTABLISH A NEW IV LINE SINCE PT IS GOING TO BE TRANSFERRED TO [facility] AFTER HD TODAY.
[2018-04-23] MEDS ORDERED: NACL 0.9% 1,000 ML IV SCH (11:10)
[2018-04-23 12:00] VITALS: BP 107/62
[2018-04-23] MEDS: INSULIN LISPRO SLIDING SCALE 100 UNITS/ML VIAL SUBQ PRN (12:04)
[2018-04-23 13:20] VITALS: BP 129/66
--- NOTE | 2018-04-23 13:20 | NUR ---
HD COMPLETED, 1.5 LITERS OUT PER HD NURSE. PT TOLERATED PROCEDURE WELL.
--- NOTE | 2018-04-23 14:06 | NUR ---
PATIENT WILL GO TO [facility] ROOM [address] UNDER [address] MAYEN. I SPOKE WITH AC AT [facility]. THEY SET UP TRANSPORT WITH [facility], AND THEY WILL CLAIMS ADJUSTER PATIENT BETWEEN 5P.M. AND 6P.M. AC AT [facility] SAID THEY WILL ARRANGE THE TRANSPORT TO AND FROM THE DIALYSIS CENTER. I INFORMED YAJAIRA JEROME.
--- NOTE | 2018-04-23 15:30 | NUR ---
DISCHARGE PHOTOS TAKEN AND DOCUMENTED.
[2018-04-23] MEDS ORDERED: AMLO5TAB6 PO (15:39)
--- NOTE | 2018-04-23 16:00 | NUR ---
REPOST GIVEN TO HELEN AT [facility].
--- NOTE | 2018-04-23 16:30 | NUR ---
COLOSTOMY BAG CHANGED, DRAINED 500 MLS OF DARK BROWN LIQUID STOOLS.
--- NOTE | 2018-04-23 17:00 | NUR ---
PT WHEELED OUT BY [facility] IN STABLE CONDITION. NO SOB NOTED. NO COMPLAINTS MADE. GRAND DAUGHTER WENT WITH PT.
== END 2018-04-23 17:00 | DRG 329 ==
LOC: MED 08:05 → MTU 10:56 → MIC 04-16 20:45 → MTU 04-17 17:20 → MIC 04-20 14:20 → MTU 04-21 21:00
PROVIDERS: ADMIT General Practice; ATTEND General Practice
PROC: 0DBN8ZX Excision of Sigmoid Colon, Via Natural or Artificial Opening Endoscopic, Diagnostic (ICD-10-PCS; 2018-04-14)
PROC: 5A1D70Z Performance of Urinary Filtration, Intermittent, Less than 6 Hours Per Day (ICD-10-PCS; 2018-04-14)
PROC: 5A1D70Z Performance of Urinary Filtration, Intermittent, Less than 6 Hours Per Day (ICD-10-PCS; 2018-04-15)
PROC: 30233N1 Transfusion of Nonautologous Red Blood Cells into Peripheral Vein, Percutaneous Approach (ICD-10-PCS; 2018-04-15)
PROC: 0DBP0ZZ Excision of Rectum, Open Approach (ICD-10-PCS; 2018-04-16)
PROC: 0DBN0ZZ Excision of Sigmoid Colon, Open Approach (ICD-10-PCS; 2018-04-16)
PROC: 0D1N0Z4 Bypass Sigmoid Colon to Cutaneous, Open Approach (ICD-10-PCS; principal; 2018-04-16 15:30)
PROC: 02HV33Z Insertion of Infusion Device into Superior Vena Cava, Percutaneous Approach (ICD-10-PCS; 2018-04-18)
PROC: B548ZZA Ultrasonography of Superior Vena Cava, Guidance (ICD-10-PCS; 2018-04-18)
PROC: 5A1D70Z Performance of Urinary Filtration, Intermittent, Less than 6 Hours Per Day (ICD-10-PCS; 2018-04-18)
PROC: 5A1D70Z Performance of Urinary Filtration, Intermittent, Less than 6 Hours Per Day (ICD-10-PCS; 2018-04-20)
PROC: 5A1D70Z Performance of Urinary Filtration, Intermittent, Less than 6 Hours Per Day (ICD-10-PCS; 2018-04-23)
DX: C19 Malignant neoplasm of rectosigmoid junction (principal); I50.43 Acute on chronic combined systolic (congestive) and diastolic (congestive) heart failure; N18.6 End stage renal disease; T82.868A Thrombosis due to vascular prosthetic devices, implants and grafts, initial encounter; C85.90 Non-Hodgkin lymphoma, unspecified, unspecified site; I13.11 Hypertensive heart and chronic kidney disease without heart failure, with stage 5 chronic kidney disease, or end stage renal disease; K56.609 Unspecified intestinal obstruction, unspecified as to partial versus complete obstruction; K81.0 Acute cholecystitis; R65.10 Systemic inflammatory response syndrome (SIRS) of non-infectious origin without acute organ dysfunction; E87.1 Hypo-osmolality and hyponatremia; E44.1 Mild protein-calorie malnutrition; Z68.1 Body mass index [BMI] 19.9 or less, adult; K59.00 Constipation, unspecified; E11.22 Type 2 diabetes mellitus with diabetic chronic kidney disease; K57.90 Diverticulosis of intestine, part unspecified, without perforation or abscess without bleeding; Z66 Do not resuscitate; R42 Dizziness and giddiness; E87.6 Hypokalemia; E83.39 Other disorders of phosphorus metabolism; E87.5 Hyperkalemia; Y83.2 Surgical operation with anastomosis, bypass or graft as the cause of abnormal reaction of the patient, or of later complication, without mention of misadventure at the time of the procedure; D63.8 Anemia in other chronic diseases classified elsewhere; E83.41 Hypermagnesemia; Z99.2 Dependence on renal dialysis; Z79.899 Other long term (current) drug therapy; Z83.3 Family history of diabetes mellitus; Z82.49 Family history of ischemic heart disease and other diseases of the circulatory system; Y92.89 Other specified places as the place of occurrence of the external cause; Z79.84 Long term (current) use of oral hypoglycemic drugs
CPT/HCPCS: 36415; 36600; 45381; 71045; 76705; 80048; 80053; 81001; 82040; 82140; 82150; 82378; 82435; 82565; 82803; 82947; 82948; 82977; 83036; 83605; 83690; 83735; 83880; 84100; 84132; 84295; 84436; 84443; 84484; 84520; 85025; 85610; 85730; 86886; 86900; 86901; 86920; 87040; 87081; 87086; 88305; 88309; 88313; 88342; 90935; 93005; 93925; 93970; 96360; 97110; 97116; 97164; 97530; 99285; C1758; J0330; J0360; J0885; J1100; J1170; J1200; J1610; J1642; J1644; J1815; J1885; J2001; J2060; J2250; J2270; J2405; J2543; J2704; J2710; J3010; J3480; J3490; J7030; J7042; J7060; P9016; Q0092

== ENCOUNTER 2018-05-29 19:21 | Emergency (ER) | payer OTHER ==
[~2018-05-29] VITALS: Ht 139.7 cm; Wt 43.1 kg
[~2018-05-29 19:21] MED LIST changes: -ASPI-1718 PO; -BISA5TAB79 PO; +CARV6.252 PO; -LACT10CA PO; -LISI-424 PO; -MECL-272 PO; +MULT-1469 PO; -ROC.25 PO; +SEVE800T6 PO; -SITA25TA3 PO
[2018-05-29 19:30] VITALS: BP 151/65
--- NOTE | 2018-05-29 19:37 | NUR ---
ASSISTED TO BED 12 WITH WALKER. ACCOMPANIED BY FELY.
--- NOTE | 2018-05-29 19:54 | NUR ---
PT TO ED SENT FROM PRIMARY MD TO R/O PNA. PT REPORTS COUGH AND FEVER X 1 DAY. LUNG SOUNDS DIMINSHED BILAT. NO RESPIRATORY DISTRESS NOTED. RESP EVEN AND REGULAR. PT D/C FROM SNF 1 DAY AGO. PT PLACED INTO BED, PENDING MD MCGOWAN.
--- NOTE | 2018-05-29 21:18 | NUR ---
Patient discharged with v/s stable. Written and verbal after care instructions given and explained. Patient alert, oriented and verbalized understanding of instructions. Wheel Chair Assisted with . All questions addressed prior to discharge. ID band removed. Patient advised to follow up with PMD. Rx of AZITHROMYCIN, PREDNISONE given. Patient educated on indication of medication including possible reaction and side effects. Opportunity to ask questions provided and answered.
[2018-05-29 21:19] VITALS: BP 148/70
== END 2018-05-29 21:19 | disposition home or self-care (01) ==
LOC: MED 19:21
DX: J18.9 Pneumonia, unspecified organism (principal); E11.9 Type 2 diabetes mellitus without complications; I10 Essential (primary) hypertension; N28.9 Disorder of kidney and ureter, unspecified; Z90.49 Acquired absence of other specified parts of digestive tract; Z79.899 Other long term (current) drug therapy
CPT/HCPCS: 71045; 99283; Q0092